=== PATIENT | female | born 1965 | race Caucasian/White ===

== ENCOUNTER → 2017-03-17 11:20 | Outpatient (CLI) | payer BC, SELFPAY ==
--- NOTE | 2017-03-17 11:27 | XR_ITS ---
XR knee RT 4V Comparison: Ultrasound right knee 02/14/2017 History: . Right knee pain. Walking last night and felt a pull and pop sensation he feels like he cannot the right. Technique: Weightbearing AP, lateral and Cox views were performed as well as oblique. Findings Very: Large patient. Lateral film demonstrates a small moderate joint effusion suprapatella bursa. No discrete fracture, but internal derangement suspect. Borderline narrowing medial compartment. [place] view demonstrates a lateral tilt of the patella but patella articulates satisfactorily with the femoral trochlear groove. Mild hypertrophic lipping along the lateral margin of patella at patellofemoral joint ' Impression: ] . No fracture evident. Joint effusion suprapatella bursa. Large patient. Satisfactory patellofemoral relationships, but noting accentuated lateral tilt of patella.
== END ==
PROVIDERS: PCP Internal Medicine Adolescent Medicine; Visit Provider Internal Medicine Adolescent Medicine
DX: M25.561 Pain in right knee (principal)
CPT/HCPCS: 73564

== ENCOUNTER → 2017-04-17 10:09 | Outpatient (CLI) | payer BC, SELFPAY ==
[2017-04-17 11:08] LABS: Basophils % 0.3 % (0.1-2.0); Eosinophils # 0.2 K/mm3 (0.0-0.4); Hematocrit 36.4 % (37.0-47.0); Hemoglobin 10.3 g/dL (12.2-16.2); Lymphocytes # 2.1 K/mm3 (0.7-4.5); Lymphocytes % 28.3 K/mm3 (10-50); Mean Corpuscular HGB Conc 28.2 g/dL (31.8-35.4); Mean Corpuscular Hemoglobin 21.4 pg (27.0-31.2); Mean Corpuscular Volume 75.7 fl (81-99); Monocytes # 0.5 K/mm3 (0.1-1.0); Neutrophils # 4.6 K/mm3 (1.8-7.8); Neutrophils % 62.4 % (37.0-80.0); Platelet Count 124 K/mm3 (142-424); Red Blood Count 4.81 M/mm3 (4.20-5.40); Red Cell Distribution Width 17.5 % (11.5-17.5); White Blood Count 7.4 K/mm3 (4.8-10.8)
[2017-04-17 12:02] LABS: Anion Gap 15.6 mEq/L (5-15); Blood Urea Nitrogen 16 mg/dL (7-18); Carbon Dioxide 27 mmol/L (21.0-32.0); Chloride 98 mmol/L (98-107); Creatinine,Serum 1.48 mg/dL (0.55-1.02); Estimated Glomerular Filt Rate 37 ml/min (>60); Ferritin 19 ng/mL (8-388); GFR (African American) 45 ML/MIN (>60); Glucose 366 mg/dL (74-106); Potassium 5.6 mmoL/L (3.5-5.1); Sodium 135 mmol/L (136-145)
== END ==
PROVIDERS: PCP Internal Medicine Adolescent Medicine; Visit Provider Nurse Practitioner Family
DX: E11.42 Type 2 diabetes mellitus with diabetic polyneuropathy (principal)
CPT/HCPCS: 36415; 80048; 82728; 85025

== ENCOUNTER 2017-04-25 07:03 | Day surgery (SDC) | payer BC, SELFPAY ==
[2017-04-25] VITALS (17 sets, daily range): BP systolic 109–161; BP diastolic 41–102; PULSE 96–113; RESP 14–99; TEMP 36.9; O2SAT 4–100; BMI 49.8
--- NOTE | 2017-04-25 08:46 | P.PCN_ITS ---
[facility] Procedure Note Procedure Note:: Upper Endoscopy Procedure Report: Esophagogastrojejunoscopy with cold biopsies Endoscopost: Yon Leigh II, MD Referring Physician: Flako Merino M.D. Date of Procedure: April 25, 2017 Equipment: Olympus GIF 180 standard upper endoscope Sedation: Fentanyl 200 mg IV/ Versed 11 mg IV Indications: Mrs. Cosby is a 51-year-old female with iron deficiency anemia. The patient did have a Rafal-en-Y gastric bypass (Dr. Aaron Houser) more than 10 years ago. She reports no melena. The patient reports no abdominal pain, weight loss, heartburn, reflux, indigestion or dyspepsia. She reports no dysphagia. She did have prior cholecystectomy in 2000. She does have chronic diabetes with polyneuropathy. She reports no use of anticoagulation or NSAIDs. She has not had any recent upper endoscopy and has not had prior colonoscopy. Procedure: Prior to the procedure, a history and physical exam was performed, and patient' s medications and allergies were reviewed. The risks, benefits and alternatives of the sedation and procedure were discussed with the patient. All questions were answered and informed consent was obtained. The patient was brought to the procedure room. Patient identification and proposed procedure were verified by the physician and the nurse. The patient was placed in a left lateral decubitus position and the scope was passed under direct vision. Throughout the procedure, the patient's blood pressure, pulse, and oxygen saturations were monitored continuously. The upper GI endoscopy was accomplished without difficulty. The patient tolerated the procedure well. Findings: The scope was passed directly into the upper esophagus and advanced to the Rafal limbs of jejunum. The jejunal mucosa of the afferent and efferent limbs were normal with normal mucosa and conniventes. Cold biopsies were taken from the jejunum. The scope was withdrawn through a normal gastric stoma into the gastric pouch. There was minimal erythema of the gastric pouch. The stomal anastomosis was normal and widely patent. There was no hiatal hernia. Cold biopsies were taken from the pouch. The scope was then withdrawn into the esophagus. The remainder of the esophageal mucosa was normal. Impression: 1. Normal Rafal-en-Y gastric bypass anatomy without anastomotic or stomal ulcerations Plan: I do feel that the patient most likely has anemia secondary to Rafal-en-Y gastric bypass. I will discuss the findings with the patient and family. I will proceed with diagnostic colonoscopy.
--- NOTE | 2017-04-25 08:52 | HMH.PROC ---
[facility] Procedure Note Procedure Note:: Colonoscopy Procedure Report: Colonoscopy with cold snare polypectomy and Endo Clip placement Endoscopist: Yon Leigh II, MD Referring physician: Flako Merino M.D. Date of Procedure: April 25, 2017 Equipment: Olympus 180 variable stiffness pediatric colonoscope Sedation: Fentanyl 200 mg IV/ Versed 17 mg IV Indication: Mrs. Cosby is a 51-year-old female with iron deficiency anemia. The patient did have a Rafal-en-Y gastric bypass (Dr. Aaron Houser) more than 10 years ago. She reports no melena. The patient reports no abdominal pain, weight loss, change in her bowel habits or family history of colon cancer or stomach cancer. She did have prior cholecystectomy in 2000. She does have chronic diabetes with polyneuropathy. She reports no use of anticoagulation or NSAIDs. She has not had any recent upper endoscopy and has not had prior colonoscopy. Her EGD had shown normal Rafal-en-Y gastric bypass anatomy. She does have some occasional hemorrhoidal bleeding which is spotty and bright red. Procedure: Prior to the procedure, a history and physical exam was performed, and patient's medications and allergies were reviewed. The risks, benefits and alternatives of the sedation and procedure were discussed with the patient. All questions were answered and informed consent was obtained. The patient was brought to the procedure room. Patient identification and proposed procedure were verified by the physician and the nurse. The patient was placed in a left lateral decubitus position and the scope was passed under direct vision. Throughout the procedure, the patient's blood pressure, pulse, and oxygen saturations were monitored continuously. The colonoscopy was accomplished without difficulty. The patient tolerated the procedure well. Findings: On digital rectal examination there was normal rectal tone. There were no external hemorrhoids. The colonoscope was introduced through the anal canal to the rectum and advanced to the cecum. The ileocecal valve and appendiceal orifice were identified. The scope was advanced a short distance into the ileum which appeared grossly normal. The scope was then withdrawn into the colon. The cecum, ascending and transverse colon and mucosa were grossly normal. There were scattered diverticuli throughout the colon but more predominantly descending and sigmoid colon (LEFT colon). There was a 11-12 mm polyp in the descending colon removed via cold snare polypectomy. The rectum itself was normal. Upon retroflexion within the rectum there were grade 1-2 internal hemorrhoids. Impression: 1. Descending colon polyp (11-12 mm) 2. Pandiverticulosis 3. Grade 1 internal hemorrhoids Plan: I did not see any etiology for the iron deficiency and I do feel that this is most likely related to the Rafal-en-Y gastric bypass. I would recommend Hemoccult testing. I will follow up the polyp pathology and recommend repeat colonoscopy again in 3-5 years based upon the polyp histology. I would encourage fiber supplementation on a long-term daily maintenance basis.
--- NOTE | 2017-04-25 08:56 | P.PCN_ITS ---
[facility] Procedure Note Procedure Note:: Colonoscopy Procedure Report: Colonoscopy with cold snare polypectomy and Endo Clip placement Endoscopist: Yon Leigh II, MD Referring physician: Flako Merino M.D. Date of Procedure: April 25, 2017 Equipment: Olympus 180 variable stiffness pediatric colonoscope Sedation: Fentanyl 200 mg IV/ Versed 17 mg IV Indication: Mrs. Cosby is a 51-year-old female with iron deficiency anemia. The patient did have a Rafal-en-Y gastric bypass (Dr. Aaron Houser) more than 10 years ago. She reports no melena. The patient reports no abdominal pain, weight loss, change in her bowel habits or family history of colon cancer or stomach cancer. She did have prior cholecystectomy in 2000. She does have chronic diabetes with polyneuropathy. She reports no use of anticoagulation or NSAIDs. She has not had any recent upper endoscopy and has not had prior colonoscopy. Her EGD had shown normal Rafal-en-Y gastric bypass anatomy. She does have some occasional hemorrhoidal bleeding which is spotty and bright red. Procedure: Prior to the procedure, a history and physical exam was performed, and patient' s medications and allergies were reviewed. The risks, benefits and alternatives of the sedation and procedure were discussed with the patient. All questions were answered and informed consent was obtained. The patient was brought to the procedure room. Patient identification and proposed procedure were verified by the physician and the nurse. The patient was placed in a left lateral decubitus position and the scope was passed under direct vision. Throughout the procedure, the patient's blood pressure, pulse, and oxygen saturations were monitored continuously. The colonoscopy was accomplished without difficulty. The patient tolerated the procedure well. Findings: On digital rectal examination there was normal rectal tone. There were no external hemorrhoids. The colonoscope was introduced through the anal canal to the rectum and advanced to the cecum. The ileocecal valve and appendiceal orifice were identified. The scope was advanced a short distance into the ileum which appeared grossly normal. The scope was then withdrawn into the colon. The cecum, ascending and transverse colon and mucosa were grossly normal. There were scattered diverticuli throughout the colon but more predominantly descending and sigmoid colon (LEFT colon). There was a 11-12 mm polyp in the descending colon removed via cold snare polypectomy. The rectum itself was normal. Upon retroflexion within the rectum there were grade 1-2 internal hemorrhoids. Impression: 1. Descending colon polyp (11-12 mm) 2. Pandiverticulosis 3. Grade 1 internal hemorrhoids Plan: I did not see any etiology for the iron deficiency and I do feel that this is most likely related to the Rafal-en-Y gastric bypass. I would recommend Hemoccult testing. I will follow up the polyp pathology and recommend repeat colonoscopy again in 3 -5 years based upon the polyp histology. I would encourage fiber supplementation on a long-term daily maintenance basis.
[2017-05-01 15:05] LABS: POC Glucose,Bedside 149 mg/dL (70-110)
== END 2017-04-25 10:05 ==
LOC: OUTP 07:04
PROVIDERS: Family Provider Nurse Practitioner Family; PCP Internal Medicine Adolescent Medicine; Visit Provider Internal Medicine Gastroenterology
PROC: 0DJ08ZZ Inspection of Upper Intestinal Tract, Via Natural or Artificial Opening Endoscopic (ICD-10-PCS; CPT 43235; principal; 2017-04-25 08:00)
DX: D50.9 Iron deficiency anemia, unspecified (principal); Z98.84 Bariatric surgery status; E11.42 Type 2 diabetes mellitus with diabetic polyneuropathy
CPT/HCPCS: 43239; 82962; 99152; 99153

== ENCOUNTER 2017-06-17 09:10 | Outpatient (CLI) | payer BC, SELFPAY ==
[2017-06-17 09:45] VITALS: BP 136/73; PULSE 68; RESP 20; TEMP 36.9; O2SAT 98
[2017-06-17 10:45] VITALS: BP 118/74; PULSE 66; RESP 20; TEMP 36.9; O2SAT 96
[2017-06-17 15:02] VITALS: BP 122/70; PULSE 72; RESP 20; TEMP 36.7; O2SAT 96
== END 2017-06-17 10:50 | disposition home or self-care (01) ==
LOC: INF 09:25
PROVIDERS: Family Provider Nurse Practitioner Family; PCP Internal Medicine Adolescent Medicine; Visit Provider Internal Medicine
DX: D50.9 Iron deficiency anemia, unspecified (principal)
CPT/HCPCS: 96365; J1756

== ENCOUNTER 2017-06-27 08:24 | Outpatient (CLI) | payer BC, SELFPAY ==
[2017-06-27 08:55] VITALS: BP 126/74; PULSE 90; RESP 18; TEMP 36.3
[2017-06-27 09:25] VITALS: BP 128/67; PULSE 91; RESP 18
== END 2017-06-27 09:45 | disposition home or self-care (01) ==
LOC: INF 08:24
PROVIDERS: Family Provider Nurse Practitioner Family; PCP Internal Medicine Adolescent Medicine; Visit Provider Internal Medicine
DX: D50.0 Iron deficiency anemia secondary to blood loss (chronic) (principal)
CPT/HCPCS: 96365; J1756

== ENCOUNTER 2017-07-04 08:10 | Outpatient (CLI) | payer BC, SELFPAY ==
[2017-07-04 09:00] VITALS: BP 147/76; PULSE 94; RESP 18
[2017-07-04 09:30] VITALS: BP 140/70; PULSE 100; RESP 18
== END 2017-07-04 09:45 | disposition home or self-care (01) ==
LOC: INF 08:20
PROVIDERS: Family Provider Nurse Practitioner Family; PCP Internal Medicine Adolescent Medicine; Visit Provider Internal Medicine
DX: D50.0 Iron deficiency anemia secondary to blood loss (chronic) (principal)
CPT/HCPCS: 96365; J1756

== ENCOUNTER 2017-07-11 08:20 | Outpatient (CLI) | payer BC, SELFPAY ==
[2017-07-11 08:15] VITALS: BP 111/63; PULSE 72; RESP 18; TEMP 36.5; O2SAT 100
[2017-07-11 09:05] VITALS: BP 120/88; PULSE 80; RESP 20; TEMP 36.6; O2SAT 99
[2017-07-11 09:20] VITALS: BP 121/64; PULSE 83; RESP 20; TEMP 36.6; O2SAT 99
[2017-07-11 09:35] VITALS: BP 134/66; PULSE 83; RESP 20; TEMP 36.6; O2SAT 98
[2017-07-11 09:53] VITALS: BP 127/66; PULSE 98; RESP 20; TEMP 36.6; O2SAT 99
== END 2017-07-11 09:53 | disposition home or self-care (01) ==
LOC: INF 09:05
PROVIDERS: Family Provider Nurse Practitioner Family; PCP Internal Medicine Adolescent Medicine; Visit Provider Internal Medicine
DX: D50.9 Iron deficiency anemia, unspecified (principal)
CPT/HCPCS: 96365; J1756

== ENCOUNTER 2017-07-18 08:10 | Outpatient (CLI) | payer BC, SELFPAY ==
[2017-07-18 08:40] VITALS: BP 131/59; PULSE 80; RESP 18; TEMP 36.5; O2SAT 100
[2017-07-18 09:15] VITALS: BP 136/72; PULSE 94; RESP 18
== END 2017-07-18 09:25 | disposition home or self-care (01) ==
LOC: INF 08:17
PROVIDERS: Family Provider Nurse Practitioner Family; PCP Internal Medicine Adolescent Medicine; Visit Provider Internal Medicine
DX: D50.9 Iron deficiency anemia, unspecified (principal)
CPT/HCPCS: 96365; J1756

== ENCOUNTER 2017-08-11 08:21 | Outpatient (CLI) | payer BC, SELFPAY ==
[2017-08-11 08:54] VITALS: BP 156/84; PULSE 80; RESP 18; TEMP 36.7; O2SAT 98
[2017-08-11 09:15] VITALS: BP 156/89; PULSE 78; RESP 18
[2017-08-11 09:55] VITALS: BP 148/74; PULSE 72; RESP 18; TEMP 36.6; O2SAT 98
== END 2017-08-11 10:10 | disposition home or self-care (01) ==
LOC: INF 08:21
PROVIDERS: Family Provider Nurse Practitioner Family; PCP Internal Medicine Adolescent Medicine; Visit Provider Internal Medicine
DX: D50.9 Iron deficiency anemia, unspecified (principal)
CPT/HCPCS: 96365; J1756

== ENCOUNTER → 2017-12-19 11:54 | Outpatient (CLI) | payer BC, SELFPAY ==
[2017-12-19 12:22] LABS: Basophils % 0.5 % (0.1-2.0); Eosinophils # 0.1 K/mm3 (0.0-0.4); Eosinophils % 3.1 % (0.1-12.0); Hematocrit 45.1 % (37.0-47.0); Hemoglobin 14.1 g/dL (12.2-16.2); Lymphocytes # 1.1 K/mm3 (0.7-4.5); Lymphocytes % 25.3 K/mm3 (10-50); Mean Corpuscular HGB Conc 31.3 g/dL (31.8-35.4); Mean Corpuscular Hemoglobin 28.5 pg (27.0-31.2); Mean Corpuscular Volume 91.2 fl (81-99); Mean Platelet Volume 9.6 fl (7.4-10.4); Monocytes # 0.3 K/mm3 (0.1-1.0); Monocytes % 5.8 % (1.7-9.3); Neutrophils % 65.2 % (37.0-80.0); Platelet Count 111 K/mm3 (142-424); Red Blood Count 4.95 M/mm3 (4.20-5.40); Red Cell Distribution Width 13.6 % (11.5-17.5); White Blood Count 4.5 K/mm3 (4.8-10.8)
[2017-12-19 12:31] LABS: Strep Scrn Group A (Rapid) Negative (Negative)
[2017-12-19 12:40] LABS: Hemoglobin A1C 7.1 % (0.0-7.0)
[2017-12-19 15:10] LABS: Alanine Aminotransferase 39 U/L (12-78); Albumin Level 3.6 gm/dL (3.4-5.0); Albumin/Globulin Ratio 1.2 (1.1-1.8); Alkaline Phosphatase 102 U/L (46-116); Aspartate Amino Transferase 43 U/L (15-37); Bilirubin,Total 1.6 mg/dL (0.2-1.0); Blood Urea Nitrogen 11 mg/dL (7-18); Calcium 8.9 mg/dL (8.5-10.1); Carbon Dioxide 27 mmol/L (21.0-32.0); Chloride 103 mmol/L (98-107); Chol/HDL Ratio 2.8 (1-3.5); Cholesterol 158 mg/dL (140-200); Estimated Glomerular Filt Rate 106 ml/min (>60); Ferritin 36 ng/mL (8-388); GFR (African American) 128 ML/MIN (>60); Glucose 118 mg/dL (74-106); HDL Cholesterol 57 mg/dL (29-89); LDL Cholesterol 86 mg/dL (0-130); Sodium 142 mmol/L (136-145); Total Protein,Serum 6.6 gm/dL (6.4-8.2); Triglycerides 74 mg/dL (30-200); VLDL Cholesterol 15 mg/dL (0-40)
[2017-12-20 10:21] LABS: Vitamin D 25 Hydroxy 41.8 ng/mL (30.0-100.0)
[2017-12-20 18:13] LABS: Microalbumin, Urine 22.7 ug/mL (Not Estab.)
== END ==
PROVIDERS: PCP Nurse Practitioner Family; Visit Provider Nurse Practitioner Family
DX: J02.9 Acute pharyngitis, unspecified (principal); R11.2 Nausea with vomiting, unspecified; D50.8 Other iron deficiency anemias; I10 Essential (primary) hypertension; E55.9 Vitamin D deficiency, unspecified; E11.42 Type 2 diabetes mellitus with diabetic polyneuropathy
CPT/HCPCS: 36415; 80053; 80061; 82043; 82652; 82728; 83036; 85025; 87070; 87430

== ENCOUNTER → 2018-01-27 09:42 | Outpatient (POV) | payer BC, SELFPAY ==
[2018-01-27 10:08] VITALS: BP 149/77; RESP 18; O2SAT 98
--- NOTE | 2018-01-27 10:28 | HMH.PMCON ---
Assessment and Plan (1) Neuropathy Current visit: Yes Status: Chronic Category: Medical Code(s): G62.9 - Polyneuropathy, unspecified (2) Fibromyalgia Current visit: Yes Status: Chronic Category: Medical Code(s): M79.7 - Fibromyalgia (3) Degenerative disc disease Current visit: Yes Status: Chronic Category: Medical - Assessment and plan all Dx Assessment and Plan for all problems:: I believe the patient appropriate candidate for narcotics we is receiving from her primary care physician. Patient and I had a long discussion in regards to the Lyrica assistance program. We will see if she is eligible for this. Patient and I had a discussion with the neuro stimulation as well. I do believe that that would be beneficial for her long-term. I gave her information in regards to this and will follow up with her in 2 weeks address any questions she may have. This note was dictated using voice recognition software and may contain errors or omissions HPI - Data of Consult Consult date: 01/27/18 Requesting Physician: Madison Wray APRN Primary Care Provider: Flako Merino MD - Consult Narrative Reason for consult: Back pain, leg pain History of present illness: Ms. Cosby is a 52 year old female who presents today for consultation in regards to her generalized pain. Patient has low back pain along with neuropathy and fibromyalgia. Patient states that working increases her pain while resting decreases her pain. She rates her pain an 8 out of 10. Patient has tried and failed chiropractic therapy, physical therapy, massage therapy. Patient has been to pain management in the past and received medial branch blocks along with a risotto means of the lower lumbar. Patient states that this was beneficial for a limited amount of time. Patient had gastric bypass 15 years ago. Patient currently on gabapentin and [place]. Patient has numbness and tingling in her bilateral legs and feet. Patient was on Lyrica and she states that it did extremely well for her however it was cost prohibitive. CC: Madison Wray APRN [facility] History I have reviewed the patient's past medical history: Yes Medical History: Reports:: Diabetes Mellitus Type 2 Denies:: Diabetes Mellitus Type 1, Internal Pacemaker, Lung Disease, Seizures Other Medical History: Reports: Anemia, Arthritis, Fibromyalgia, Hoarseness, Other (neuropathy, allergies) Laterality Cases: Bilateral: Other Other Surgeries: Yes: Bariatric Surgery, Colonoscopy, , Tubal Ligation, Other (gastric bypass,gallbladder). No: Pacemaker Amputation: No Fractures: No - *Social History Smoking Status: Never smoker Alcohol Intake: never Alcohol Intake Frequency:: holidays/special occasions only Substance Use Type: denies use Occupational Status: employed, other Housing: house - Psychiatric History Expresses thoughts of harming self/others: None Suicide Plan Description: No Plan *Family Hx:: Diabetes, Coronary Artery Disease, Hypertension, Stroke, Cancer Review of Systems - Review of Systems ROS General: no recent weight change, no fever, no sleep disturbances Respiratory: no cough, no shortness of air, no recurring pulmonary infections Cardiovascular/Peripheral Vascular: No chest pain, No palpitations, no edema, no shortness of breath. Gastrointestinal: no incontinence, normal bowel movements reported Genitourinary: no incontinence Musculoskeletal: Back pain, leg pain, neck pain, arm pain Psychiatric: normal mood/ affect Neurological: [denies weakness in extremities], [denies balance issues] Meds Home Medications Medication Instructions Recorded Confirmed Type citalopram 10 mg tablet 60 mg PO QDAY 03/26/17 10/27/17 History dapagliflozin 5 mg tablet 5 mg PO QAM 03/26/17 10/27/17 History hydrocodone 7.5 mg-acetaminophen 1 tab PO Q8HP PRN 03/26/17 10/27/17 History 325 mg tablet metformin 1,000 mg tablet 1,000 mg PO BID 03/26/1710/27
--- NOTE | 2018-01-27 10:31 | P.CONS_ITS ---
Assessment and Plan (1) Neuropathy Current visit: Yes Status: Chronic Category: Medical Code(s): G62.9 - Polyneuropathy, unspecified (2) Fibromyalgia Current visit: Yes Status: Chronic Category: Medical Code(s): M79.7 - Fibromyalgia (3) Degenerative disc disease Current visit: Yes Status: Chronic Category: Medical - Assessment and plan all Dx Assessment and Plan for all problems:: I believe the patient appropriate candidate for narcotics we is receiving from her primary care physician. Patient and I had a long discussion in regards to the Lyrica assistance program. We will see if she is eligible for this. Patient and I had a discussion with the neuro stimulation as well. I do believe that that would be beneficial for her long-term. I gave her information in regards to this and will follow up with her in 2 weeks address any questions she may have. This note was dictated using voice recognition software and may contain errors or omissions HPI - Data of Consult Consult date: 01/27/18 Requesting Physician: Madison Wray APRN Primary Care Provider: Flako Merino MD - Consult Narrative Reason for consult: Back pain, leg pain History of present illness: Ms. Cosby is a 52 year old female who presents today for consultation in regards to her generalized pain. Patient has low back pain along with neuropathy and fibromyalgia. Patient states that working increases her pain while resting decreases her pain. She rates her pain an 8 out of 10. Patient has tried and failed chiropractic therapy, physical therapy, massage therapy. Patient has been to pain management in the past and received medial branch blocks along with a risotto means of the lower lumbar. Patient states that this was beneficial for a limited amount of time. Patient had gastric bypass 15 years ago. Patient currently on gabapentin and [place]. Patient has numbness and tingling in her bilateral legs and feet. Patient was on Lyrica and she states that it did extremely well for her however it was cost prohibitive. CC: Madison Wray APRN [facility] History I have reviewed the patient's past medical history: Yes Medical History: Reports:: Diabetes Mellitus Type 2 Denies:: Diabetes Mellitus Type 1, Internal Pacemaker, Lung Disease, Seizures Other Medical History: Reports: Anemia, Arthritis, Fibromyalgia, Hoarseness, Other (neuropathy, allergies) Laterality Cases: Bilateral: Other Other Surgeries: Yes: Bariatric Surgery, Colonoscopy, , Tubal Ligation, Other (gastric bypass,gallbladder). No: Pacemaker Amputation: No Fractures: No - *Social History Smoking Status: Never smoker Alcohol Intake: never Alcohol Intake Frequency:: holidays/special occasions only Substance Use Type: denies use Occupational Status: employed, other Housing: house - Psychiatric History Expresses thoughts of harming self/others: None Suicide Plan Description: No Plan *Family Hx:: Diabetes, Coronary Artery Disease, Hypertension, Stroke, Cancer Review of Systems - Review of Systems ROS General: no recent weight change, no fever, no sleep disturbances Respiratory: no cough, no shortness of air, no recurring pulmonary infections Cardiovascular/Peripheral Vascular: No chest pain, No palpitations, no edema, no shortness of breath. Gastrointestinal: no incontinence, normal bowel movements reported Genitourinary: no incontinence Musculoskeletal: Back pain, leg pain, neck pain, arm pain Psychiatric: normal mood/ affect Neurological: [denies weakness in extremities]
== END ==
PROVIDERS: PCP Internal Medicine Adolescent Medicine; Visit Provider Clinical Nurse Specialist Family Health
DX: G62.9 Polyneuropathy, unspecified (principal); M79.7 Fibromyalgia
CPT/HCPCS: 99202

== ENCOUNTER → 2018-02-10 08:56 | Outpatient (POV) | payer BC, SELFPAY ==
[2018-02-10 09:20] VITALS: BP 141/80; PULSE 92; RESP 20; O2SAT 98; BMI 45.3
--- NOTE | 2018-02-10 09:20 | HMH.PAINSOAP ---
[facility] Pain Management SOAP Note Subjective:: Patient is a pleasant 52-year-old white female who presents today for follow-up after initial consultation. Patient has low back pain along with bilateral leg pain and fibromyalgia neuropathy. Patient I do believe would be a good candidate for a neurostimulator. Patient and I discussed this and I answered her questions. Patient is also been to try to get it on the Lyrica assistance program because this is been beneficial for her in the past. Patient does not have a recent MRI we will order one and send her for psychological evaluation. She rates her pain an 8 out of 10 she has failed other modalities and therapies including medications, anti-inflammatories, career counselor, physical therapy, massage therapy. ROS General: no recent weight change, no fever, no sleep disturbances Respiratory: no cough, no shortness of air, no recurring pulmonary infections Cardiovascular/Peripheral Vascular: No chest pain, No palpitations, no edema, no shortness of breath. Gastrointestinal: no incontinence, normal bowel movements reported Genitourinary: no incontinence Musculoskeletal: Back pain, leg pain Psychiatric: normal mood/ affect Neurological: [denies weakness in extremities], [denies balance issues] Objective:: Physical Exam General: Alert and oriented x3, no acute distress, pleasant and cooperative, [on room air] Lungs: Resps E/U, Symmetrical chest expansion, [CTA bilateral] Eyes: PERRL Musculoskeletal: Flexion and extension of lumbar spine somewhat guarded secondary to pain, deep tendon reflexes normal, strength in upper and lower extremities [5/5], [abnormal gait noted] Neurological: speech clear, commanding officer traffic division equal, no gross sensory deficits Assessment:: Degenerative disc disease lumbar spine with lumbar radiculopathy along with fibromyalgia and neuropathy Plan:: We will set the patient up for an MRI we will also help her with the Lyrica assistance program as needed. We will review this MRI and then we will send her for psychological evaluation to determine if she is a good candidate for nerve stimulation for her neuropathy. This note was dictated using voice recognition software and may contain errors or omissions
--- NOTE | 2018-02-10 09:23 | P.CONS_ITS ---
[facility] Pain Management SOAP Note Subjective:: Patient is a pleasant 52-year-old white female who presents today for follow-up after initial consultation. Patient has low back pain along with bilateral leg pain and fibromyalgia neuropathy. Patient I do believe would be a good candidate for a neurostimulator. Patient and I discussed this and I answered her questions. Patient is also been to try to get it on the Lyrica assistance program because this is been beneficial for her in the past. Patient does not have a recent MRI we will order one and send her for psychological evaluation. She rates her pain an 8 out of 10 she has failed other modalities and therapies including medications, anti-inflammatories, healthcare corporate account director, physical therapy, massage therapy. ROS General: no recent weight change, no fever, no sleep disturbances Respiratory: no cough, no shortness of air, no recurring pulmonary infections Cardiovascular/Peripheral Vascular: No chest pain, No palpitations, no edema, no shortness of breath. Gastrointestinal: no incontinence, normal bowel movements reported Genitourinary: no incontinence Musculoskeletal: Back pain, leg pain Psychiatric: normal mood/ affect Neurological: [denies weakness in extremities], [denies balance issues] Objective:: Physical Exam General: Alert and oriented x3, no acute distress, pleasant and cooperative, [on room air] Lungs: Resps E/U, Symmetrical chest expansion, [CTA bilateral] Eyes: PERRL Musculoskeletal: Flexion and extension of lumbar spine somewhat guarded secondary to pain, deep tendon reflexes normal, strength in upper and lower extremities [5/5], [abnormal gait noted] Neurological: speech clear, provisioning analyst equal, no gross sensory deficits Assessment:: Degenerative disc disease lumbar spine with lumbar radiculopathy along with fibromyalgia and neuropathy Plan:: We will set the patient up for an MRI we will also help her with the Lyrica assistance program as needed. We will review this MRI and then we will send her for psychological evaluation to determine if she is a good candidate for nerve stimulation for her neuropathy. This note was dictated using voice recognition software and may contain errors or omissions
== END ==
PROVIDERS: PCP Nurse Practitioner Family; Visit Provider Clinical Nurse Specialist Family Health
DX: M51.16 Intervertebral disc disorders with radiculopathy, lumbar region (principal); M79.7 Fibromyalgia; G62.9 Polyneuropathy, unspecified
CPT/HCPCS: 99213

== ENCOUNTER → 2018-02-13 11:02 | Outpatient (CLI) | payer BC, SELFPAY ==
--- NOTE | 2018-02-13 11:08 | MR_ITS ---
MR lumbar spine wo con, MR 3-d myelogram/MRCP HISTORY: Low back pain, bilateral leg tingling and numbness, MRi for neuro stim trial. ITS.REASON: DDD, WORSENING PAIN ORDERING PHYSICIAN: Madison Wray PATIENT AGE: 52 years Comparison: 02/13/2018 TECHNIQUE: Standard multiplanar multiecho sequences are performed without contrast. 3-D MIP and myelographic images are also rendered and reviewed FINDINGS: Normal alignment. The spinal cord and at the L1-L2 level. T12-L1, L1-L2 and L2-L3 have an unremarkable appearance. L3-L4: There is mild facet and ligamentum flavum hypertrophy without significant foraminal or lateral recess narrowing. L4-L5: Minimal concentric bulging disc along with facet and ligamentum flavum hypertrophy with mild bilateral lateral recess and foraminal narrowing. L5-S1: Mild degenerative disc disease with minimal bulging disc along with facet and ligamentum flavum hypertrophy with mild bilateral lateral recess narrowing and no significant foraminal narrowing. L5-S1: Degenerative disc disease with bulging disc along with facet and ligamentum flavum hypertrophy with mild bilateral foraminal narrowing slightly greater on the right. No disc herniation and no significant change from 02/26/2011. IMPRESSION: There is mild multilevel lumbar spondylosis with facet and ligamentum flavum hypertrophy and the bulging disc as detailed above. Please see above for detailed description at each level. No extruded herniated disc or canal stenosis and no significant change from 02/26/2011
== END ==
PROVIDERS: PCP Nurse Practitioner Family; Visit Provider Clinical Nurse Specialist Family Health
DX: M51.36 Other intervertebral disc degeneration, lumbar region (principal)
CPT/HCPCS: 72148; 76376

== ENCOUNTER → 2018-03-31 07:52 | Outpatient (CLI) | payer BC, SELFPAY ==
--- NOTE | 2018-03-31 07:58 | CT_ITS ---
CT abdomen pelvis wo con CLINICAL INDICATION: Umbilical hernia, preoperative evaluation for access skin removal ITS.REASON: EXCESS SKIN OF ABDOMEN, POSSIBLE HERNIA ORDERING PHYSICIAN: Lizzie Benavides PATIENT AGE: 52 years COMPARISON: None TECHNIQUE: Axial images obtained with sagittal and coronal reformats. All CT scans at the facility use one or more dose reduction, viz: automated exposure control, ma/kV adjustment per patient size (including targeted exams where dose is matched to indication, i.e. head), or iterative reconstruction technique. PROCEDURE: Oral Contrast: None IV Contrast: None . FINDINGS: Lower thorax: There is patchy groundglass density in the right middle lobe suggesting an area of pneumonitis. There is an 8 mm nodular opacity left lower lobe posteriorly. This is noncalcified and has developed in the interval. This is nonspecific. Prior cholecystectomy. There is minimal irregularity of the left lobe of the liver which is slightly enlarged. There is also splenomegaly at 15 cm. The portal vein is also slightly prominent. There is a dilated portal venous collateral along the falciform ligament/umbilical vein as seen previously. There has been a prior gastric bypass. Bilateral renal calculi are noted with a stone or cluster of stones measuring up to 13 mm in the lower pole of the right and up to 5 mm stone in the lower pole on the left. No hydronephrosis. No ureteral calculi. Unremarkable appendix. No intestinal obstruction or free air. No pelvic mass or abnormal fluid collection. Bilateral tubal ligation clips are present. There is increased density in the subcutaneous fat within the panniculus. There is only a tiny umbilical hernia containing fat. Mildly prominent umbilical vein noted deep to the umbilicus. There is a suture line of the small bowel in the left lower quadrant. No acute bony anomalies. IMPRESSION: 1. Findings suggesting cirrhosis with minimal wall irregularity of the enlarged left hepatic lobe, splenomegaly, prominence of the portal system along with dilated portal venous collaterals 2. Prior gastric bypass. 3. Bilateral renal calculi. 4. There is only a tiny follicle hernia containing fat. The remaining stranding of subcutaneous fat of the panniculus
== END ==
PROVIDERS: PCP Internal Medicine Adolescent Medicine; Visit Provider Surgery Plastic and Reconstructive Surgery
DX: Z01.818 Encounter for other preprocedural examination (principal); L98.7 Excessive and redundant skin and subcutaneous tissue
CPT/HCPCS: 74176

== ENCOUNTER → 2018-03-31 08:40 | Outpatient (POV) | payer BC, SELFPAY ==
--- NOTE | 2018-03-31 09:04 | HMH.PAINSOAP ---
[facility] Pain Management SOAP Note Subjective:: Patient is a pleasant 52-year-old white female who presents today for follow-up after MRI. Patient MRI does have pathology including bulging disks and facet arthropathy. Patient has been in pain management before where she received epidurals along with facet joint injections with no long-term relief. Patient and I have discussed the neurostimulator and she is interested in moving forward with this. We will get the patient set up for psychological evaluation. ROS General: no recent weight change, no fever, no sleep disturbances Respiratory: no cough, no shortness of air, no recurring pulmonary infections Cardiovascular/Peripheral Vascular: No chest pain, No palpitations, no edema, no shortness of breath. Gastrointestinal: no incontinence, normal bowel movements reported Genitourinary: no incontinence Musculoskeletal: Back pain, leg pain Psychiatric: normal mood/ affect Neurological: [denies weakness in extremities], [denies balance issues] Objective:: Physical Exam General: Alert and oriented x3, no acute distress, pleasant and cooperative, [on room air] Lungs: Resps E/U, Symmetrical chest expansion, Eyes: PERRL Musculoskeletal: Flexion and extension of lumbar spine somewhat guarded secondary to pain, deep tendon reflexes normal, strength in upper and lower extremities [5/5], [abnormal gait noted] Neurological: speech clear, 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 I will follow-up with her after this. Dr. Negrete has reviewed this note and agrees with this plan of care. This note was dictated using voice recognition software and may contain errors or omissions
[2018-03-31 09:07] VITALS: BP 112/57; PULSE 99; RESP 18; O2SAT 99; BMI 45.4
--- NOTE | 2018-03-31 09:07 | P.CONS_ITS ---
[facility] Pain Management SOAP Note Subjective:: Patient is a pleasant 52-year-old white female who presents today for follow-up after MRI. Patient MRI does have pathology including bulging disks and facet arthropathy. Patient has been in pain management before where she received epidurals along with facet joint injections with no long-term relief. Patient and I have discussed the neurostimulator and she is interested in moving forward with this. We will get the patient set up for psychological evaluation. ROS General: no recent weight change, no fever, no sleep disturbances Respiratory: no cough, no shortness of air, no recurring pulmonary infections Cardiovascular/Peripheral Vascular: No chest pain, No palpitations, no edema, no shortness of breath. Gastrointestinal: no incontinence, normal bowel movements reported Genitourinary: no incontinence Musculoskeletal: Back pain, leg pain Psychiatric: normal mood/ affect Neurological: [denies weakness in extremities], [denies balance issues] Objective:: Physical Exam General: Alert and oriented x3, no acute distress, pleasant and cooperative, [on room air] Lungs: Resps E/U, Symmetrical chest expansion, Eyes: PERRL Musculoskeletal: Flexion and extension of lumbar spine somewhat guarded secondary to pain, deep tendon reflexes normal, strength in upper and lower extremities [5/5], [abnormal gait noted] Neurological: speech clear, 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 I will follow-up with her after this. Dr. Negrete has reviewed this note and agrees with this plan of care. This note was dictated using voice recognition software and may contain errors or omissions
== END ==
PROVIDERS: PCP Internal Medicine Adolescent Medicine; Visit Provider Clinical Nurse Specialist Family Health
DX: M51.16 Intervertebral disc disorders with radiculopathy, lumbar region (principal); G62.9 Polyneuropathy, unspecified; M79.7 Fibromyalgia
CPT/HCPCS: 99213

== ENCOUNTER → 2018-04-06 13:14 | Outpatient (CLI) | payer BC, SELFPAY ==
--- NOTE | 2018-04-06 13:18 | XR_ITS ---
XR chest 2V HISTORY: ITS.REASON: COUGH, SOB ORDERING PHYSICIAN: Helen Gonzalez PATIENT AGE: 52 years COMPARISON: None FINDINGS: The cardiomediastinal silhouette and pulmonary vascularity are within normal limits. The lungs are clear without infiltrates, suspicious nodules, or pleural effusions. No acute bony abnormalities. IMPRESSION: Negative chest, no acute finding
== END ==
PROVIDERS: PCP Internal Medicine Adolescent Medicine; Visit Provider Nurse Practitioner Family
DX: R05 Cough (principal); R06.02 Shortness of breath
CPT/HCPCS: 71046

== ENCOUNTER → 2018-05-08 07:47 | Outpatient (CLI) | payer BC, SELFPAY ==
--- NOTE | 2018-05-08 07:49 | MR_ITS ---
MR cervical spine wo con, MR 3-d myelogram/MRCP HISTORY: Right-sided neck pain Headache that lated x2wks. Neck pain on Rt side. ITS.REASON: CERVICAL PAIN ORDERING PHYSICIAN: Letty Mathias PATIENT AGE: 52 years Comparison: None TECHNIQUE: Standard multiplanar multiecho sequences are performed without contrast. 3-D MIP and myelographic images are also rendered and reviewed FINDINGS: There is normal alignment. The craniocervical junction has an unremarkable appearance. C2-C3: Unremarkable C3-C4: Unremarkable. C4-C5: Unremarkable. C5-C6: Minimal bulging disc very slightly eccentric to the left without impingement or narrowing. C6-C7: Minimal bulging disc slightly eccentric to the left without impingement. C7-T1: Unremarkable. The spinal cord has an unremarkable appearance. No canal stenosis or extruded herniated disc. IMPRESSION: 1. Minimal bulging discs at C5-C6 and C6-C7 slightly eccentric toward the left without impingement. 2. Otherwise negative MRI of the cervical spine
== END ==
PROVIDERS: PCP Nurse Practitioner Family; Visit Provider Nurse Practitioner Family
DX: M54.2 Cervicalgia (principal)
CPT/HCPCS: 72141; 76376

== ENCOUNTER → 2018-05-19 11:49 | Outpatient (CLI) | payer BC, SELFPAY ==
[2018-05-19 12:28] LABS: Basophils % 0.5 % (0.1-2.0); Eosinophils # 0.1 K/mm3 (0.0-0.4); Eosinophils % 1.5 % (0.1-12.0); Hematocrit 42.6 % (37.0-47.0); Hemoglobin 13.8 g/dL (12.2-16.2); Lymphocytes # 1.2 K/mm3 (0.7-4.5); Lymphocytes % 21.3 % (10-50); Mean Corpuscular HGB Conc 32.4 g/dL (31.8-35.4); Mean Corpuscular Volume 92.8 fl (81-99); Mean Platelet Volume 9.8 fl (7.4-10.4); Monocytes # 0.3 K/mm3 (0.1-1.0); Monocytes % 5.5 % (1.7-9.3); Neutrophils # 3.9 K/mm3 (1.8-7.8); Neutrophils % 71.3 % (37.0-80.0); Platelet Count 106 K/mm3 (142-424); Red Blood Count 4.59 M/mm3 (4.20-5.40); Red Cell Distribution Width 14.2 % (11.5-17.5); White Blood Count 5.5 K/mm3 (4.8-10.8)
[2018-05-19 13:10] LABS: Alanine Aminotransferase 37 U/L (12-78); Albumin Level 3.6 gm/dL (3.4-5.0); Albumin/Globulin Ratio 1.2 (1.1-1.8); Alkaline Phosphatase 97 U/L (46-116); Anion Gap 15.1 mEq/L (5-15); Aspartate Amino Transferase 36 U/L (15-37); Bilirubin,Total 1.4 mg/dL (0.2-1.0); Blood Urea Nitrogen 13 mg/dL (7-18); Calcium 9.1 mg/dL (8.5-10.1); Carbon Dioxide 28 mmol/L (21.0-32.0); Chloride 102 mmol/L (98-107); Chol/HDL Ratio 2.9 (1-3.5); Cholesterol 169 mg/dL (140-200); Creatinine,Serum 0.81 mg/dL (0.55-1.02); Estimated Glomerular Filt Rate 75 ml/min (>60); Ferritin 43 ng/mL (8-388); GFR (African American) 91 ML/MIN (>60); Glucose 111 mg/dL (74-106); HDL Cholesterol 58 mg/dL (29-89); LDL Cholesterol 96 mg/dL (0-130); Potassium 4.1 mmoL/L (3.5-5.1); Sodium 141 mmol/L (136-145); Thyroid Stimulating Hormone 0.94 uIU/ml (0.358-3.740); Total Protein,Serum 6.6 gm/dL (6.4-8.2); Triglycerides 73 mg/dL (30-200); VLDL Cholesterol 15 mg/dL (0-40)
[2018-05-19 15:15] LABS: Hemoglobin A1C 6.8 % (0.0-7.0)
[2018-05-20 07:55] LABS: Vitamin D 25 Hydroxy 44.8 ng/mL (30.0-100.0)
[2018-05-20 08:33] LABS: Iron 79 ug/dL (27-159); UIBC 243 ug/dL (131-425)
[2018-05-20 08:46] LABS: Iron Saturation 25 % (15-55); Vitamin B12 340 pg/mL (232-1245)
[2018-05-20 11:19] LABS: Creatinine, Urine 111.3 mg/dL (Not Estab.); Microalbumin, Urine 35.5 ug/mL (Not Estab.)
== END ==
PROVIDERS: Visit Provider Nurse Practitioner Family
DX: E11.42 Type 2 diabetes mellitus with diabetic polyneuropathy (principal); E55.9 Vitamin D deficiency, unspecified; E53.8 Deficiency of other specified B group vitamins; R53.81 Other malaise; Z86.2 Personal history of diseases of the blood and blood-forming organs and certain disorders involving the immune mechanism; Z79.84 Long term (current) use of oral hypoglycemic drugs
CPT/HCPCS: 36415; 80053; 80061; 82043; 82570; 82607; 82652; 82728; 83036; 83540; 83550; 84443; 85025

== ENCOUNTER → 2018-05-25 14:33 | Outpatient (POV) | payer BC, SELFPAY ==
[2018-05-25 15:29] VITALS: BP 154/79; PULSE 108; RESP 18; O2SAT 98; BMI 43.7
--- NOTE | 2018-05-26 08:05 | HMH.PAINSOAP ---
[facility] Pain Management SOAP Note Subjective:: Patient is a pleasant 52-year-old white female who presents today for follow-up after MRI. Patient cervical MRI has some slight degeneration. Lumbar MRI has degeneration along with bulging disks. Patient states most of her pains in her low back and bilateral legs. She also suffers from fibromyalgia and neuropathy. Patient and I have discussed the neurostimulator in the past. Patient rates her pain a 6 out of 10 today. Patient states that it is getting increasingly difficult to do activities of daily living due to her pain. Patient has tried and failed multiple modalities of treatment including epidural injections, facet joint injections, medications. Patient is looking for something that can be much more beneficial. She is failed physical therapy in the past however she does continue to do home stretching programs. Patient is not on any anticoagulation therapy. ROS General: no recent weight change, no fever, no sleep disturbances Respiratory: no cough, no shortness of air, no recurring pulmonary infections Cardiovascular/Peripheral Vascular: No chest pain, No palpitations, no edema, no shortness of breath. Gastrointestinal: no incontinence, normal bowel movements reported Genitourinary: no incontinence Musculoskeletal: Back pain, leg pain Psychiatric: normal mood/ affect, Neurological: [denies weakness in extremities], [denies balance issues] numbness and tingling bilateral lower extremities Objective:: Physical Exam General: Alert and oriented x3, no acute distress, pleasant and cooperative, [on room air] Lungs: Resps E/U, Symmetrical chest expansion, Eyes: PERRL Musculoskeletal: Flexion and extension of lumbar spine somewhat guarded secondary to pain, deep tendon reflexes normal, strength in upper and lower extremities [5/5], [abnormal gait noted] Neurological: speech clear, 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 We will then proceed with a spinal cord stimulator trial. I answered the patient's questions. We will follow-up with her after this. Dr. Negrete has reviewed this note and agrees with this plan of care. This note was dictated using voice recognition software and may contain errors or omissions
== END ==
PROVIDERS: PCP Nurse Practitioner Family; Visit Provider Clinical Nurse Specialist Family Health
DX: M51.16 Intervertebral disc disorders with radiculopathy, lumbar region (principal); G57.73 Causalgia of bilateral lower limbs; G62.9 Polyneuropathy, unspecified
CPT/HCPCS: 99213

== ENCOUNTER → 2018-05-29 10:11 | Outpatient (CLI) | payer BC, SELFPAY ==
--- NOTE | 2018-05-29 10:14 | MR_ITS ---
MR head/brain wo/w con HISTORY: Intractable headache frequent falling dizziness and blurred vision ITS.REASON: INTRACTABLE MIGRAINE WITHOUT AURA ORDERING PHYSICIAN: Helen Gonzalez PATIENT AGE: 52 years Comparison: None TECHNIQUE: Standard multiplanar multiecho sequences are performed without and with 24 mL of ProHance. FINDINGS: No midline shift, mass effect, intracranial hemorrhage, or hydrocephalus. The cerebellopontine angle, cerebellum, and brainstem are unremarkable. No evidence of acute infarction. There are some scattered increased T2 signal within the suzie on both sides and centrally which is nonspecific. The pituitary, optic chiasm, and corpus callosum have an unremarkable appearance as does the craniocervical junction. No enhancing lesions are evident. No mastoid effusion or sinus air-fluid level. There is moderate mucosal thickening of left ethmoid air cells posteriorly. There is moderate leftward nasal septal deviation. IMPRESSION: 1. No acute intracranial findings. 2. Nonspecific T2 white matter hyperintensities in the suzie which could be due to ischemic gliotic change.
--- NOTE | 2018-05-29 11:21 | HMH.ITSHM ---
Current Home Medications as stated by this patient Dipti Cosby or representative phlebotomy services. []OXYBUTIN GABAPENTIN ZANAFLEX JANUVIA
== END ==
PROVIDERS: PCP Nurse Practitioner Family; Visit Provider Nurse Practitioner Family
DX: G43.019 Migraine without aura, intractable, without status migrainosus (principal)
CPT/HCPCS: 70553; A9576

== ENCOUNTER → 2018-07-09 16:32 | Outpatient (CLI) | payer BC, SELFPAY ==
[2018-07-09 16:54] LABS: Basophils % 0.5 % (0.1-2.0); Eosinophils # 0.2 K/mm3 (0.0-0.4); Eosinophils % 2.6 % (0.1-12.0); Hematocrit 42.6 % (37.0-47.0); Hemoglobin 13.9 g/dL (12.2-16.2); Lymphocytes # 1.3 K/mm3 (0.7-4.5); Lymphocytes % 23.7 % (10-50); Mean Corpuscular HGB Conc 32.7 g/dL (31.8-35.4); Mean Corpuscular Hemoglobin 30.9 pg (27.0-31.2); Mean Corpuscular Volume 94.6 fl (81-99); Mean Platelet Volume 9.9 fl (7.4-10.4); Monocytes # 0.4 K/mm3 (0.1-1.0); Monocytes % 6.2 % (1.7-9.3); Neutrophils # 3.8 K/mm3 (1.8-7.8); Platelet Count 171 K/mm3 (142-424); Red Cell Distribution Width 13.7 % (11.5-17.5); White Blood Count 5.7 K/mm3 (4.8-10.8)
[2018-07-09 18:15] LABS: Alanine Aminotransferase 46 U/L (12-78); Albumin Level 3.6 gm/dL (3.4-5.0); Albumin/Globulin Ratio 1.1 (1.1-1.8); Alkaline Phosphatase 112 U/L (46-116); Anion Gap 10.3 mEq/L (5-15); Aspartate Amino Transferase 37 U/L (15-37); Bilirubin,Total 1.2 mg/dL (0.2-1.0); Blood Urea Nitrogen 10 mg/dL (7-18); Calcium 8.9 mg/dL (8.5-10.1); Carbon Dioxide 33 mmol/L (21.0-32.0); Chloride 100 mmol/L (98-107); Creatinine,Serum 0.84 mg/dL (0.55-1.02); Estimated Glomerular Filt Rate 72 ml/min (>60); Ferritin 125 ng/mL (8-388); GFR (African American) 87 ML/MIN (>60); Globulin 3.3 gm/dl (1.3-3.2); Glucose 269 mg/dL (74-106); Potassium 4.3 mmoL/L (3.5-5.1); Sodium 139 mmol/L (136-145); Total Protein,Serum 6.9 gm/dL (6.4-8.2)
[2018-07-11 08:48] LABS: Iron 70 ug/dL (27-159); Iron Saturation 23 % (15-55); UIBC 228 ug/dL (131-425)
[2018-07-11 09:13] LABS: Vitamin B12 1129 pg/mL (232-1245)
[2018-07-11 16:33] LABS: Peripheral Smear Review Scanned Result
== END ==
PROVIDERS: Visit Provider Nurse Practitioner Family
DX: M79.81 Nontraumatic hematoma of soft tissue (principal); D69.6 Thrombocytopenia, unspecified; Z86.2 Personal history of diseases of the blood and blood-forming organs and certain disorders involving the immune mechanism
CPT/HCPCS: 36415; 80053; 82607; 82728; 82746; 83540; 83550; 85025

== ENCOUNTER → 2018-10-20 10:07 | Outpatient (CLI) | payer BC, SELFPAY ==
[2018-10-20 10:34] LABS: Basophils % 0.6 % (0.1-2.0); Eosinophils # 0.1 K/mm3 (0.0-0.4); Eosinophils % 1.6 % (0.1-12.0); Hematocrit 45.1 % (37.0-47.0); Hemoglobin 14.3 g/dL (12.2-16.2); Lymphocytes # 1.7 K/mm3 (0.7-4.5); Lymphocytes % 34.5 % (10-50); Mean Corpuscular HGB Conc 31.7 g/dL (31.8-35.4); Mean Corpuscular Hemoglobin 28.7 pg (27.0-31.2); Mean Corpuscular Volume 90.5 fl (81-99); Mean Platelet Volume 9.4 fl (7.4-10.4); Monocytes # 0.5 K/mm3 (0.1-1.0); Monocytes % 9.5 % (1.7-9.3); Neutrophils # 2.7 K/mm3 (1.8-7.8); Neutrophils % 53.9 % (37.0-80.0); Platelet Count 158 K/mm3 (142-424); Red Blood Count 4.98 M/mm3 (4.20-5.40); Red Cell Distribution Width 14.1 % (11.5-17.5)
[2018-10-20 11:30] LABS: Alanine Aminotransferase 43 U/L (12-78); Albumin Level 3.3 gm/dL (3.4-5.0); Albumin/Globulin Ratio 1.1 (1.1-1.8); Alkaline Phosphatase 104 U/L (46-116); Anion Gap 15.7 mEq/L (5-15); Aspartate Amino Transferase 48 U/L (15-37); Blood Urea Nitrogen 9 mg/dL (7-18); Calcium 9.4 mg/dL (8.5-10.1); Carbon Dioxide 28 mmol/L (21.0-32.0); Chloride 103 mmol/L (98-107); Creatinine,Serum 0.92 mg/dL (0.55-1.02); Estimated Glomerular Filt Rate 64 ml/min (>60); GFR (African American) 78 ML/MIN (>60); Globulin 3.1 gm/dl (1.3-3.2); Glucose 157 mg/dL (74-106); Potassium 4.7 mmoL/L (3.5-5.1); Sodium 142 mmol/L (136-145); Total Protein,Serum 6.4 gm/dL (6.4-8.2)
[2018-10-20 11:32] LABS: Hemoglobin A1C 6.5 % (0.0-7.0)
== END ==
PROVIDERS: Visit Provider Internal Medicine Adolescent Medicine
DX: E11.8 Type 2 diabetes mellitus with unspecified complications (principal)
CPT/HCPCS: 36415; 80053; 83036; 85025

== ENCOUNTER → 2019-01-22 09:18 | Outpatient (CLI) | payer BC, SELFPAY | PROVIDERS: Visit Provider Internal Medicine Adolescent Medicine | DX: E11.8 Type 2 diabetes mellitus with unspecified complications (principal) | CPT/HCPCS: 36415; 83036 ==

== ENCOUNTER 2019-02-10 10:28 | Inpatient (IN) ==
[2019-02-10 11:16] LABS: Microscopic, Urine URINE MICROSCOPIC (MICROSCOPIC)
[2019-02-10 11:18] LABS: Appearance,Urine SL CLOUDY (Clear); Bilirubin,Urine Negative (Negative); Blood, Urine 2+ (Negative); Color,Urine YELLOW (Yellow); Glucose,Urine (UA) Negative (Negative); Ketones,Urine Negative (Negative); Leukocyte Esterase,Urine 1+ (Negative); PH,Urine 5.5 (5.0-8.5); Protein,Urine Negative (Negative); Specific Gravity, Urine 1.025 (1.005-1.030)
[2019-02-10 11:26] LABS: Bacteria,Urine 3+ /lpf; WBC,Urine 20-50 #/hpf (0-3)
--- NOTE | 2019-02-10 11:38 | Emergency Department Note ---
ED Disposition Clinical Impression: Acute right flank pain, Calculus of proximal right ureter, Obstructed, uropathy Urinary tract infection Qualifiers: Urinary tract infection type: site unspecified Hematuria presence: without hematuria Qualified Code(s): N39.0 - Urinary tract infection, site not specified Disposition: Admitted As Inpatient Condition on Discharge: Fair Referrals: Victor Manuel Campbell MD [Primary Care Provider] - - Critical Care Critical Care Time: No Attestation: On 02/10/19, the high probability of a clinically significant, sudden or life threatening deterioration of the following system(s) required my full and direct attention, intervention and personal management. The time I documented below is in addition to time spent performing reported procedures but includes the following listed in this critical care notation. Medical Decision Making - Stefan Inquiry Pt receiving controlled substance: No Vital Signs: 02/10/19 10:42 02/10/19 11:29 02/10/19 13:21 Temperature 98.6 F 99.8 F H Temperature Source Oral Oral Pulse Rate [Left Radial] 96 H 85 120 H Respiratory Rate 18 18 Blood Pressure [Right Arm] 158/96 H 168/100 H Blood Pressure Mean [Right Arm] 116 122 Blood Pressure Source [Right Arm] Automatic Cuff 02 Sat by Pulse Oximetry 100 98 99 Oxygen Delivery Method Room Air Room Air - Lab Data Lab results reviewed: Yes: I reviewed the patient's lab results. Lab Results 02/10/19 11:06: Urine Color Yellow, Urine Appearance Sl cloudy, Urine pH 5.5, Ur Specific [place] 1.025, Urine Protein Negative, Urine Glucose (UA) Negative, Urine Ketones Negative, Urine Blood 2+, Urine Nitrate Positive, Urine Bilirubin Negative, Urine Urobilinogen 1.0, Ur Leukocyte Esterase 1+ A, Urine RBC 3-5, Urine WBC 20-50, Ur Squamous Epith Cells 5-10, Urine Bacteria 3+ 02/10/19 11:20: WBC 5.7, RBC 4.76, Hgb 13.7, Hct 42.8, MCV 90.0, MCH 28.7, MCHC 31.9, RDW 13.9, Plt Count 101 L, MPV 10.3, Neut % (Auto) 89.7 H, Lymph % (Auto) 6.7 L, [place] % (Auto) 1.4 L, Eos % (Auto) 2.0, Baso % (Auto) 0.2, Neut # (Auto) 5.2, Lymph # (Auto) 0.4 L, [place] # (Auto) 0.1, Eos # (Auto) 0.1, Baso # (Auto) 0.0, Total Counted 100, Neutrophils % (Manual) 88 H, Band Neutrophils % 1.0, Lymphocytes % (Manual) 8 L, Atypical Lymphs % 1.0, Monocytes % (Manual) 1 L, Basophils % (Manual) 1.0, Platelet Estimate Slight decrease, RBC Morphology Normal 02/10/19 11:20: Sodium 142, Potassium 3.4 L, Chloride 104, Carbon Dioxide 29, Anion Gap 12.4, BUN 11, Creatinine 0.90, Estimated Creat Clear 128, Estimated GFR 66, Est GFR ( Amer) 80, Glucose 145 H, Calcium 8.5, Total Bilirubin 1.6 H, AST 35, ALT 30, Alkaline Phosphatase 96, Total Protein 6.7, Albumin 3.3 L , Globulin 3.4 H, Albumin/Globulin Ratio 1.0 L, Amylase 20 L, Lipase 121 Result diagrams: 02/10/19 11:20 02/10/19 11:20 Orders (Tests/Meds): ED MEDICATIONS Discontinued Medications Generic Name Dose Route Start Last Admin Trade Name Freq PRN Reason Stop Dose Admin Acetaminophen 1,000 mg 02/10/19 14:44 02/10/19 14:48 Tylenol 500mg Tablet PO 02/10/19 14:45 1,000 mg ONCE ONE Administration Ceftriaxone Sodium 1 gm/ 50 mls @ 100 mls/hr 02/10/19 11:44 02/10/19 12:51 Sodium Chloride IV 02/10/19 12:13 100 mls/hr ONCE STA Administration Protocol Sodium Chloride 500 mls @ 999 mls/hr 02/10/19 11:45 02/10/19 14:48 Sod Chlor 0.9% 1000ml Bag IV 02/10/19 12:15 999 mls/hr .Q31M DUSTIN Administration Ketorolac Tromethamine 30 mg 02/10/19 14:43 02/10/19 14:48 Toradol 30mg/Ml Vial IV 02/10/19 14:44 30 mg ONCE ONE Administration Ondansetron HCl 4 mg 02/10/19 14:49 02/10/19 14:49 Zofran 4mg/2ml Vial IV 02/10/19 14:50 4 mg ONCE ONE Administration Tamsulosin HCl 0.4 mg 02/10/19 21:00 Flomax 0.4mg Capsule PO 03/12/19 20:59 HS DUSTIN Tamsulosin HCl 0.4 mg 02/10/19 14:45 02/10/19 14:49 Flomax 0.4mg Capsule PO 02/10/19 14:46 0.4 mg ONCE ONE Administration ORDERS Category Date Time Status Blood Culture Stat Micro 02/10/19 12:30 Received Urine Culture Stat Micro 02/10/19 11:06 Received - CT Data CT Scan: Abdomen, Pelvis Time Received: 14:[address] Reviewed: Yes: I have viewed the radiologist's interpretation Findings Narrative: FINDINGS: LOWER THORAX: No acute finding ABDOMEN & PELVIS: Status post cholecystectomy. Prior gastric surgery/gastric bypass. Mild splenomegaly at 15 cm. No focal liver lesion. The adrenal glands and pancreas have an unremarkable unenhanced appearance. There is a 14 mm obstructing stone in the right ureteropelvic junction with moderate right hydronephrosis. A 6 mm stone is present in the lower pole of the right kidney. There is some gas bubbles noted in the right renal collecting system superiorly and at the right renal pelvic region. This may implicate underlying gas-forming infection. There is mild stranding of the right perinephric fat. No distal ureteral calculi are evident there are pelvic calcifications noted on the right but are felt to be due to phleboliths. The small amount of air is present in the urinary bladder. Non-obstructing calculi are present in the lower pole of the left kidney at 3 and 4 mm. No intestinal obstruction or free air. There is a mild amount of retained colonic feces.. No evidence of appendicitis. Scattered small lymph nodes are present in the mesenteries. There is a recanalized umbilical vein. No acute bony findings. IMPRESSION: 1. The 14 mm obstructing right ureteropelvic junction stone with moderate right hydronephrosis and stranding of the right perinephric fat. 2. Bilateral nephrolithiasis. 3. There is gas present in the urinary bladder and in the right renal collecting system. This could be iatrogenic from recent catheter placement or could be secondary to gas-forming infection. Please correlate clinically. 4. Splenomegaly with recanalized umbilical vein suggesting portal hypertension Dictated by: Zoltan Haji MD 02/10/2019 12:49 Electronically signed by Zoltan Haji MD in [place] 02/10/2019 12:49 - Physician Consults Physician Consulted: Dr. Horn Time: 14:30 Reason -: Urology Eval/Care Comment/Response: D/W Dr. Horn, the urologist regarding the patient and planned to get the patient admitted to the hospitalist service to get stents placed tomorrow morning. He wants the patient to be not eating anything by mouth from midnight tonight. Additional Consult: Dr. Merino Time: 14:45 Reason -: Admission Comment/Response: Discussed with Dr. Merino, the primary care provider, regarding the patient and planned to get the patient admitted to the floor. - Reevaluation(s) Time: 14:00 Reevaluation #1: Patient has been feeling better after the IV antibiotics and IV fluids. She denies having any acute pain right now. Discussed the lab findings and the CT scan finding with the patient. Plan to discuss the case with the urologist regarding the disposition and the further management plan. General Adult HPI - General Chief complaint: PAIN Stated complaint: right side and back pain Time Seen by Provider: 02/10/19 11:38 Mode of Arrival: Wheelchair Limitations: No Limitations Description of Symptoms (Recalled from ER Triage Doc. by RN): PT C/O ABD, BILAT FLANK PAIN, PAINFUL URINATION, N/V SINCE 0530/0600 THIS MORNING. PT BELIEVES SHE HAS KIDNEY STONES, REPORTS A HX OF - History of Present Illness HPI narrative: 53-year-old female presents with chief complaint of having pain in both sides of the flank area since about 530 this morning. He states it was hurting more on the right than the left. Complains of pain radiating from the right flank to the right groin area. Complains of having cold chills and feeling like feverish. Has history of diabetes. Also has history of kidney stones in the past. She states she states she feels like she is having another kidney stone problem. Denies having any trauma or injury. Onset (ago): hour(s) - Related Data Home Medications Medication Instructions Recorded Confirmed citalopram 10 mg tablet 60 mg PO QDAY 03/26/17 10/27/17 dapagliflozin 5 mg tablet 5 mg PO QAM 03/26/17 10/27/17 hydrocodone 7.5 mg-acetaminophen 1 tab PO Q8HP PRN 03/26/17 10/27/17 325 mg tablet metformin 1,000 mg tablet 1,000 mg PO BID 03/26/17 10/27/17 multivitamin,[id number] 1 tab PO QDAY 03/26/17 10/27/17 tablet Fluticasone Propionate [Flonase 2 spr NS DAILY 04/23/17 10/27/17 50mcg nasal spray 16gm] Levocetirizine Dihydrochloride 5 mg PO DAILY 04/23/17 10/27/17 [Xyzal] Sitagliptin Phosphate [Januvia] 100 mg PO HS 04/23/17 10/27/17 ondansetron HCl 4 mg tablet 4 mg PO ONCE PRN tab 06/11/17 10/27/17 oxybutynin chloride 5 mg tablet 5 mg PO TID 06/11/17 10/27/17 gabapentin 300 mg capsule 300 mg PO TID 07/16/17 10/27/17 ropinirole 1 mg tablet 1 mg PO TID 07/16/17 10/27/17 tizanidine 2 mg capsule 2 mg PO TID PRN 07/16/17 10/27/17 Previous Rx's Medication Instructions Recorded Benzonatate [Benzonatate 200mg Cap] 200 mg PO HS PRN #14 cap 01/23/18 Baljeet [Baljeet, Sosa] 1 each MISCELLANEOUS DIRECTED 09/01/18 #1 each Allergies Allergy/AdvReac Type Severity Reaction Status Date / Time levofloxacin [From Levaquin] Allergy hallucinate Verified 10/24/17 10:16 s Penicillins Allergy itching Verified 10/24/17 10:16 [facility] History - Hepatitis A Screen Drug use history?: No High risk sexual behaviors?: No History of sexually transmitted infection?: No Currently employed?: No Childcare worker?: No Do you have indoor plumbing?: Yes Do you have electricity?: Yes Attestation statement:: This patient has been screened for Hepatitis A risk factors. Medical History: Denies:: Diabetes Mellitus Type 1, Diabetes Mellitus Type 2, Internal Pacemaker, Lung Disease, Seizures Other Medical History: Reports: Anemia, Arthritis, Fibromyalgia, Hoarseness, Oth er (neuropathy, allergies) Laterality Cases: Bilateral: Other Other Surgeries: Yes: Bariatric Surgery, Colonoscopy, , Tubal Ligation, Other (gastric bypass,gallbladder). No: Pacemaker Amputation: No Fractures: No - Social History Smoking Status: Never smoker Alcohol Intake: never Alcohol Intake Frequency:: holidays/special occasions only Substance Use Type: denies use Occupational Status: employed, other Housing: house Family Hx:: Diabetes, Coronary Artery Disease, Hypertension, Stroke, Cancer Comment: Arthritis, COPD ROS Obtained: Yes All systems reviewed & no additional complaints Physical Exam - General General appearance: alert, in no apparent distress, obese, other (Patient is complaining of feeling cold chills and shaking trying to have more blankets.) - Head Head exam: atraumatic, normocephalic, normal inspection - Eye Eye exam: Present: normal appearance, PERRL, EOMI - ENT ENT exam: Present: normal exam, normal oropharynx, mucous membranes moist, normal external ear exam - Neck Neck exam: Present: normal inspection, full ROM, trachea midline - Chest Chest inspection: Present: normal inspection, symmetric chest wall rise. Absent: tenderness - Respiratory Respiratory exam: Present: normal lung sounds bilaterally. Absent: respiratory distress - Cardiovascular Cardiovascular exam: Present: regular rate, normal rhythm. Absent: JVD - Abdominal Exam Abdominal exam: Present: soft, normal bowel sounds, other (No tenderness on the costovertebral angle.). Absent: distention, tenderness, guarding - Extremities Exam Extremities exam: Present: normal inspection, full ROM, normal capillary refill - Back Exam Back exam: Present: normal inspection. Absent: tenderness, CVA tenderness (R), CVA tenderness (L) - Neurological Exam Neurological exam: Present: alert, oriented X3, CN II-XII intact - Psychiatric Psychiatric exam: Present: normal affect, normal mood - Skin Skin exam: Present: warm, dry, intact, normal color
[2019-02-10 11:40] LABS: Basophils % 0.2 % (0.1-2.0); Eosinophils # 0.1 K/mm3 (0.0-0.4); Hematocrit 42.8 % (37.0-47.0); Hemoglobin 13.7 g/dL (12.2-16.2); Lymphocytes # 0.4 K/mm3 (0.7-4.5); Lymphocytes % 6.7 % (10-50); Mean Corpuscular HGB Conc 31.9 g/dL (31.8-35.4); Mean Platelet Volume 10.3 fl (7.4-10.4); Monocytes # 0.1 K/mm3 (0.1-1.0); Monocytes % 1.4 % (1.7-9.3); Neutrophils # 5.2 K/mm3 (1.8-7.8); Neutrophils % 89.7 % (37.0-80.0); Platelet Count 101 K/mm3 (142-424); Red Blood Count 4.76 M/mm3 (4.20-5.40); Red Cell Distribution Width 13.9 % (11.5-17.5); White Blood Count 5.7 K/mm3 (4.8-10.8)
[2019-02-10 11:50] LABS: Albumin Level 3.3 gm/dL (3.4-5.0); Anion Gap 12.4 mEq/L (5-15); Bilirubin,Total 1.6 mg/dL (0.2-1.0); Calcium 8.5 mg/dL (8.5-10.1); Globulin 3.4 gm/dl (1.3-3.2); Total Protein,Serum 6.7 gm/dL (6.4-8.2)
[2019-02-10 11:56] LABS: Lymphocytes % 8 % (10-50); Monocytes % 1 % (2-9); Neutrophils % 88 % (42-76); Total Cells Counted 100
[2019-02-10 11:57] LABS: RBC Morphology Normal
[2019-02-11 06:50] LABS: Basophils % 0.2 % (0.1-2.0); Eosinophils # 0.1 K/mm3 (0.0-0.4)
[2019-02-11 06:56] LABS: Eosinophils % 0.8 % (0.1-12.0); Hematocrit 38.3 % (37.0-47.0); Lymphocytes # 1.5 K/mm3 (0.7-4.5); Mean Corpuscular HGB Conc 31.5 g/dL (31.8-35.4); Mean Corpuscular Volume 91.8 fl (81-99); Mean Platelet Volume 10.6 fl (7.4-10.4); Monocytes % 6.2 % (1.7-9.3); Neutrophils # 13.7 K/mm3 (1.8-7.8); Neutrophils % 83.9 % (37.0-80.0); Platelet Count 105 K/mm3 (142-424); Red Blood Count 4.17 M/mm3 (4.20-5.40); Red Cell Distribution Width 14.5 % (11.5-17.5); White Blood Count 16.3 K/mm3 (4.8-10.8)
[2019-02-11 07:01] LABS: Anion Gap 13.1 mEq/L (5-15); Calcium 7.9 mg/dL (8.5-10.1)
[2019-02-11 07:06] LABS: Hemoglobin 12.1 g/dL (12.2-16.2)
--- NOTE | 2019-02-11 07:40 | Pharmacy Consult Notes ---
[facility] Pharmacy VTE Monitoring - Patient Demographics Admission date: 02/10/19 Report Date: 02/11/19 Time: 07:40 Allergies/Adverse Reactions: Patient Allergies levofloxacin [From Levaquin] Allergy (Verified 10/24/17 10:16) hallucinates Penicillins Allergy (Verified 10/24/17 10:16) itching Height: 1.68 m Weight: 112.292 kg Patient Problems: Current Active Problems Acute right flank pain (Acute) Calculus of proximal right ureter (Acute) Obstructed, uropathy (Acute) Urinary tract infection (Acute) - VTE Risk Labs: VTE Related Lab Results Hgb 12.1 g/dL (12.2-16.2) L D 02/11/19 06:32 Hct 38.3 % (37.0-47.0) 02/11/19 06:32 Plt Count 105 K/mm3 (142-424) L 02/11/19 06:32 BUN 20 mg/dL (7-18) H D 02/11/19 06:32 Creatinine 1.73 mg/dL (0.55-1.02) H D 02/11/19 06:32 Estimated Creat Clear 68 mL/min (50-200) 02/11/19 06:32 Was VTE Risk Assessment Performed: Yes VTE Score: 3 VTE Risk Level: Low Risk - Prophylaxis VTE Prophylaxis Ordered?: Yes Types of VTE Prophylaxis: TEDS Knee High Location of Applied Device: Bilateral Lower Extremeties - VTE Diagnosis Confirmed Treatment or plan recommended: Continue Current Treatment
[2019-02-11 07:41] LABS: Eosinophils % 1 % (0-3); Lymphocytes % 9 % (10-50); Monocytes % 4 % (2-9); Neutrophils % 86 % (42-76); Total Cells Counted 100
[2019-02-11 07:42] LABS: RBC Morphology Normal
--- NOTE | 2019-02-11 09:09 | History & Physical Report ---
*Admission Date: 02/10/19 *Chief complaint: Flank pain and fever *History of present illness: Ms. Cosby is a 53-year-old female with history of gastric bypass surgery, diabetes, frequent UTIs over the past 6 to 12 months who presented to the ER with fever and flank pain. Denied any emesis but complained of some abdominal pain and nausea. Symptoms had been worsening after acute occurrence on the morning of presentation to the ER. Initial work-up in the ER showed normal kidney function and normal white count. Abdominal imaging with CT showed obstructing 14 mm nephrolithiasis in the right UPJ and some nonobstructing stones on the left. Urology was consulted for assistance with management. Recommended admission and plan for stent placement. Patient was admitted to medicine for further management. Antibiotics were started. IV fluids were started. Pain control initiated as well. On assessment this morning, she states she feels much better after IV fluids. Denies any nausea or vomiting overnight. Developed fever overnight. Lactate has continued to climb and she has had very minimal urine output. [facility] History I have reviewed the patient's past medical history: Yes Medical History: Reports:: Diabetes Mellitus Type 2 Denies:: Cancer, Diabetes Mellitus Type 1, Internal Pacemaker, Lung Disease, MRSA, Seizures *Have you ever received a pneumonia vaccine?: No *Have you received a flu vaccine this season?: Yes Other Medical History: Reports: Anemia, Arthritis, Fibromyalgia, Hoarseness, Other (neuropathy, allergies) Laterality Cases: Bilateral: Other Other Surgeries: Yes: Bariatric Surgery, Cholecystectomy, Colonoscopy, C- section, Tubal Ligation, Other (gastric bypass,gallbladder). No: Pacemaker Amputation: No Fractures: No - *Social History Educational Level: Completed High School Smoking Status: Never smoker Alcohol Intake: never Alcohol Intake Frequency:: holidays/special occasions only Substance Use Type: denies use *Occupational Status:: employed Housing: house Household Members: spouse *Travel in the last 8 weeks: None Family Hx:: Diabetes, Coronary Artery Disease, Hypertension, Stroke, Cancer Review of Systems - Review of Systems Review of systems:: pertinent systems reviewed and negative unless documented below Meds Home Medications Medication Instructions Recorded Confirmed Type hydrocodone 7.5 mg-acetaminophen 1 tab PO Q8HP PRN 03/26/17 02/10/19 History 325 mg tablet Fluticasone Propionate [Flonase 2 spr NOSTRIL-B DAILY 04/23/17 02/11/19 History 50mcg nasal spray 16gm] ondansetron HCl 4 mg tablet 4 mg PO Q8HP PRN tab 06/11/17 02/11/19 History oxybutynin chloride 5 mg tablet 5 mg PO QID 06/11/17 02/10/19 History Duloxetine HCl 60 mg PO DAILY 02/10/19 02/10/19 History Ergocalciferol (Vitamin D2) 50,000 units PO WEEKLY 02/10/19 02/10/19 History [Drisdol 50,000 units (1.25mg) capsule] Furosemide [Furosemide 40MG tAB] 40 mg PO DAILY 02/10/19 02/10/19 History Ibuprofen/Famotidine [Duexis 1 tab PO TIDWM 02/10/19 02/11/19 History 800-26.6 mg Tablet] Semaglutide [Ozempic] 0.5 mg SQ WEEKLY 02/10/19 02/10/19 History Albuterol Sulfate [Proair Hfa 2 puffs IH TIDP PRN 02/11/19 02/11/19 History 90mcg/puff Inh] Cyanocobalamin (Vitamin B-12) 1,000 mcg PO DAILY 02/11/19 02/11/19 History [Vitamin B-12] Gabapentin 600 mg PO TID 02/11/19 02/11/19 History Loratadine [Claritin 10mg Tablet] 10 mg PO DAILY 02/11/19 02/11/19 History Metformin HCl 500 mg PO BID 02/11/19 02/11/19 History Ropinirole HCl 1 mg PO HS 02/11/19 02/11/19 History Tizanidine HCl 4 mg PO BIDP PRN 02/11/19 02/11/19 History Allergies Allergy/AdvReac Type Severity Reaction Status Date / Time levofloxacin [From Levaquin] Allergy hallucinate Verified 10/24/17 10:16 s Penicillins Allergy itching Verified 10/24/17 10:16 Exam Vital signs and Labs for Last 24 Hours: Temp Pulse Resp BP Pulse Ox 98.2 F 91 H 18 97/52 L 100 02/11/19 08:00 02/11/19 08:00 02/11/19 08:00 02/11/19 08:00 02/11/19 08:00 Laboratory Results - last 24 hr 02/10/19 11:06: Urine Color Yellow, Urine Appearance Sl cloudy, Urine pH 5.5, Ur Specific [place] 1.025, Urine Protein Negative, Urine Glucose (UA) Negative, Urine Ketones Negative, Urine Blood 2+, Urine Nitrate Positive, Urine Bilirubin Negative, Urine Urobilinogen 1.0, Ur Leukocyte Esterase 1+ A, Urine RBC 3-5, Urine WBC 20-50, Ur Squamous Epith Cells 5-10, Urine Bacteria 3+ 02/10/19 11:20: WBC 5.7, RBC 4.76, Hgb 13.7, Hct 42.8, MCV 90.0, MCH 28.7, MCHC 31.9, RDW 13.9, Plt Count 101 L, MPV 10.3, Neut % (Auto) 89.7 H, Lymph % (Auto) 6.7 L, [place] % (Auto) 1.4 L, Eos % (Auto) 2.0, Baso % (Auto) 0.2, Neut # (Auto) 5.2, Lymph # (Auto) 0.4 L, [place] # (Auto) 0.1, Eos # (Auto) 0.1, Baso # (Auto) 0.0, Total Counted 100, Neutrophils % (Manual) 88 H, Band Neutrophils % 1.0, Lymphocytes % (Manual) 8 L, Atypical Lymphs % 1.0, Monocytes % (Manual) 1 L, Basophils % (Manual) 1.0, Platelet Estimate Slight decrease, RBC Morphology Normal 02/10/19 11:20: Sodium 142, Potassium 3.4 L, Chloride 104, Carbon Dioxide 29, Anion Gap 12.4, BUN 11, Creatinine 0.90, Estimated Creat Clear 128, Estimated GFR 66, Est GFR ( Amer) 80, Glucose 145 H, Calcium 8.5, Total Bilirubin 1.6 H, AST 35, ALT 30, Alkaline Phosphatase 96, Total Protein 6.7, Albumin 3.3 L , Globulin 3.4 H, Albumin/Globulin Ratio 1.0 L, Amylase 20 L, Lipase 121 02/10/19 16:11: Lactate 2.1 H 02/10/19 17:35: POC Glucose 103 02/10/19 18:29: Lactate 3.2 H 02/10/19 20:45: POC Glucose 206 H 02/10/19 20:49: Lactate 4.0 H 02/11/19 05:54: POC Glucose 136 H 02/11/19 06:32: WBC 16.3 H D, RBC 4.17 L, Hgb 12.1 L D, Hct 38.3, MCV 91.8, MCH 28.9, MCHC 31.5 L, RDW 14.5, Plt Count 105 L, MPV 10.6 H, Neut % (Auto) 83.9 H, Lymph % (Auto) 9.0 L, [place] % (Auto) 6.2, Eos % (Auto) 0.8, Baso % (Auto) 0.2, Neut # (Auto) 13.7 H, Lymph # (Auto) 1.5, [place] # (Auto) 1.0, Eos # (Auto) 0.1, Baso # (Auto) 0.0, Total Counted 100, Neutrophils % (Manual) 86 H, Lymphocytes % (Manual) 9 L, Monocytes % (Manual) 4, Eosinophils % (Manual) 1, Platelet Est imate Normal, RBC Morphology Normal 02/11/19 06:32: Sodium 141, Potassium 4.1 D, Chloride 106, Carbon Dioxide 26, Anion Gap 13.1, BUN 20 H D, Creatinine 1.73 H D, Estimated Creat Clear 68, Estimated GFR 31 L, Est GFR ( Amer) 38 L D, Glucose 119 H, Calcium 7.9 L I & O for Last 24 hours: Intake & Output 02/08/19 02/09/19 02/10/19 02/11/19 23:59 23:59 23:59 23:59 Intake Total 1000 / 1000 799 / 799 Balance 1000 / 1000 799 / 799 Weight 110.365 kg 112.292 kg Microbiology Reports for the Last 24 Hours: Microbiology 02/10/19 12:30 Blood Blood Culture - Preliminary - Constitutional no acute distress, morbidly obese - *Routine HEENT Exam Head: Present: normocephalic Eye: Present: EOMI, PERRL ENT: Present: mucous membranes moist - *Routine Neck Exam Present: supple. Absent: lymphadenopathy - *Routine Respiratory Exam Present: CTA bilaterally - *Routine Cardiovascular Exam Present: RRR - *Routine Abdominal Exam Present: soft, normoactive bowel sounds, tenderness (Diffuse tenderness) - *Routine Extremities Exam Present: edema (Baseline with chronic venous stasis changes in bilateral shins). Absent: cyanosis, clubbing - *Routine Skin Exam Present: warm. Absent: rash - *Routine Neurological Exam Present: alert, oriented X3 Assessment and Plan (1) Morbid obesity with BMI of 40.0-44.9, adult Current visit: Yes Status: Acute Category: Medical Code(s): E66.01 - Morbid (severe) obesity due to excess calories; Z68.41 - Body mass index (BMI) 40.0-44.9, adult Complicates all aspects of her care (2) Acute right flank pain Current visit: Yes Status: Acute Category: Medical Code(s): R10.9 - Unspecified abdominal pain (3) Calculus of proximal right ureter Current visit: Yes Status: Acute Category: Medical Code(s): N20.1 - Calculus of ureter (4) Obstructed, uropathy Current visit: Yes Status: Acute Category: Medical Code(s): N13.9 - Obstructive and reflux uropathy, unspecified Urology consulted. Appreciate recommendations. Anticipate stent placement today. Worsening kidney function with doubling of creatinine in the past 24 hours. Suspect due to obstructive uropathy as well as insufficient fluid resuscitation. (5) Urinary tract infection Current visit: Yes Status: Acute Qualifiers: Urinary tract infection type: site unspecified Hematuria presence: without hematuria Qualified Code(s): N39.0 - Urinary tract infection, site not specif ied Category: Medical Code(s): N39.0 - Urinary tract infection, site not specified Continue antibiotics as ordered. Anticipate improvement with removal of obstruction. (6) Neuropathy Current visit: No Status: Chronic Category: Medical Code(s): G62.9 - Polyneuropathy, unspecified Continue home gabapentin. (7) Type 2 diabetes mellitus Current visit: Yes Status: Acute Qualifiers: Diabetes mellitus complication detail: with polyneuropathy Category: Medical Code(s): E11.9 - Type 2 diabetes mellitus without complications Hold oral medications and injectables from home. Patient getting fingerstick glucose AC and at bedtime. Sliding scale insulin as needed per protocol (8) E coli bacteremia Current visit: Yes Status: Acute Category: Medical Code(s): R78.81 - Bacteremia Suspect secondary to pyelonephritis. Awaiting sensitivities. Continue broad- spectrum antibiotics. Will need 14 days antibiotics (9) Acute kidney injury Current visit: Yes Status: Acute Category: Medical Code(s): N17.9 - Acute kidney failure, unspecified Mixed with both prerenal and obstructive pathologies. Monitor for improvement with placement of stents and increased volume resuscitation - Assessment and plan all Dx Assessment and Plan for all problems:: 53-year-old female with complex past medical history who presented with obstructing uropathy and gram-negative penny bacteremia. Continue broad-spectrum antibiotics. Will monitor for improvement with stent placement. Appreciate urology's assistance in care, recommendations pending. Patient requires continued inpatient management. Diabetic diet after surgical procedure. Will place [place] today to monitor strict ins and outs. Anticipate discharge pending bacteremia sensitivities, de-escalation to oral antibiotic regimen, and i mprovement in kidney function.
--- NOTE | 2019-02-11 09:23 | Consult Report ---
*Admission Date: 02/10/19 *Reason for consult:: Right ureteral stone with obstruction *History of present illness: Patient is a 53-year-old white female presented to the emergency room yesterday with right-sided flank pain. CT scan shows a 14 mm obstructing stone at the right UPJ. She was admitted for pain control and hydration. Her white count on presentation was 5.7 and creatinine was 0.9. This morning her creatinine has increased to 1.7 and her white count is increased to 16.3. She is on ceftriaxo ne. She denies any significant flank pain since admission. She is afebrile. She has a history of stones in the past which she is been able to pass spontaneously. [facility] History Medical History: Denies:: Cancer, Diabetes Mellitus Type 1, Diabetes Mellitus Type 2, Internal Pacemaker, Lung Disease, MRSA, Seizures *Have you ever received a pneumonia vaccine?: No *Have you received a flu vaccine this season?: Yes Other Medical History: Reports: Anemia, Arthritis, Fibromyalgia, Hoarseness, Other (neuropathy, allergies) Laterality Cases: Bilateral: Other Other Surgeries: Yes: Bariatric Surgery, Cholecystectomy, Colonoscopy, C-sectio n, Tubal Ligation, Other (gastric bypass,gallbladder). No: Pacemaker Amputation: No Fractures: No - *Social History Educational Level: Completed High School Smoking Status: Never smoker Alcohol Intake: never Alcohol Intake Frequency:: holidays/special occasions only Substance Use Type: denies use *Occupational Status:: employed Housing: house Household Members: spouse *Travel in the last 8 weeks: None Family Hx:: Diabetes, Coronary Artery Disease, Hypertension, Stroke, Cancer Review of Systems - Constitutional Reports chills - *Musculoskeletal Reports back pain Meds Home Medications Medication Instructions Recorded Confirmed Type citalopram 10 mg tablet 60 mg PO QDAY 03/26/17 02/10/19 History hydrocodone 7.5 mg-acetaminophen 1 tab PO Q8HP PRN 03/26/17 02/10/19 History 325 mg tablet metformin 1,000 mg tablet 500 mg PO BID 03/26/17 02/10/19 History multivitamin,aj-mfag-azndlcem 1 tab PO QDAY 03/26/17 02/10/19 History tablet Fluticasone Propionate [Flonase 2 spr NS DAILY 04/23/17 02/10/19 History 50mcg nasal spray 16gm] ondansetron HCl 4 mg tablet 4 mg PO ONCE PRN tab 06/11/17 02/10/19 History oxybutynin chloride 5 mg tablet 5 mg PO QID 06/11/17 02/10/19 History gabapentin 300 mg capsule 600 mg PO QID 07/16/17 02/10/19 History ropinirole 1 mg tablet 1 mg PO TID 07/16/17 02/10/19 History tizanidine 2 mg capsule 2 mg PO TID PRN 07/16/17 02/10/19 History Duloxetine HCl 60 mg PO DAILY 02/10/19 02/10/19 History Ergocalciferol (Vitamin D2) 50,000 units PO WEEKLY 02/10/19 02/10/19 History [Drisdol 50,000 units (1.25mg) capsule] Furosemide [Furosemide 40MG tAB] 40 mg PO DAILY 02/10/19 02/10/19 History Ibuprofen/Famotidine [Duexis 1 tab PO TID 02/10/19 02/10/19 History 800-26.6 mg Tablet] Semaglutide [Ozempic] 0.5 mg SQ WEEKLY 02/10/19 02/10/19 History Allergies Allergy/AdvReac Type Severity Reaction Status Date / Time [facility] Allergy hallucinate Verified 10/24/17 10:16 s Penicillins Allergy itching Verified 10/24/17 10:16 Exam Vital signs and Labs for Last 24 Hours: Temp Pulse Resp BP Pulse Ox 98.2 F 91 H 18 97/52 L 100 02/11/19 08:00 02/11/19 08:00 02/11/19 08:00 02/11/19 08:00 02/11/19 08:00 Laboratory Results - last 24 hr 02/10/19 11:06: Urine Color Yellow, Urine Appearance Sl cloudy, Urine pH 5.5, Ur Specific [place] 1.025, Urine Protein Negative, Urine Glucose (UA) Negative, Urine Ketones Negative, Urine Blood 2+, Urine Nitrate Positive, Urine Bilirubin Negative, Urine Urobilinogen 1.0, Ur Leukocyte Esterase 1+ A, Urine RBC 3-5, Urine WBC 20-50, Ur Squamous Epith Cells 5-10, Urine Bacteria 3+ 02/10/19 11:20: WBC 5.7, RBC 4.76, Hgb 13.7, Hct 42.8, MCV 90.0, MCH 28.7, MCHC 31.9, RDW 13.9, Plt Count 101 L, MPV 10.3, Neut % (Auto) 89.7 H, Lymph % (Auto) 6.7 L, [place] % (Auto) 1.4 L, Eos % (Auto) 2.0, Baso % (Auto) 0.2, Neut # (Auto) 5.2, Lymph # (Auto) 0.4 L, [place] # (Auto) 0.1, Eos # (Auto) 0.1, Baso # (Auto) 0.0, Total Counted 100, Neutrophils % (Manual) 88 H, Band Neutrophils % 1.0, Lymphocytes % (Manual) 8 L, Atypical Lymphs % 1.0, Monocytes % (Manual) 1 L, Basophils % (Manual) 1.0, Platelet Estimate Slight decrease, RBC Morphology Norm al 02/10/19 11:20: Sodium 142, Potassium 3.4 L, Chloride 104, Carbon Dioxide 29, Anion Gap 12.4, BUN 11, Creatinine 0.90, Estimated Creat Clear 128, Estimated GFR 66, Est GFR ( Amer) 80, Glucose 145 H, Calcium 8.5, Total Bilirubin 1.6 H, AST 35, ALT 30, Alkaline Phosphatase 96, Total Protein 6.7, Albumin 3.3 L , Globulin 3.4 H, Albumin/Globulin Ratio 1.0 L, Amylase 20 L, Lipase 121 02/10/19 16:11: Lactate 2.1 H 02/10/19 17:35: POC Glucose 103 02/10/19 18:29: Lactate 3.2 H 02/10/19 20:45: POC Glucose 206 H 02/10/19 20:49: Lactate 4.0 H 02/11/19 05:54: POC Glucose 136 H 02/11/19 06:32: WBC 16.3 H D, RBC 4.17 L, Hgb 12.1 L D, Hct 38.3, MCV 91.8, MCH 28.9, MCHC 31.5 L, RDW 14.5, Plt Count 105 L, MPV 10.6 H, Neut % (Auto) 83.9 H, Lymph % (Auto) 9.0 L, [place] % (Auto) 6.2, Eos % (Auto) 0.8, Baso % (Auto) 0.2, Neut # (Auto) 13.7 H, Lymph # (Auto) 1.5, [place] # (Auto) 1.0, Eos # (Auto) 0.1, Baso # (Auto) 0.0, Total Counted 100, Neutrophils % (Manual) 86 H, Lymphocytes % (Manual) 9 L, Monocytes % (Manual) 4, Eosinophils % (Manual) 1, Platelet Estimate Normal, RBC Morphology Normal 02/11/19 06:32: Sodium 141, Potassium 4.1 D, Chloride 106, Carbon Dioxide 26, Anion Gap 13.1, BUN 20 H D, Creatinine 1.73 H D, Estimated Creat Clear 68, Estimated GFR 31 L, Est GFR ( Amer) 38 L D, Glucose 119 H, Calcium 7.9 L I & O for Last 24 hours: Intake & Output 02/08/19 02/09/19 02/10/19 02/11/19 23:59 23:59 23:59 23:59 Intake Total 1000 / 1000 799 / 799 Balance 1000 / 1000 799 / 799 Weight 110.365 kg 112.292 kg Microbiology Reports for the Last 24 Hours: Microbiology 02/10/19 12:30 Blood Blood Culture - Preliminary Narrative: Well-nourished white female in no apparent distress Pupils equal round reactive to light Neck symmetric Head is normocephalic Normal respiratory effort Abdomen normal to visual inspection Alert and oriented x3 Internal Medicine - CN: Reslt - Labs CBC & Chem 7: 02/11/19 06:32 02/11/19 06:32 Labs: Short CBC 02/10/19 02/11/19 Range/Units 11:20 06:32 WBC 5.7 16.3 H D (4.8-10.8) K/mm3 Hgb 13.7 12.1 L D (12.2-16.2) g/dL Hct 42.8 38.3 (37.0-47.0) % Plt Count 101 L 105 L (142-424) K/mm3 BMP 02/10/19 02/11/19 11:20 06:32 Sodium 142 141 Potassium 3.4 L 4.1 D Chloride 104 106 Carbon Dioxide 29 26 BUN 11 20 H D Creatinine 0.90 1.73 H D Glucose 145 H 119 H Calcium 8.5 7.9 L Liver Function 02/10/19 Range/Units 11:20 Total Bilirubin 1.6 H (0.2-1.0) mg/dL AST 35 (15-37) U/L ALT 30 (12-78) U/L Alkaline Phosphatase 96 (46-116) U/L Albumin 3.3 L (3.4-5.0) gm/dL Urine 02/10/19 Range/Units 11:06 Urine Color Yellow (Yellow) Urine Appearance Sl cloudy (Clear) Urine pH 5.5 (5.0-8.5) Ur Specific [place] 1.025 (1.005-1.030) Urine Protein Negative (Negative) Urine Glucose (UA) Negative (Negative) Assessment and Plan (1) Calculus of proximal right ureter Current visit: Yes Status: Acute Category: Medical Code(s): N20.1 - Calculus of ureter Patient with 14 mm right UPJ stone. Her white count and creatinine have been elevated overnight. We have discussed treatment measures and I recommended proceeding with cystoscopy and a right stent placement to unobstruct the kidney. We will attempt to manipulate the stone back into the kidney. We discussed that ESWL will be necessary in the future to eradicate the stone. He is n.p.o. and on antibiotics. Is scheduled for 130 this afternoon procedure.
--- NOTE | 2019-02-11 14:15 | Progress Note ---
[facility] Anesthesia Checklist - Patient Identification Patient Identification: Arm Band, Verbal (Name & ) - Structural Data Admitted From: Home Planned Operative Procedure/s: Cystoscopy with right ureter stent placement Consent for Planned Operative Procedure(s) Verified: Yes Verified Documents: Surgical Consent, History and Physical - NPO Status Verified Time NPO: 00:00 - Chart Verification Results Verified: CBC, BMP, UA - Additional verifications Anesthesia Reactions: No - Airway Assessment C-Spine Mobility Assessed: Yes TMJ Mobility Assessed: Yes Dentition: Edentulous - Neurological Assessment Level of Consciousness: Awake, Alert, Appropriate, Follows Commands Hx Seizures: No Numbness or tingling in extremities: Yes (diabetic neuropathy (hands/feet)) - Anesthesia Plan Anesthesia Risk discussed: Yes Anesthesia Plan: Verified ASA Class: III Anesthesia Type: General [facility] History I have reviewed the patient's past medical history: Yes Medical History: Reports:: Diabetes Mellitus Type 2, Gastroesophageal Reflux Disease(GERD), Kidney Stones Denies:: Cancer, Diabetes Mellitus Type 1, Internal Pacemaker, Lung Disease, MRSA, Seizures *Have you ever received a pneumonia vaccine?: No *Have you received a flu vaccine this season?: Yes Other Medical History: Reports: Anemia, Arthritis, Fibromyalgia, Hoarseness, Other (neuropathy, allergies) Comment:: morbid obesity Anesthesia experience/problems:: no complications Laterality Cases: Bilateral: Other Other Surgeries: Yes: Bariatric Surgery, Cholecystectomy, Colonoscopy, C- section, Tubal Ligation, Other (gastric bypass,gallbladder). No: Pacemaker Amputation: No Fractures: No - *Social History Educational Level: Completed High School Smoking Status: Never smoker Alcohol Intake: never Alcohol Intake Frequency:: holidays/special occasions only Substance Use Type: denies use *Occupational Status:: employed Housing: house Household Members: spouse *Travel in the last 8 weeks: None Family Hx:: Diabetes, Coronary Artery Disease, Hypertension, Stroke, Cancer
--- NOTE | 2019-02-11 15:29 | Progress Note ---
[facility] Anesthesia Record Part II Discharge Time: 15:53 Destination: Medical Surgical Department PACU nurse assessment reviewed?: Yes Patient Condition:: Good Anesthesia Complications:: None Swallowing reflex intact?: Yes Cyanosis?: No Blood Pressure: 142/72 Pulse Rate: 115 Temperature: 98.2 F Mental Status: Alert & Oriented Pain level:: 2 Nausea and/or vomitting:: None Intake, IV Amount: 500
--- NOTE | 2019-02-11 15:29 | Progress Note ---
[facility] Anesthesia Record Part I Intake, IV Amount: 500 Estimated blood loss (mL): 10 Urine output (mL): 0 Blood Products used (#): none Blood Pressure: 142/72 SaO2: 97 Pulse Rate: 115 Respiratory Rate: 20 Temperature: 98.2 F Patient is:: Awake, Stable Stable to PACU at:: 15:23
--- NOTE | 2019-02-11 16:32 | Operative Note ---
Date of procedure: 02/11/19 Pre-op Diagnosis:: 14 mm right UPJ stone Post-op Diagnosis:: Same Procedure performed:: Cystoscopy with right stone manipulation and right ureteral stent Surgeon:: Peter Chaidez MD TOUCH UP PAINTER HAND:: Flako Garrett Anesthesia: GETGinna Estimated blood loss (mL): 0 Clinical Note:: 53-year-old white female admitted last evening for right flank pain secondary to a 14 mm obstructing right proximal ureteral stone. Operative findings:: Large stone at the right UPJ. It was able to be manipulated back into the right kidney and right stent was placed without difficulty. Urine culture was sent off. Operative note:: Patient taken to the operating room after informed consent was obtained. Was placed on the operating table in the supine position and general anesthesia administered. She was on preoperative IV Rocephin. She was placed into the dorsal lithotomy position and prepped and draped in the standard surgical fashion. A 22 Azerbaijani scope passed into the urethra and into the bladder. The bladder was within normal limits. There was reflux of orange urine from the right ureteral orifice. A 5 Azerbaijani ureteral catheter passed in the right ureteral orifice and up to the level of the large right ureteral stone. Under fluoroscopy we were able to manipulate the stone back into the renal pelvis. A guidewire then passed through the ureteral catheter and the ureteral catheter removed. A 6 x 26 Azerbaijani stent was then passed over the guidewire. Under fluoroscopy the guidewire removed and there was a good curl noted proximally and distally. The string was removed from the stent as well. Urine culture was obtained. Hobbs catheter was replaced. Patient tolerated well and discharged to the recovery room in stable condition. Should be discharged in the next 1 to 2 days with oral antibiotics. I will arrange ESWL for the right renal stones after a course of antibiotics. Condition: stable Disposition: PACU Specimens:: Urine culture Complications:: None
[2019-02-11 17:21] LABS: Microscopic, Urine URINE MICROSCOPIC (MICROSCOPIC)
[2019-02-11 17:27] LABS: Appearance,Urine CLEAR (Clear); Bilirubin,Urine Negative (Negative); Blood, Urine 3+ (Negative); Color,Urine YELLOW (Yellow); Glucose,Urine (UA) Negative (Negative); Ketones,Urine Negative (Negative); Leukocyte Esterase,Urine 2+ (Negative); PH,Urine 5.5 (5.0-8.5); Protein,Urine Negative (Negative); Specific Gravity, Urine <= 1.005 (1.005-1.030); Urobilinogen,Urine 0.2 EU/dl (0.2)
[2019-02-11 17:38] LABS: Amorphous Sediment,Urine Trace /lpf; Bacteria,Urine Trace /lpf; RBC,Urine Occasional #/hpf (0-3); Squamous Epithelial Cell,Urine Occasional #/hpf (0-5)
[2019-02-12 07:13] LABS: Basophils % 0.2 % (0.1-2.0); Eosinophils # 0.1 K/mm3 (0.0-0.4); Eosinophils % 1.8 % (0.1-12.0); Hematocrit 35.8 % (37.0-47.0); Hemoglobin 11.6 g/dL (12.2-16.2); Lymphocytes # 1.1 K/mm3 (0.7-4.5); Lymphocytes % 14.7 % (10-50); Mean Corpuscular HGB Conc 32.3 g/dL (31.8-35.4); Mean Corpuscular Volume 90.2 fl (81-99); Mean Platelet Volume 10.6 fl (7.4-10.4); Monocytes # 0.5 K/mm3 (0.1-1.0); Monocytes % 6.4 % (1.7-9.3); Neutrophils # 5.7 K/mm3 (1.8-7.8); Platelet Count 84 K/mm3 (142-424); Red Blood Count 3.96 M/mm3 (4.20-5.40); Red Cell Distribution Width 14.4 % (11.5-17.5); White Blood Count 7.4 K/mm3 (4.8-10.8)
[2019-02-12 07:33] LABS: Anion Gap 12.5 mEq/L (5-15); Calcium 7.6 mg/dL (8.5-10.1)
--- NOTE | 2019-02-12 08:21 | Discharge Summary ---
General - General Admission date:: 02/10/19 Discharge date: 02/12/19 HPI HPI: Ms. Cosby is a 53-year-old female with history of gastric bypass surgery, diabetes, frequent UTIs over the past 6 to 12 months who presented to the ER with fever and flank pain. Denied any emesis but complained of some abdominal pain and nausea. Symptoms had been worsening after acute occurrence on the morning of presentation to the ER. Initial work-up in the ER showed normal kidney function and normal white count. Abdominal imaging with CT showed obstructing 14 mm nephrolithiasis in the right UPJ and some nonobstructing stones on the left. Urology was consulted for assistance with management. Recommended admission and plan for stent placement. Patient was admitted to medicine for further management. Antibiotics were started. IV fluids were started. Pain control initiated as well. On assessment this morning, she states she feels much better after IV fluids. Denies any nausea or vomiting overnight. Developed fever overnight. Lactate has continued to climb and she has had very minimal urine output. Hospital Course Hospital Course: Ms. Cosby is done well during her admission. Symptoms have improved with fluids and antibiotics. Had stents placed yesterday by urology with improved urine output, decreased flank pain. Initiated on antibiotics at admission for obstructive uropathy and pyelonephritis. Noted to have E. coli bacteremia as well. His symptoms have defervesced with ceftriaxone, will continue IV antibiotics for a total of 14 days. Plan for PEG placement today. Patient is tolerating good oral intake, urinating independently. Has remained hemodynamically stable and afebrile. Kidney function much improved this morning. Urology plans for staged procedure with patient returning to clinic in a week to do lithotripsy in [place]. Given her response to antibiotics and improving condition, she is medically stable for discharge home to continue IV antibiotic therapy. Will set up with outpatient infusion and plan to come in daily for antibiotic administration here at [facility]. Patient denies any chest pain, shortness of breath, nausea, vomiting. Flank pain improved. Tolerating breakfast on interview this morning. Resume home medications for chronic conditions. Objective Vital signs: Temp Pulse Resp BP Pulse Ox 98.4 F 87 16 119/73 95 02/12/19 04:00 02/12/19 04:00 02/12/19 04:00 02/12/19 04:00 02/12/19 04:00 Narrative: - Constitutional no acute distress, morbidly obese - *Routine HEENT Exam Head: Present: normocephalic Eye: Present: EOMI, PERRL ENT: Present: mucous membranes moist - *Routine Neck Exam Present: supple. Absent: lymphadenopathy - *Routine Respiratory Exam Present: CTA bilaterally - *Routine Cardiovascular Exam Present: RRR - *Routine Abdominal Exam Present: soft, normoactive bowel sounds, minimal abdominal tenderness, significant improvement in right PA/flank pain, no CVA tenderness on left - *Routine Extremities Exam Present: edema (Baseline with chronic venous stasis changes in bilateral shins). Absent: cyanosis, clubbing - *Routine Skin Exam Present: warm. Absent: rash - *Routine Neurological Exam Present: alert, oriented X3 Results Labs on day of discharge: Labs from last 24 hours 02/12/19 02/12/19 02/12/19 06:32 06:32 05:44 WBC 7.4 D RBC 3.96 L Hgb 11.6 L Hct 35.8 L MCV 90.2 MCH 29.2 MCHC 32.3 RDW 14.4 Plt Count 84 L MPV 10.6 H Neut % (Auto) 77.0 Lymph % (Auto) 14.7 Ro[place] % (Auto) 6.4 Eos % (Auto) 1.8 Baso % (Auto) 0.2 Neut # (Auto) 5.7 Lymph # (Auto) 1.1 [place] # (Auto) 0.5 Eos # (Auto) 0.1 Baso # (Auto) 0.0 Sodium 142 Potassium 3.5 Chloride 107 Carbon Dioxide 26 Anion Gap 12.5 BUN 22 H Creatinine 1.16 H D Estimated Creat Clear 54 Estimated GFR 49 L Est GFR ( Amer) 60 D Glucose 121 H POC Glucose 105 Calcium 7.6 L Magnesium 1.4 Urine Color Urine Appearance Urine pH Ur Specific [place] Urine Protein Urine Glucose (UA) Urine Ketones Urine Blood Urine Nitrate Urine Bilirubin Urine Urobilinogen Ur Leukocyte Esterase Urine RBC Urine WBC Ur Squamous Epith Cells Urine Bacteria 02/11/19 02/11/19 02/11/19 20:19 16:41 11:25 WBC RBC Hgb Hct MCV MCH MCHC RDW Plt Count MPV Neut % (Auto) Lymph % (Auto) Ro[place] % (Auto) Eos % (Auto) Baso % (Auto) Neut # (Auto) Lymph # (Auto) Rolette # (Auto) Eos # (Auto) Baso # (Auto) Sodium Potassium Chloride Carbon Dioxide Anion Gap BUN Creatinine Estimated Creat Clear Estimated GFR Est GFR ( Amer) Glucose POC Glucose 151 H 90 98 Calcium Magnesium Urine Color Urine Appearance Urine pH Ur Specific [place] Urine Protein Urine Glucose (UA) Urine Ketones Urine Blood Urine Nitrate Urine Bilirubin Urine Urobilinogen Ur Leukocyte Esterase Urine RBC Urine WBC Ur Squamous Epith Cells Urine Bacteria 02/10/19 11:06 WBC RBC Hgb Hct MCV MCH MCHC RDW Plt Count MPV Neut % (Auto) Lymph % (Auto) Rolette % (Auto) Eos % (Auto) Baso % (Auto) Neut # (Auto) Lymph # (Auto) Ro[place] # (Auto) Eos # (Auto) Baso # (Auto) Sodium Potassium Chloride Carbon Dioxide Anion Gap BUN Creatinine Estimated Creat Clear Estimated GFR Est GFR ( Amer) Glucose POC Glucose Calcium Magnesium Urine Color Yellow Urine Appearance Sl cloudy Urine pH 5.5 Ur Specific [place] 1.025 Urine Protein Negative Urine Glucose (UA) Negative Urine Ketones Negative Urine Blood 2+ Urine Nitrate Positive Urine Bilirubin Negative Urine Urobilinogen 1.0 Ur Leukocyte Esterase 1+ A Urine RBC 3-5 Urine WBC 20-50 Ur Squamous Epith Cells 5-10 Urine Bacteria 3+ Preliminary micro results at discharge 02/10/19 12:30 Blood Culture - Preliminary Blood Gram Negative Rods 02/10/19 11:06 Urine Culture - Preliminary Urine,Clean Catch Gram Negative Rods Gram Negative Rods#2 DS: Diagnosis - Discharge Diagnosis (1) Morbid obesity with BMI of 40.0-44.9, adult Status: Chronic (2) Acute right flank pain Status: Resolved (3) Calculus of proximal right ureter Status: Acute (4) Obstructed, uropathy Status: Resolved (5) Urinary tract infection Status: Acute (6) Neuropathy Status: Chronic (7) Type 2 diabetes mellitus Status: Chronic (8) E coli bacteremia Status: Acute (9) Acute kidney injury Status: Resolved Discharge Plan - Patient Discharge Instructions ACTIVITY: Continue current activity DIET: continue same diet Patient Instructions: Kidney Stones -- Adult, DI for Urinary Tract Infection (UTI) - Follow up Plan Follow up with: Peter Chaidez MD [Staff Physician] - Flako Merino MD [Staff Physician] - Disposition: Home, Self-Custodial Medications: Home Medications Medication Instructions Recorded Confirmed Type hydrocodone 7.5 mg-acetaminophen 1 tab PO Q8HP PRN 03/26/17 02/10/19 History 325 mg tablet Fluticasone Propionate [Flonase 2 spr NOSTRIL-B DAILY 04/23/17 02/11/19 History 50mcg nasal spray 16gm] ondansetron HCl 4 mg tablet 4 mg PO Q8HP PRN tab 06/11/17 02/11/19 History oxybutynin chloride 5 mg tablet 5 mg PO QID 06/11/17 02/10/19 History Duloxetine HCl 60 mg PO DAILY 02/10/19 02/10/19 History Ergocalciferol (Vitamin D2) 50,000 units PO WEEKLY 02/10/19 02/10/19 History [Drisdol 50,000 units (1.25mg) capsule] Furosemide [Furosemide 40MG tAB] 40 mg PO DAILY 02/10/19 02/10/19 History Ibuprofen/Famotidine [Duexis 1 tab PO TIDWM 02/10/19 02/11/19 History 800-26.6 mg Tablet] Semaglutide [Ozempic] 0.5 mg SQ WEEKLY 02/10/19 02/10/19 History Albuterol Sulfate [Proair Hfa 2 puffs IH TIDP PRN 02/11/19 02/11/19 History 90mcg/puff Inh] Cyanocobalamin (Vitamin B-12) 1,000 mcg PO DAILY 02/11/19 02/11/19 History [Vitamin B-12] Gabapentin 600 mg PO TID 02/11/19 02/11/19 History Loratadine [Claritin 10mg Tablet] 10 mg PO DAILY 02/11/19 02/11/19 History Metformin HCl 500 mg PO BID 02/11/19 02/11/19 History Ropinirole HCl 1 mg PO HS 02/11/19 02/11/19 History Tizanidine HCl 4 mg PO BIDP PRN 02/11/19 02/11/19 History Ceftriaxone 1 gm [Rocephin 1gm ADV] 1 gm IV DAILY 11 Days #11 vial.port 02/12/19 Rx Tamsulosin HCl [Flomax 0.4mg 0.4 mg PO HS 30 Days #30 cap.er.24h 02/12/19 Rx capsule] Prescriptions/Medication Reconciliation: New Tamsulosin HCl [Flomax 0.4mg capsule] 0.4 mg PO HS 30 Days #30 cap.er.24h Continued hydrocodone 7.5 mg-acetaminophen 325 mg tablet 1 tab PO Q8HP PRN PRN Reason: pain oxybutynin chloride 5 mg tablet 5 mg PO QID ondansetron HCl 4 mg tablet 4 mg PO Q8HP PRN tab PRN Reason: nausea/vomiting Fluticasone Propionate [Flonase 50mcg nasal spray 16gm] 2 spr NOSTRIL-B DAILY Semaglutide [Ozempic] 0.5 mg SQ WEEKLY Furosemide [Furosemide 40MG tAB] 40 mg PO DAILY Ibuprofen/Famotidine [Duexis 800-26.6 mg Tablet] 1 tab PO TIDWM Ergocalciferol (Vitamin D2) [Drisdol 50,000 units (1.25mg) capsule] 50,000 units PO WEEKLY Albuterol Sulfate [Proair Hfa 90mcg/puff Inh] 2 puffs IH TIDP PRN PRN Reason: Shortness Of Breath Or Wheezing Cyanocobalamin (Vitamin B-12) [Vitamin B-12] 1,000 mcg PO DAILY Gabapentin 600 mg PO TID Loratadine [Claritin 10mg Tablet] 10 mg PO DAILY Metformin HCl 500 mg PO BID Ropinirole HCl 1 mg PO HS Tizanidine HCl 4 mg PO BIDP PRN PRN Reason: Muscle Spasm Duloxetine HCl 60 mg PO DAILY - Problem Reconciliation Problems Reviewed?: Yes
--- NOTE | 2019-02-12 10:04 | Progress Note ---
Internal Medicine - PN: Subj *Date: 02/12/19 *Time: 10:00 Interval history: Patient is feeling better today. She does have some stent irritation. Some blood-tinged urine is reported. Her white count and creatinine have normalized this morning. She has had good urine output overnight and her Hobbs catheter was removed. KUB this morning shows that the right-sided stent is in good position. Exam Vital signs and Labs for Last 24 Hours: Temp Pulse Resp BP Pulse Ox 98.3 F 83 20 155/88 H 96 02/12/19 08:00 02/12/19 08:00 02/12/19 08:00 02/12/19 08:00 02/12/19 08:00 Laboratory Results - last 24 hr 02/10/19 11:06: Urine Color Yellow, Urine Appearance Sl cloudy, Urine pH 5.5, Ur Specific [place] 1.025, Urine Protein Negative, Urine Glucose (UA) Negative, Urine Ketones Negative, Urine Blood 2+, Urine Nitrate Positive, Urine Bilirubin Negative, Urine Urobilinogen 1.0, Ur Leukocyte Esterase 1+ A, Urine RBC 3-5, Urine WBC 20-50, Ur Squamous Epith Cells 5-10, Urine Bacteria 3+ 02/11/19 11:25: POC Glucose 98 02/11/19 16:41: POC Glucose 90 02/11/19 20:19: POC Glucose 151 H 02/12/19 05:44: POC Glucose 105 02/12/19 06:32: WBC 7.4 D, RBC 3.96 L, Hgb 11.6 L, Hct 35.8 L, MCV 90.2, MCH 29.2, MCHC 32.3, RDW 14.4, Plt Count 84 L, MPV 10.6 H, Neut % (Auto) 77.0, Lymph % (Auto) 14.7, [place] % (Auto) 6.4, Eos % (Auto) 1.8, Baso % (Auto) 0.2, Neut # (Auto) 5.7, Lymph # (Auto) 1.1, [place] # (Auto) 0.5, Eos # (Auto) 0.1, Baso # (Auto) 0.0 02/12/19 06:32: Sodium 142, Potassium 3.5, Chloride 107, Carbon Dioxide 26, Anion Gap 12.5, BUN 22 H, Creatinine 1.16 H D, Estimated Creat Clear 54, Estimated GFR 49 L, Est GFR ( Amer) 60 D, Glucose 121 H, Calcium 7.6 L, Magnesium 1.4 I & O for Last 24 hours: Intake & Output 02/09/19 02/10/19 02/11/19 02/12/19 23:59 23:59 23:59 23:59 Intake Total 1000 / 1000 3386 / 3386 1667 / 1667 Output Total 900 / 900 Balance 1000 / 1000 3386 / 3386 767 / 767 Weight 110.365 kg 112.292 kg 117.084 kg Microbiology Reports for the Last 24 Hours: Microbiology 02/10/19 12:30 Blood Blood Culture - Preliminary Gram Negative Rods 02/10/19 11:06 Urine,Clean Catch Urine Culture - Preliminary Gram Negative Rods Gram Negative Rods#2 Narrative: Well-nourished white female in no apparent distress Head is normocephalic Neck is symmetric Normal respiratory effort Abdomen normal to visual inspection Alert and oriented x3 Normal gait and stance Assessment and Plan (1) Morbid obesity with BMI of 40.0-44.9, adult Current visit: Yes Status: Chronic Category: Medical Code(s): E66.01 - Morbid (severe) obesity due to excess calories; Z68.41 - Body mass index (BMI) 40.0-44.9, adult (2) Acute right flank pain Current visit: Yes Status: Resolved Category: Medical Code(s): R10.9 - Unspecified abdominal pain (3) Calculus of proximal right ureter Current visit: Yes Status: Acute Category: Medical Code(s): N20.1 - Calculus of ureter Postop day 1 status post right stone manipulation and right stent placement. Patient feels better and her white count and kidney function have normalized. KUB this morning shows the ureteral stent in good position. We discussed that the stent will remain in position until we can get her scheduled for ESWL. She is to go home on IV antibiotics. I will set the lithotripsy up for the end of next week. (4) Obstructed, uropathy Current visit: Yes Status: Resolved Category: Medical Code(s): N13.9 - Obstructive and reflux uropathy, unspecified (5) Urinary tract infection Current visit: Yes Status: Acute Qualifiers: Urinary tract infection type: site unspecified Hematuria presence: without hematuria Qualified Code(s): N39.0 - Urinary tract infection, site not specified Category: Medical Code(s): N39.0 - Urinary tract infection, site not specified (6) Neuropathy Current visit: No Status: Chronic Category: Medical Code(s): G62.9 - Polyneuropathy, unspecified (7) Type 2 diabetes mellitus Current visit: Yes Status: Chronic Qualifiers: Diabetes mellitus complication detail: with polyneuropathy Category: Medical Code(s): E11.9 - Type 2 diabetes mellitus without complications (8) E coli bacteremia Current visit: Yes Status: Acute Category: Medical Code(s): R78.81 - Bacteremia (9) Acute kidney injury Current visit: Yes Status: Resolved Category: Medical Code(s): N17.9 - Acute kidney failure, unspecified
== END 2019-02-12 16:02 | disposition home or self-care (01) | DRG 660 ==
LOC: ER 10:28 → 2ND 10:28 → OBSVTOIN 16:27
PROVIDERS: ADMIT Internal Medicine Adolescent Medicine; ATTEND Internal Medicine Adolescent Medicine
DX: Z79.84 Long term (current) use of oral hypoglycemic drugs; E66.01 Morbid (severe) obesity due to excess calories; E11.42 Type 2 diabetes mellitus with diabetic polyneuropathy; Z68.41 Body mass index [BMI] 40.0-44.9, adult; N20.1 Calculus of ureter; N13.6 Pyonephrosis; N13.9 Obstructive and reflux uropathy, unspecified; R78.81 Bacteremia
CPT/HCPCS: 36415; 36569; 71010; 71045; 74000; 74018; 74176; 74430; 80048; 80053; 81001; 82150; 82962; 83605; 83690; 83735; 85007; 85025; 87040; 87077; 87086; 87088; 87186; 96365; 96367; 96375; 99285; C1751; C2617; J2405

== ENCOUNTER 2019-02-13 13:06 | Outpatient (CLI) | payer BC, SELFPAY ==
[2019-02-13 13:06] VITALS: BP 109/76; PULSE 81; RESP 18; O2SAT 100
[2019-02-13 13:17] VITALS: BP 123/75; PULSE 80; RESP 19; TEMP 36.6; O2SAT 98
== END 2019-02-13 14:31 | disposition home or self-care (01) ==
LOC: INF 13:07
PROVIDERS: PCP Internal Medicine Adolescent Medicine; Visit Provider Internal Medicine Adolescent Medicine
DX: R10.9 Unspecified abdominal pain (principal); N20.1 Calculus of ureter; N13.9 Obstructive and reflux uropathy, unspecified; N39.0 Urinary tract infection, site not specified
CPT/HCPCS: 96365

== ENCOUNTER 2019-02-14 12:50 | Outpatient (CLI) | payer BC, SELFPAY ==
[2019-02-14 13:15] VITALS: BP 146/76; PULSE 85; RESP 20; TEMP 37; O2SAT 100
[2019-02-14 13:43] VITALS: BP 122/60; PULSE 84; RESP 20; O2SAT 100
== END 2019-02-14 13:43 | disposition home or self-care (01) ==
PROVIDERS: PCP Internal Medicine Adolescent Medicine; Visit Provider Internal Medicine Adolescent Medicine
DX: R10.9 Unspecified abdominal pain (principal); N20.1 Calculus of ureter; N13.9 Obstructive and reflux uropathy, unspecified; N39.0 Urinary tract infection, site not specified
CPT/HCPCS: 96365

== ENCOUNTER 2019-02-15 12:57 | Outpatient (CLI) | payer BC, SELFPAY ==
[2019-02-15 13:25] VITALS: BP 140/74; PULSE 88; RESP 18; TEMP 36.6; O2SAT 97
[2019-02-15 14:07] VITALS: BP 137/77; PULSE 81; RESP 18; O2SAT 98
== END 2019-02-15 14:07 | disposition home or self-care (01) ==
LOC: INF 12:57
PROVIDERS: Visit Provider Internal Medicine Adolescent Medicine
DX: R78.81 Bacteremia (principal); B96.20 Unspecified Escherichia coli [E. coli] as the cause of diseases classified elsewhere
CPT/HCPCS: 96365

== ENCOUNTER 2019-02-16 12:55 | Outpatient (CLI) | payer BC, SELFPAY ==
[2019-02-16 13:02] VITALS: BP 146/84; PULSE 80; RESP 18; O2SAT 100
[2019-02-16 14:09] VITALS: BP 157/85; PULSE 76; RESP 18
== END 2019-02-16 14:09 | disposition home or self-care (01) ==
LOC: INF 12:55
PROVIDERS: Visit Provider Internal Medicine Adolescent Medicine
DX: R78.81 Bacteremia (principal); B96.20 Unspecified Escherichia coli [E. coli] as the cause of diseases classified elsewhere
CPT/HCPCS: 96365

== ENCOUNTER 2019-02-17 12:55 | Outpatient (CLI) | payer BC, SELFPAY ==
[2019-02-17 13:12] VITALS: BP 138/75; PULSE 81; RESP 18; TEMP 36.4; O2SAT 100
[2019-02-17 13:42] VITALS: BP 131/79; PULSE 84; RESP 18; O2SAT 99
[2019-02-17 14:12] VITALS: BP 134/76; PULSE 80; RESP 18; O2SAT 99
== END 2019-02-17 14:13 | disposition home or self-care (01) ==
LOC: INF 12:58
PROVIDERS: Visit Provider Internal Medicine Adolescent Medicine
DX: R78.81 Bacteremia (principal); B96.20 Unspecified Escherichia coli [E. coli] as the cause of diseases classified elsewhere
CPT/HCPCS: 96365

== ENCOUNTER 2019-02-18 12:49 | Outpatient (CLI) | payer BC, SELFPAY ==
[2019-02-18 13:09] VITALS: BP 135/75; BP 143/71; PULSE 84; RESP 18; O2SAT 98; O2SAT 99
== END 2019-02-18 14:09 | disposition home or self-care (01) ==
LOC: INF 12:49
PROVIDERS: Visit Provider Internal Medicine Adolescent Medicine
DX: R78.81 Bacteremia (principal); B96.20 Unspecified Escherichia coli [E. coli] as the cause of diseases classified elsewhere
CPT/HCPCS: 96365

== ENCOUNTER 2019-02-20 12:47 | Outpatient (CLI) | payer BC, SELFPAY ==
[2019-02-20 12:59] VITALS: BP 129/52; PULSE 93; RESP 18; TEMP 37.2; O2SAT 97
[2019-02-20 14:00] VITALS: BP 142/77; PULSE 87; RESP 18; TEMP 36.8; O2SAT 99
[2019-02-20 14:01] VITALS: BP 142/77; PULSE 87; RESP 18; TEMP 36.8; O2SAT 99
== END 2019-02-20 14:05 | disposition home or self-care (01) ==
LOC: INF 12:47
PROVIDERS: PCP Internal Medicine Adolescent Medicine; Visit Provider Internal Medicine Adolescent Medicine
DX: R78.81 Bacteremia (principal); B96.20 Unspecified Escherichia coli [E. coli] as the cause of diseases classified elsewhere
CPT/HCPCS: 96365

== ENCOUNTER → 2019-02-21 12:49 | Outpatient (CLI) | payer BC, SELFPAY ==
[2019-02-21 13:15] VITALS: BP 156/82; PULSE 96; RESP 20; TEMP 37.2; O2SAT 100
== END ==
PROVIDERS: PCP Internal Medicine Adolescent Medicine; Visit Provider Internal Medicine Adolescent Medicine
DX: R78.81 Bacteremia (principal); B96.20 Unspecified Escherichia coli [E. coli] as the cause of diseases classified elsewhere
CPT/HCPCS: 96365

== ENCOUNTER 2019-02-22 12:48 | Outpatient (CLI) | payer BC, SELFPAY ==
[2019-02-22 13:04] VITALS: BP 146/93; PULSE 94; RESP 18; TEMP 36.5; O2SAT 99
[2019-02-22 13:34] VITALS: BP 140/87; PULSE 91; RESP 18; O2SAT 98
[2019-02-22 13:55] VITALS: BP 143/81; PULSE 90; RESP 18; O2SAT 98
== END 2019-02-22 14:01 | disposition home or self-care (01) ==
LOC: INF 12:48
PROVIDERS: Visit Provider Internal Medicine Adolescent Medicine
DX: R78.81 Bacteremia (principal); B96.20 Unspecified Escherichia coli [E. coli] as the cause of diseases classified elsewhere
CPT/HCPCS: 96365

== ENCOUNTER 2019-02-23 11:22 | Outpatient (CLI) | payer BC, SELFPAY ==
[2019-02-23 11:49] VITALS: BP 110/71; PULSE 86; RESP 18; TEMP 36.7; O2SAT 100
[2019-02-23 12:25] VITALS: BP 169/90; PULSE 85; RESP 18; TEMP 36.9; O2SAT 98
[2019-02-23 12:30] VITALS: BP 169/90; PULSE 85; RESP 18; TEMP 37; O2SAT 98
== END 2019-02-23 12:32 | disposition home or self-care (01) ==
LOC: INF 11:22
PROVIDERS: PCP Internal Medicine Adolescent Medicine; Visit Provider Internal Medicine Adolescent Medicine
DX: R78.81 Bacteremia (principal); B96.20 Unspecified Escherichia coli [E. coli] as the cause of diseases classified elsewhere
CPT/HCPCS: 96365

== ENCOUNTER 2019-02-26 12:57 | Outpatient (CLI) | payer BC, SELFPAY ==
--- NOTE | 2019-02-26 13:04 | XR_ITS ---
PROCEDURE: XR KUB CLINICAL INDICATION: kidney stone COMPARISON: CT ABDOMEN PELVIS WO CON from 02/10/2019 FINDINGS: There is a right ureteral stent with numerous punctate calculi within the central aspect of the pigtail of the stent overlying the right renal shadow and numerous small calculi likely at the lower pole justine of the right kidney. There are some lower right-sided pelvic calcifications 1 of which is just lateral to the distal stent although could be a phlebolith. There are other pelvic phleboliths. There are clips from cholecystectomy. Bowel gas pattern is normal. Osseous structures are unremarkable. IMPRESSION: Right-sided stent with a right renal calculi scribe above. Most pelvic calcifications are phleboliths although there is a 1 millimeter calcification close to the distal stent and could not exclude a ureteral stone. Dictated by: Carlitos Parker 02/26/2019 13:57 Electronically signed by Carlitos Parker in [facility] 02/26/2019 13:57
[2019-03-26 12:34] LABS: Specimen Type Comment: (.)
== END 2019-02-26 14:00 | disposition home or self-care (01) ==
PROVIDERS: PCP Internal Medicine Adolescent Medicine; Referring Provider Urology; Visit Provider Internal Medicine Adolescent Medicine
DX: N20.0 Calculus of kidney (principal)
CPT/HCPCS: 74018; 82370; G0463

== ENCOUNTER → 2019-07-22 11:34 | Outpatient (CLI) | payer BC, SELFPAY ==
[2019-07-22 12:16] LABS: Basophils # 0.1 K/mm3 (0-0.2); Basophils % 0.9 % (0.1-2.0); Eosinophils # 0.1 K/mm3 (0.0-0.4); Eosinophils % 2.3 % (0.1-12.0); Hemoglobin 13.5 g/dL (12.2-16.2); Lymphocytes # 1.9 K/mm3 (0.7-4.5); Lymphocytes % 33.2 % (10-50); Mean Corpuscular HGB Conc 32.3 g/dL (31.8-35.4); Mean Corpuscular Hemoglobin 29.5 pg (27.0-31.2); Mean Corpuscular Volume 91.3 fl (81-99); Mean Platelet Volume 10.4 fl (7.4-10.4); Monocytes # 0.3 K/mm3 (0.1-1.0); Monocytes % 4.7 % (1.7-9.3); Neutrophils # 3.4 K/mm3 (1.8-7.8); Platelet Count 124 K/mm3 (142-424); Red Cell Distribution Width 14.1 % (11.5-17.5); White Blood Count 5.8 K/mm3 (4.8-10.8)
[2019-07-22 12:59] LABS: Alanine Aminotransferase 28 U/L (12-78); Albumin Level 4.1 g/dl (3.5-5.0); Albumin/Globulin Ratio 1.5 (1.1-1.8); Alkaline Phosphatase 91 U/L (38-126); Anion Gap 8.2 mEq/L (5-15); Aspartate Amino Transferase 45 U/L (14-36); Bilirubin,Total 1.2 mg/dl (0.2-1.3); Blood Urea Nitrogen 18 mg/dl (7-17); Calcium 9.8 mg/dl (8.4-10.2); Carbon Dioxide 30 mmol/L (22.0-30.0); Chloride 100 mmol/L (98-107); Estimated Glomerular Filt Rate 88 ml/min (>60); GFR (African American) 107 ML/MIN (>60); Globulin 2.7 g/dL (1.3-3.2); Glucose 138 mg/dl (74-100); Potassium 4.2 mmoL/L (3.5-5.1); Sodium 134 mmol/L (136-145); Total Protein,Serum 6.8 g/dl (6.3-8.2)
[2019-07-22 13:12] LABS: Hemoglobin A1C 5.3 % (4.0-6.0)
[2019-07-23 05:37] LABS: Vitamin B12 >2000 pg/mL (232-1245)
== END ==
PROVIDERS: Visit Provider Internal Medicine Adolescent Medicine
DX: E11.8 Type 2 diabetes mellitus with unspecified complications (principal); R30.0 Dysuria
CPT/HCPCS: 36415; 80053; 82607; 83036; 85025; 87086; 87088; 87186

== ENCOUNTER → 2019-12-17 10:40 | Outpatient (CLI) | payer BC, SELFPAY ==
--- NOTE | 2019-12-17 | XR_ITS ---
PROCEDURE: XR LUMBAR SPINE MIN 4V CLINICAL INDICATION: ACUTE RT SIDED LOW BACK PAIN W/O SCIATICA COMPARISON: No exams were available for comparison FINDINGS: No fracture or dislocation. No lytic or blastic change. There is normal mineralization. There is degenerative disc disease in the lower thoracic spine and at L5-S1. There are mild degenerative changes in the SI joints. Other findings:None. IMPRESSION: Degenerative changes, no acute finding. Dictated by: Zoltan Haji MD 12/17/2019 17:21 Zoltan Haji MD in [facility] 12/17/2019 17:21
== END ==
PROVIDERS: PCP Internal Medicine Adolescent Medicine; Visit Provider Internal Medicine Adolescent Medicine
DX: M54.5 Low back pain (principal)
CPT/HCPCS: 72110

== ENCOUNTER → 2019-12-28 12:49 | Outpatient (CLI) | payer BC, SELFPAY ==
--- NOTE | 2019-12-28 12:56 | XR_ITS ---
PROCEDURE: XR CHEST PORTABLE CLINICAL HISTORY: COVID OUTPATIENT COMPARISON: CR CXR2V XR chest 2V from 04/06/2018 CR XR CHEST PORTABLE PICC PLAC from 02/12/2019 FINDINGS: The cardiomediastinal silhouette and pulmonary vascularity are within normal limits. There are faint areas of increased density involving the right 3rd rib anteriorly in the right 5th rib anteriorly. This could be due to healing rib fractures or even underlying pulmonary nodules. No lobar consolidation or collapse is evident. These areas of increased density have developed since 02/12/2019. No acute bony abnormalities. IMPRESSION: Increased density overlying the right 3rd and 5th rib which could be due to healing fractures or sclerotic rib lesions. Otherwise negative chest CT may provide further evaluation Dictated by: Zoltan Haji MD 12/28/2019 14:03 Zoltan Haji MD in [facility] 12/28/2019 14:03
[2019-12-28 13:10] LABS: Adenovirus,PCR Not Detected (NotDetected); Bordetella Pertussis Not Detected (NotDetected); Chlamydophila Pneumoniae, PCR Not Detected (NotDetected); Coronavirus 19, PCR Not Detected (NotDetected); Coronavirus 229E Not Detected (NotDetected); Coronavirus NL63 Not Detected (NotDetected); Coronavirus OC43 Not Detected (NotDetected); Coronovirus HKU1,PCR Not Detected (NotDetected); Human Metapneumovirus Not Detected (NotDetected); Influenza A, PCR Not Detected (NotDetected); Influenza AH1, 2009 Not Detected (NotDetected); Influenza AH1, PCR Not Detected (NotDetected); Influenza AH3,PCR Not Detected (NotDetected); Influenza B, PCR Not Detected (NotDetected); Mycoplasma Pneumoniae, PCR Not Detected (NotDetected); Parainfluenza 1, PCR Not Detected (NotDetected); Parainfluenza 2, PCR Not Detected (NotDetected); Parainfluenza 3, PCR Not Detected (NotDetected); Parainfluenza 4, PCR Not Detected (NotDetected); Respiratory Syncytial Virus Not Detected (NotDetected); Rhinovirus/Enterovirus Not Detected (NotDetected)
[2019-12-28 13:17] LABS: Basophils % 0.7 % (0.1-2.0); Eosinophils # 0.1 K/mm3 (0.0-0.4); Eosinophils % 2.7 % (0.1-12.0); Hematocrit 46.3 % (37.0-47.0); Lymphocytes # 1.2 K/mm3 (0.7-4.5); Lymphocytes % 30.1 % (10-50); Mean Corpuscular HGB Conc 32.4 g/dL (31.8-35.4); Mean Corpuscular Hemoglobin 29.8 pg (27.0-31.2); Mean Platelet Volume 9.5 fl (7.4-10.4); Monocytes # 0.3 K/mm3 (0.1-1.0); Monocytes % 6.8 % (1.7-9.3); Neutrophils # 2.4 K/mm3 (1.8-7.8); Neutrophils % 59.7 % (37.0-80.0); Platelet Count 114 K/mm3 (142-424); Red Blood Count 5.03 M/mm3 (4.20-5.40); Red Cell Distribution Width 14.1 % (11.5-17.5); White Blood Count 4.1 K/mm3 (4.8-10.8)
[2019-12-28 14:17] LABS: Chloride 102 mmol/L (98-107)
[2019-12-28 14:18] LABS: Potassium 5.3 mmoL/L (3.5-5.1); Sodium 138 mmol/L (136-145)
[2019-12-28 14:20] LABS: Alanine Aminotransferase 38 U/L (12-78); Aspartate Amino Transferase 60 U/L (14-36); Blood Urea Nitrogen 15 mg/dl (7-17); Estimated Glomerular Filt Rate 75 ml/min (>60); GFR (African American) 91 ML/MIN (>60)
[2019-12-28 14:21] LABS: Albumin Level 3.7 g/dl (3.5-5.0); Albumin/Globulin Ratio 1.3 (1.1-1.8); Alkaline Phosphatase 74 U/L (38-126); Anion Gap 9.3 mEq/L (5-15); Calcium 9.1 mg/dl (8.4-10.2); Carbon Dioxide 32 mmol/L (22.0-30.0); Globulin 2.9 g/dL (1.3-3.2); Glucose 135 mg/dl (74-100); Total Protein,Serum 6.6 g/dl (6.3-8.2)
== END ==
PROVIDERS: PCP Internal Medicine Adolescent Medicine; Visit Provider Internal Medicine Adolescent Medicine
DX: R06.02 Shortness of breath (principal); D69.6 Thrombocytopenia, unspecified; Z03.818 Encounter for observation for suspected exposure to other biological agents ruled out
CPT/HCPCS: 36415; 71045; 80053; 85025; 87581; 87633; 87798

== ENCOUNTER → 2020-01-24 08:56 | Outpatient (POV) | payer BC, SELFPAY ==
[2020-01-24 09:00] VITALS: BP 132/85; PULSE 84; RESP 18; TEMP 36.8; O2SAT 98; BMI 42.6
--- NOTE | 2020-01-24 10:12 | HMH.PMCON ---
Assessment and Plan (1) Sacroiliitis Status: Chronic Category: Medical Code(s): M46.1 - Sacroiliitis, not elsewhere classified (2) Degenerative disc disease Status: Chronic Category: Medical - Assessment and plan all Dx Assessment and Plan for all problems:: We will schedule right SI joint injection for the patient given her symptomology I do believe it would benefit her. If she gets relief from this we will move forward with getting an MRI of her lumbar spine to help determine other pain generators. Patient has been instructed to call the office if she has any issues prior to next appointment. Dr. Negrete has reviewed this note and agrees with this plan of care. This note was dictated using voice recognition software and may contain errors or omissions HPI - Data of Consult Consult date: 01/24/20 Requesting Physician: Madison Wray APRN Primary Care Provider: Victor Manuel Campbell MD - Consult Narrative Reason for consult: SI joint pain History of present illness: Ms. Cosby is a 54 year old female who presents today for consultation regards her right SI joint pain. She is had this for several months however it is getting worse. She has pain that radiates into her groin and down to her thigh on the right side. She is extremely tender over her SI joint. She rates her pain a 5 out of 10. Patient has difficulty with standing and walking for quite a bit of time. She also has a history of neuropathy in her bilateral legs and feet. Patient has had injections in the past however they were not for SI joint dysfunction. She is currently on 12 Arlee tizanidine gabapentin Duexis medications have not benefited her over the last 3 months. Patient has tried physical therapy however it was not beneficial for her. CC: Madison Wray APRN [facility] History I have reviewed the patient's past medical history: Yes Medical History: Reports:: Diabetes Mellitus Type 2, Gastroesophageal Reflux Disease(GERD), Hypertension, Internal Pacemaker, Kidney Stones Denies:: Cancer, Diabetes Mellitus Type 1, Lung Disease, MRSA, Seizures *Have you ever received a pneumonia vaccine?: Yes *Have you received a flu vaccine this season?: Yes Other Medical History: Reports: Anemia, Arthritis, Fibromyalgia, Hoarseness, Other (neuropathy, allergies) Laterality Cases: Bilateral: Other Other Surgeries: Yes: Bariatric Surgery, Cholecystectomy, Colonoscopy, , Pacemaker, Tubal Ligation, Other (gastric bypass,gallbladder) Amputation: No Fractures: No - *Social History Smoking Status: Never smoker Alcohol Intake: never Alcohol Intake Frequency:: holidays/special occasions only Substance Use Type: denies use *Occupational Status:: other Housing: house Household Members: other *Travel in the last 8 weeks: None Family Hx:: Unable to obtain Review of Systems - Review of Systems ROS General: no recent weight change, no fever, no sleep disturbances Respiratory: no cough, no shortness of air, no recurring pulmonary infections Cardiovascular/Peripheral Vascular: No chest pain, No palpitations, no edema, no shortness of breath. Gastrointestinal: no new onset incontinence, normal bowel movements reported Genitourinary: no new onset incontinence Musculoskeletal: SI joint pain Psychiatric: normal mood/ affect Neurological: [denies new onset weakness in extremities], [denies new onset balance issues] Meds Home Medications Medication Instructions Recorded Confirmed Type hydrocodone 7.5 mg-acetaminophen 1 tab PO Q8HP PRN 03/26/17 03/01/19 History 325 mg tablet Fluticasone Propionate [Flonase 2 spr NOSTRIL-B DAILY 04/23/17 03/01/19 History 50mcg nasal spray 16gm] ondansetron HCl 4 mg tablet 4 mg PO Q8HP PRN tab 06/11/17 03/01/19 History oxybutynin chloride 5 mg tablet 5 mg PO QID 06/11/17 03/01/19 History Duloxetine HCl 60 mg PO DAILY 02/10/19 03/01/19 History Ergocalciferol (Vitamin D2) 50,000 units PO WEEKLY 02/10/1903/01
== END ==
PROVIDERS: PCP Internal Medicine Adolescent Medicine; Visit Provider Clinical Nurse Specialist Family Health
DX: M46.1 Sacroiliitis, not elsewhere classified (principal); Z87.39 Personal history of other diseases of the musculoskeletal system and connective tissue
CPT/HCPCS: 99202

== ENCOUNTER 2020-02-28 15:16 | Day surgery (SDC) | payer BC, SELFPAY ==
[2020-02-28 15:33] VITALS: BP 140/74; PULSE 98; RESP 18; TEMP 36.2; O2SAT 100; BMI 42.7
[2020-02-28 15:52] VITALS: BP 140/74; PULSE 84; RESP 18
[2020-02-28 15:53] VITALS: BP 138/88; PULSE 85; RESP 18; O2SAT 98
--- NOTE | 2020-02-28 15:54 | HMH.PMPROC ---
- Procedure Date: 02/28/20 Time: 15:54 Anesthesiologist:: Madison Wray APRN Complications:: None Pre-procedure Diagnosis:: Sacroiliitis Post-procedure Diagnosis:: Same Indications for Procedure:: Patient is a pleasant 54-year-old white female who presents today for right SI joint injection. Patient has a positive Allison test SI joint compression test Ron's test and distraction test on the right side. Patient is wanting to move forward with her right SI joint injection today. She rates her pain today a 6 out of 10. Procedure Details:: Informed consent was obtained and the risks and benefits of the procedure were explained to the patient. Patient was taken to the procedure room. Patient was placed prone on the procedure table. The [right] hip was prepped using ChloraPrep as a cleansing solution. The skin and subcutaneous tissues were anesthetized using lidocaine. Using fluoroscopic guidance I placed a 22-gauge spinal needle into the inferior aspect of the [right] SI joint. After this I injected 5 mL bupivacaine 0.25% and Depo-Medrol 40 mg into the [right] SI joint. The patient tolerated the procedure well with no complication. Plan and Disposition:: I will see the patient back in several weeks reassess her symptoms at that time she has been instructed to call the office if she has any issues prior to her next appointment. Dr. Negrete has reviewed this note and agrees with this plan of care. This note was dictated using voice recognition software and may contain errors or omissions
[2020-02-28 16:04] VITALS: BP 138/76; PULSE 87; RESP 20; O2SAT 100
== END 2020-02-28 16:05 | disposition home or self-care (01) ==
LOC: SC.PAINP 15:16
PROVIDERS: PCP Internal Medicine Adolescent Medicine; Visit Provider Clinical Nurse Specialist Family Health
DX: M46.1 Sacroiliitis, not elsewhere classified (principal); E11.9 Type 2 diabetes mellitus without complications; I10 Essential (primary) hypertension; Z82.49 Family history of ischemic heart disease and other diseases of the circulatory system; Z88.0 Allergy status to penicillin; Z87.19 Personal history of other diseases of the digestive system; Z87.442 Personal history of urinary calculi; Z87.448 Personal history of other diseases of urinary system; G43.909 Migraine, unspecified, not intractable, without status migrainosus; Z98.84 Bariatric surgery status; Z88.1 Allergy status to other antibiotic agents; Z79.899 Other long term (current) drug therapy
CPT/HCPCS: 62370; J1040; Q9966

== ENCOUNTER → 2020-03-27 09:57 | Outpatient (POV) | payer BC, SELFPAY ==
[2020-03-27 10:12] VITALS: BP 132/74; PULSE 74; RESP 18; TEMP 36.8; O2SAT 99; BMI 42.7
--- NOTE | 2020-03-27 13:08 | P.CONS_ITS ---
[facility] Pain Management SOAP Note Subjective:: Patient is a pleasant 54-year-old white female who presents today for follow-up after right SI joint injection. Patient did not get any relief from this. Patient has now failed over 6 months of treatment for her pain including medication management and physical therapy. She is continuing to stay as active as possible. Most of her pain is in her low back I do believe that an MRI is appropriate at this time. She is failed physical therapy, medications, anti- inflammatories, SI joint injections. She rates her pain a 7 out of 10 ROS General: no recent weight change, no fever, no sleep disturbances Respiratory: no cough, no shortness of air, no recurring pulmonary infections Cardiovascular/Peripheral Vascular: No chest pain, No palpitations, no edema, no shortness of breath. Gastrointestinal: no new onset incontinence, normal bowel movements reported Genitourinary: no new onset incontinence Musculoskeletal: Back pain, leg pain Psychiatric: normal mood/ affect Neurological: [denies new onset weakness in extremities], [denies new onset balance issues] Objective:: Physical Exam General: Alert and oriented x3, no acute distress, pleasant and cooperative, [on room air] Lungs: Resps E/U, Symmetrical chest expansion, Eyes: PERRL Musculoskeletal: Flexion and extension of lumbar spine somewhat guarded secondary to pain, deep tendon reflexes normal, strength in upper and lower extremities [5/5], [abnormal gait noted] Neurological: speech clear, parking supervisor equal, no gross sensory deficits Assessment:: Back pain, lumbar radiculopathy, sacroiliitis Plan:: We will order a lumbar MRI for the patient. I will follow-up with her after this reassess her symptoms at that time she has been instructed to call the office if she has any issues prior to her next appointment. Dr. Negrete has reviewed this note and agrees with this plan of care. This note was dictated using voice recognition software and may contain errors or omissions [facility] History I have reviewed the patient's past medical history: Yes Medical History: Reports:: Diabetes Mellitus Type 2, Gastroesophageal Reflux Disease(GERD), Hypertension, Internal Pacemaker, Kidney Stones Denies:: Cancer, Diabetes Mellitus Type 1, Lung Disease, MRSA, Seizures *Have you ever received a pneumonia vaccine?: Yes *Have you received a flu vaccine this season?: Yes Other Medical History: Reports: Anemia, Arthritis, Fibromyalgia, Hoarseness, Other (neuropathy, allergies). Denies: Blood Transfusion Reaction Laterality Cases: Bilateral: Other Other Surgeries: Yes: Bariatric Surgery, Cholecystectomy, Colonoscopy, C- section, Pacemaker, Tubal Ligation, Other (gastric bypass,gallbladder) Amputation: No Fractures: No - *Social History Smoking Status: Never smoker Alcohol Intake: never Alcohol Intake Frequency:: holidays/special occasions only Substance Use Type: denies use *Occupational Status:: employed, other Housing: house Household Members: spouse *Travel in the last 8 weeks: None Family Hx:: Unable to obtain
== END ==
PROVIDERS: PCP Internal Medicine Adolescent Medicine; Visit Provider Clinical Nurse Specialist Family Health
DX: M54.9 Dorsalgia, unspecified (principal); M54.16 Radiculopathy, lumbar region; M46.1 Sacroiliitis, not elsewhere classified
CPT/HCPCS: 99212; G0463

== ENCOUNTER → 2020-03-30 07:44 | Outpatient (CLI) | payer BC, SELFPAY ==
--- NOTE | 2020-03-30 07:51 | MR_ITS ---
PROCEDURE: MR LUMBAR SPINE WO CON CLINICAL INDICATION: back pain LOW BACK PAIN, BILATERAL SCIATIC NERVE PAIN WORSE ON RIGHT. TINGLING/NUMBNESS DOWN LEG. NO INJURY. PRIOR XRAY 12-17-19 COMPARISON: MR BRAINWW MR head/brain wo/w con from 05/29/2018 DX XR LUMBAR SPINE MIN 4V from 12/17/2019 TECHNIQUE: Standard multiplanar multiecho sequences are performed without contrast. 3-D MIP and myelographic images are also rendered and reviewed FINDINGS: There is normal alignment. The spinal cord ends at the L1 level. L1-L2: Mild left-sided facet and ligamentum hypertrophic change with mild left lateral recess narrowing. L2-L3: Mild left-sided facet hypertrophic change with mild left lateral recess narrowing L3-L4: Mild bilateral facet hypertrophic change. L4-5: Mild bulging disc along with mild to moderate facet and ligamentum hypertrophy with bilateral lateral recess and foraminal narrowing with canal stenosis at 9 mm. L5-S1: Mild bulging disc with facet and ligamentum hypertrophy with borderline canal stenosis and moderate bilateral foraminal narrowing. No extruded herniated disc evident. IMPRESSION: Mild lumbar spondylosis. Please see above for detailed description at each level. No extruded herniated disc. Canal stenosis at L4-5 at 9 mm and borderline canal stenosis at L5-S1 Dictated by: Zoltan Haji MD 03/31/2020 11:15 Zoltan Haji MD in [place] 03/31/2020 11:15
== END ==
PROVIDERS: PCP Internal Medicine Adolescent Medicine; Visit Provider Clinical Nurse Specialist Family Health
DX: M54.5 Low back pain (principal)
CPT/HCPCS: 72148; 76376

== ENCOUNTER 2020-05-10 11:58 | Inpatient (IN) | payer BC, SELFPAY ==
[2020-05-10 12:02] VITALS: O2SAT 98; BMI 44.4
[2020-05-10 12:24] VITALS: BP 123/78; PULSE 121; RESP 18; TEMP 39.3; O2SAT 98; BMI 47.1
--- NOTE | 2020-05-10 12:24 | XR_ITS ---
PROCEDURE: XR CHEST 2V CLINICAL HISTORY: sepsis COMPARISON: CR CXR2V XR chest 2V from 04/06/2018 CR XR CHEST PORTABLE PICC PLAC from 02/12/2019 CR XR CHEST PORTABLE from 12/28/2019 FINDINGS: The cardiomediastinal silhouette and pulmonary vascularity are within normal limits. The lungs are clear without infiltrates, suspicious nodules, or pleural effusions. No acute bony abnormalities. IMPRESSION: No acute findings. Dictated by: Zoltan Haji MD 05/10/2020 15:51 Zoltan Haji MD in [place] 05/10/2020 15:51
--- NOTE | 2020-05-10 12:57 | ECG_ITS ---
APPROVED REPORT Exam: Resting ECG HR:111 bpm ECG Measurements Heart Rate 111 AXES SD 138 P 41 QRSd 64 QRS 107 QT 294 T 32 QTc 399 Conclusion Sinus tachycardia Rightward axis Low voltage QRS Late r wave progression Abnormal ECG Electronically signed by : Flako Merino, 05/11/2020 08:39:15
[2020-05-10 13:02] LABS: Basophils % 0.2 % (0.1-2.0); Eosinophils % 0.2 % (0.1-12.0); Hematocrit 42.1 % (37.0-47.0); Lymphocytes # 0.6 K/mm3 (0.7-4.5); Lymphocytes % 3.5 % (10-50); Mean Corpuscular Hemoglobin 29.5 pg (27.0-31.2); Mean Corpuscular Volume 95.4 fl (81-99); Monocytes # 0.6 K/mm3 (0.1-1.0); Monocytes % 3.7 % (1.7-9.3); Neutrophils # 15.8 K/mm3 (1.8-7.8); Neutrophils % 92.4 % (37.0-80.0); Platelet Count 89 K/mm3 (142-424); Red Blood Count 4.42 M/mm3 (4.20-5.40); Red Cell Distribution Width 13.4 % (11.5-17.5); White Blood Count 17.1 K/mm3 (4.8-10.8)
--- NOTE | 2020-05-10 13:03 | HMH.HP ---
*Admission Date: 05/10/20 *Chief complaint: Cat bite, sepsis *History of present illness: 54-year-old white female with diabetes, morbid obesity who presented to the office with nausea, vomiting and febrile symptoms with chills, of note approximately 2 days ago had a cat bite to her left ankle. She reports the bite was somewhat painful and there is red streaking up into the medial aspect of the left calf. In the office she was found to be tachycardic, nauseated, dry oriented mucosa, admitted to hospital for IV fluids, blood cultures, IV antibiotics as she meets diagnostic criteria for sepsis. [facility] History I have reviewed the patient's past medical history: Yes Medical History: Reports:: Diabetes Mellitus Type 2, Gastroesophageal Reflux Disease(GERD), Hypertension, Internal Pacemaker, Kidney Stones Denies:: Cancer, Diabetes Mellitus Type 1, Lung Disease, MRSA, Seizures *Have you ever received a pneumonia vaccine?: Yes *Have you received a flu vaccine this season?: Yes Other Medical History: Reports: Anemia, Arthritis, Fibromyalgia, Hoarseness, Other (neuropathy, allergies). Denies: Blood Transfusion Reaction Laterality Cases: Bilateral: Other Other Surgeries: Yes: Bariatric Surgery, Cholecystectomy, Colonoscopy, , Pacemaker, Tubal Ligation, Other (gastric bypass,gallbladder) Amputation: No Fractures: No - *Social History Smoking Status: Never smoker Alcohol Intake: never Alcohol Intake Frequency:: holidays/special occasions only Substance Use Type: denies use *Occupational Status:: employed, other Housing: house Household Members: spouse *Travel in the last 8 weeks: None Family Hx:: Unable to obtain Review of Systems - Review of Systems Review of systems:: pertinent systems reviewed and negative unless documented below Meds Home Medications Medication Instructions Recorded Confirmed Type hydrocodone 7.5 mg-acetaminophen 1 tab PO Q8HP PRN 03/26/17 02/28/20 History 325 mg tablet Fluticasone Propionate [Flonase 2 spr NOSTRIL-B DAILY 04/23/17 02/28/20 History 50mcg nasal spray 16gm] ondansetron HCl 4 mg tablet 4 mg PO Q8HP PRN tab 06/11/17 02/28/20 History oxybutynin chloride 5 mg tablet 5 mg PO QID 06/11/17 02/28/20 History Duloxetine HCl 60 mg PO DAILY 02/10/19 02/28/20 History Ergocalciferol (Vitamin D2) 50,000 units PO WEEKLY 02/10/19 02/28/20 History [Drisdol 50,000 units (1.25mg) capsule] Furosemide [Furosemide 40MG tAB*] 40 mg PO DAILY 02/10/19 02/28/20 History Ibuprofen/Famotidine [Duexis 1 tab PO TIDWM 02/10/19 02/28/20 History 800-26.6 mg Tablet] Semaglutide [Ozempic] 0.5 mg SQ WEEKLY 02/10/19 02/28/20 History Albuterol Sulfate [Proair Hfa 2 puffs IH TIDP PRN 02/11/19 02/28/20 History 90mcg/puff Inh] Cyanocobalamin (Vitamin B-12) 1,000 mcg PO DAILY 02/11/19 02/28/20 History [Vitamin B-12] Gabapentin 600 mg PO TID 02/11/19 02/28/20 History Loratadine [Claritin 10mg 10 mg PO DAILY 02/11/19 02/28/20 History Tablet] Metformin HCl 500 mg PO BID 02/11/19 02/28/20 History Ropinirole HCl 1 mg PO HS 02/11/19 02/28/20 History Tizanidine HCl 4 mg PO BIDP PRN 02/11/19 02/28/20 History Ceftriaxone 1 gm [Rocephin 1gm ADV] 1 gm IV DAILY 02/15/19 02/28/20 History Tamsulosin HCl [Flomax 0.4mg 0.4 mg PO HS 02/15/19 02/28/20 History capsule] Fluticasone Propionate [Flonase 2 spr NS DAILY 02/17/19 02/28/20 History 50mcg nasal spray 16gm] predniSONE [Deltasone 10mg tablet] 10 mg PO BID 02/17/19 02/28/20 History Allergies Allergy/AdvReac Type Severity Reaction Status Date / Time levofloxacin [From Levaquin] Allergy hallucinate Verified 02/28/20 15:41 s Penicillins Allergy itching Verified 02/28/20 15:41 Exam Vital signs and Labs for Last 24 Hours: Temp Pulse Resp BP Pulse Ox 102.7 F H 121 H 18 123/78 98 05/10/20 12:24 05/10/20 12:24 05/10/20 12:24 05/10/20 12:24 05/10/20 12:24 I & O for Last 24 hours: Intake & Output 05/08/20 05/09/2005/01
[2020-05-10 13:04] LABS: MANUAL DIFFERENTIAL MANUAL DIFFERENTIAL (MANUAL DIFF)
[2020-05-10 13:11] LABS: Chloride 103 mmol/L (98-107); Potassium 4.7 mmoL/L (3.5-5.1); Sodium 133 mmol/L (136-145)
[2020-05-10 13:13] LABS: Blood Urea Nitrogen 16 mg/dl (7-17); Creatinine Clearance Estimated 68 mL/min (50-200); Estimated Glomerular Filt Rate 66 ml/min (>60); GFR (African American) 80 ML/MIN (>60)
[2020-05-10 13:14] LABS: Alanine Aminotransferase 27 U/L (12-78); Albumin Level 3.4 g/dl (3.5-5.0); Albumin/Globulin Ratio 1.2 (1.1-1.8); Alkaline Phosphatase 104 U/L (38-126); Anion Gap 7.7 mEq/L (5-15); Aspartate Amino Transferase 43 U/L (14-36); Bilirubin,Total 2.2 mg/dl (0.2-1.3); Calcium 8.9 mg/dl (8.4-10.2); Carbon Dioxide 27 mmol/L (22.0-30.0); Globulin 2.8 g/dL (1.3-3.2); Glucose 274 mg/dl (74-100); Lactic Acid 1.3 mmol/L (0.7-2.1); Total Protein,Serum 6.2 g/dl (6.3-8.2)
[2020-05-10 13:40] LABS: Lymphocytes % 4 % (10-50); Monocytes % 8 % (2-9); Neutrophils % 86 % (42-76); Platelet Estimate Marked Decrease; Total Cells Counted 100
[2020-05-10 13:41] LABS: RBC Morphology Normal
--- NOTE | 2020-05-10 13:50 | HMH.PHACONS ---
- Pharmacy Consult Date: 05/10/20 Time: 13:50 Referring provider: DR. TIJERINA Reason for Consult:: VANCOMYCIN DOSING Allergies and ADEs:: Allergies Allergy/AdvReac Type Severity Reaction Status Date / Time levofloxacin [From Levaquin] Allergy hallucinate Verified 02/28/20 15:41 s Penicillins Allergy itching Verified 02/28/20 15:41 Home Medications:: Home Medications Medication Instructions Recorded Confirmed Type hydrocodone 7.5 mg-acetaminophen 1 tab PO Q8HP PRN 03/26/17 02/28/20 History 325 mg tablet Fluticasone Propionate [Flonase 2 spr NOSTRIL-B DAILY 04/23/17 02/28/20 History 50mcg nasal spray 16gm] ondansetron HCl 4 mg tablet 4 mg PO Q8HP PRN tab 06/11/17 02/28/20 History oxybutynin chloride 5 mg tablet 5 mg PO QID 06/11/17 02/28/20 History Duloxetine HCl 60 mg PO DAILY 02/10/19 02/28/20 History Ergocalciferol (Vitamin D2) 50,000 units PO WEEKLY 02/10/19 02/28/20 History [Drisdol 50,000 units (1.25mg) capsule] Furosemide [Furosemide 40MG tAB*] 40 mg PO DAILY 02/10/19 02/28/20 History Ibuprofen/Famotidine [Duexis 1 tab PO TIDWM 02/10/19 02/28/20 History 800-26.6 mg Tablet] Semaglutide [Ozempic] 0.5 mg SQ WEEKLY 02/10/19 02/28/20 History Albuterol Sulfate [Proair Hfa 2 puffs IH TIDP PRN 02/11/19 02/28/20 History 90mcg/puff Inh] Cyanocobalamin (Vitamin B-12) 1,000 mcg PO DAILY 02/11/19 02/28/20 History [Vitamin B-12] Gabapentin 600 mg PO TID 02/11/19 02/28/20 History Loratadine [Claritin 10mg 10 mg PO DAILY 02/11/19 02/28/20 History Tablet] Metformin HCl 500 mg PO BID 02/11/19 02/28/20 History Ropinirole HCl 1 mg PO HS 02/11/19 02/28/20 History Tizanidine HCl 4 mg PO BIDP PRN 02/11/19 02/28/20 History Ceftriaxone 1 gm [Rocephin 1gm ADV] 1 gm IV DAILY 02/15/19 02/28/20 History Tamsulosin HCl [Flomax 0.4mg 0.4 mg PO HS 02/15/19 02/28/20 History capsule] Fluticasone Propionate [Flonase 2 spr NS DAILY 02/17/19 02/28/20 History 50mcg nasal spray 16gm] predniSONE [Deltasone 10mg tablet] 10 mg PO BID 02/17/19 02/28/20 History Height: 1.68 m Weight: 132.506 kg Laboratory Results:: Laboratory Results - last 24 hr 05/10/20 12:30: WBC 17.1 H, RBC 4.42, Hgb 13.0, Hct 42.1, MCV 95.4, MCH 29.5, MCHC 31.0 L, RDW 13.4, Plt Count 89 L, MPV 10.0, Neut % (Auto) 92.4 H, Lymph % (Auto) 3.5 L, [place] % (Auto) 3.7, Eos % (Auto) 0.2, Baso % (Auto) 0.2, Neut # (Auto) 15.8 H, Lymph # (Auto) 0.6 L, [place] # (Auto) 0.6, Eos # (Auto) 0.0, Baso # (Auto) 0.0, Total Counted 100, Neutrophils % (Manual) 86 H, Band Neutrophils % 2.0, Lymphocytes % (Manual) 4 L, Monocytes % (Manual) 8, Platelet Estimate Marked decrease, RBC Morphology Normal 05/10/20 12:30: Sodium 133 L, Potassium 4.7, Chloride 103, Carbon Dioxide 27, Anion Gap 7.7, BUN 16, Creatinine 0.90, Estimated Creat Clear 68, Estimated GFR 66, Est GFR ( Amer) 80, Glucose 274 H, Calcium 8.9, Total Bilirubin 2.2 H, AST 43 H, ALT 27, Alkaline Phosphatase 104, Total Protein 6.2 L, Albumin 3.4 L, Globulin 2.8, Albumin/Globulin Ratio 1.2 05/10/20 12:30: Lactate 1.3 Medical History: Reports:: Diabetes Mellitus Type 2, Gastroesophageal Reflux Disease(GERD), Hypertension, Internal Pacemaker, Kidney Stones Denies:: Cancer, Diabetes Mellitus Type 1, Lung Disease, MRSA, Seizures Assessment and Plan (1) Cellulitis Status: Acute Category: Medical Code(s): L03.90 - Cellulitis, unspecified (2) Cat bite of ankle Status: Acute Category: Medical Code(s): S91.059A - Open bite, unspecified ankle, initial encounter; W55.01XA - Bitten by cat, initial encounter (3) Sepsis Status: Acute Category: Medical Code(s): A41.9 - Sepsis, unspecified organism (4) Diabetes mellitus type 2 in obese Status: Acute Category: Medical Code(s): E11.69 - Type 2 diabetes mellitus with other specified complication; E66.9 - Obesity, unspecified - Assessment and plan all Dx Assessment and Plan for all problems:: BASED ON PATIENT FACTORS, RECOMM
--- NOTE | 2020-05-10 13:56 | P.CONPHA_ITS ---
[facility] Pharmacy VTE Monitoring - Patient Demographics Admission date: 05/10/20 Report Date: 05/10/20 Time: 13:56 Allergies/Adverse Reactions: Patient Allergies levofloxacin [From Levaquin] Allergy (Verified 02/28/20 15:41) hallucinates Penicillins Allergy (Verified 02/28/20 15:41) itching Height: 1.68 m Weight: 132.506 kg Patient Problems: Current Active Problems Cellulitis (Acute) Cat bite of ankle (Acute) Sepsis (Acute) Diabetes mellitus type 2 in obese (Acute) - VTE Risk Labs: VTE Related Lab Results Hgb 13.0 g/dL (12.2-16.2) 05/10/20 12:30 Hct 42.1 % (37.0-47.0) 05/10/20 12:30 Plt Count 89 K/mm3 (142-424) L 05/10/20 12:30 BUN 16 mg/dl (7-17) 05/10/20 12:30 Creatinine 0.90 mg/dl (0.52-1.04) 05/10/20 12:30 Estimated Creat Clear 68 mL/min (50-200) 05/10/20 12:30 - Prophylaxis VTE Prophylaxis Ordered?: Yes Types of VTE Prophylaxis: Pharmacological Pharmacologic Type: Enoxaparin
[2020-05-10 14:13] VITALS: RESP 16
[2020-05-10 15:54] VITALS: BP 129/76; PULSE 104; RESP 18; TEMP 37.8; O2SAT 98
--- NOTE | 2020-05-10 16:24 | HMH.PTWOUND ---
Rehab Inpt Wound Evaluation Rehab IP Wound Evaluation Start: 05/10/20 15:20 Freq: ONCE Status: Complete Protocol: Document 05/10/20 16:13 [email or web address] (Rec: 05/10/20 16:24 [email or web address] [id number]) Rehab PT Wound Assessment Patient Status Premedicated Prior to Dressing Change No Subjective Subjective This is the initial IP PT wound evaluation for Dipti Cosby. Pt is a 54 y/o female admitted to [facility] thru Ed for cellulitis related to a cat bite. Pt rpeorts she was getting ready for work na dwas in her closet. Pt reports as she stepped out she stepped on her cat's tail and was bitten on L lower medial calf. Wound Right Lower Anterior [place] Wound Type Scratch Wound Length (cm) 1.0 Wound Width (cm) 1.0 Wound Bed Appearance Beefy Red Percentage Granulated (%) 100 Wound Margins Description Well Defined Surrounding Tissue Appearance Dark Red Surrounding Tissue Temperature Warm Wound Drainage Description None Drainage Amount None Drainage Odor No Odor Dressing Status Open to Air Primary Dressing polymem dot Wound Debridement Amount of Tissue None Removed Dressing Change Patient Tolerance Tolerated Well Left Lower Posterior Calf Wound Type cat bite Wound Length (cm) 0.1 Wound Width (cm) 1.0 Wound Bed Appearance Beefy Red Percentage Granulated (%) 100 Wound Margins Description Well Defined Surrounding Tissue Appearance Bright Red,Purple Surrounding Tissue Temperature Hot Wound Drainage Description None Drainage Amount None Drainage Odor No Odor Dressing Status Open to Air Wound Topical Solution/Irrigant Antibiotic Irrigant Primary Dressing polymem dot Dressing Change Date 05/10/20 Dressing Change Patient Tolerance Tolerated Well Left Lower Anterior Calf Wound Type cat bite Wound Length (cm) 0.1 Wound Width (cm) 0.6 Percentage Granulated (%) 100 Surrounding Tissue Appearance Purple Surrounding Tissue Temperature Warm Wound Drainage Description None Drainage Amount None Drainage Odor No Odor Dressing Status Open to Air Wound Topical Solution/Irrigant Antibiotic Irrigant Primary Dressing
--- NOTE | 2020-05-10 18:46 | PC.NURSE ---
Pt has rested @ intervals since arriving to floor. Is A&O x 4. During admission noted that pt had difficulty finding words and said this is normal for her. Remains on room air. Lungs CTA. HR regular. +2 edema present to BLE. Cellulitis noted L Calf, eval by PT. Abdomen soft, non-tender w/ active BS in all quads. Independent w/ adl's. Reports poor appetite, but has ate over 50% of tray thus far. Voiding w/o difficulty. Urine sent to lab this shift. Currently sitting up in bed on cell phone. Pain med given per MAY for chronic back/ leg pain. VSS. Call rob w/in reach.
[2020-05-10 19:38] LABS: POC Glucose,Bedside 147 (70-110)
[2020-05-10 19:43] LABS: Microscopic, Urine URINE MICROSCOPIC (MICROSCOPIC)
[2020-05-10 19:54] LABS: Appearance,Urine CLOUDY (Clear); Bilirubin,Urine Negative (Negative); Blood, Urine Negative (Negative); Color,Urine YELLOW (Yellow); Glucose,Urine (UA) TRACE (Negative); Ketones,Urine Negative (Negative); Leukocyte Esterase,Urine TRACE (Negative); Nitrate,Urine POSITIVE (Negative); Protein,Urine Negative (Negative); Specific Gravity, Urine 1.025 (1.005-1.030)
[2020-05-10 20:00] VITALS: BP 127/67; PULSE 107; RESP 17; TEMP 37.9; O2SAT 94
[2020-05-10 20:23] LABS: Bacteria,Urine 4+ /lpf
[2020-05-11 00:07] LABS: POC Glucose,Bedside 362 (70-110)
--- NOTE | 2020-05-11 03:48 | PC.NURSE ---
Pt A&O x4 and has slept on and off through the night. Pt has c/o pain in her left foot and lower back. [place] given per mar with little relief. Lower left leg reddened and hot to touch. Drsg in place over open areas on LLE, c/d/i. Lungs are CTA, on room air. Bowel sounds x4, abd soft and nontender. IV patent, NS @150. Pt up to chair for most of night hoping to relieve back pain. VSS, call light in reach, no concerns at this time.
[2020-05-11 04:00] VITALS: BP 144/63; PULSE 95; RESP 17; TEMP 37; O2SAT 93
[2020-05-11 04:47] VITALS: BMI 46.9
[2020-05-11 05:54] LABS: POC Glucose,Bedside 139 (70-110)
[2020-05-11 07:01] LABS: Basophils % 0.1 % (0.1-2.0); Eosinophils # 0.1 K/mm3 (0.0-0.4); Eosinophils % 0.6 % (0.1-12.0); Hematocrit 35.1 % (37.0-47.0); Lymphocytes # 1.2 K/mm3 (0.7-4.5); Lymphocytes % 12.9 % (10-50); Mean Corpuscular HGB Conc 31.7 g/dL (31.8-35.4); Mean Corpuscular Hemoglobin 30.1 pg (27.0-31.2); Mean Corpuscular Volume 95.1 fl (81-99); Mean Platelet Volume 10.2 fl (7.4-10.4); Monocytes # 0.5 K/mm3 (0.1-1.0); Monocytes % 5.2 % (1.7-9.3); Neutrophils # 7.7 K/mm3 (1.8-7.8); Neutrophils % 81.1 % (37.0-80.0); Platelet Count 81 K/mm3 (142-424); Red Blood Count 3.69 M/mm3 (4.20-5.40); Red Cell Distribution Width 13.6 % (11.5-17.5); White Blood Count 9.4 K/mm3 (4.8-10.8)
[2020-05-11 07:07] LABS: Alanine Aminotransferase 22 U/L (12-78); Albumin Level 2.7 g/dl (3.5-5.0); Albumin/Globulin Ratio 1.1 (1.1-1.8); Alkaline Phosphatase 77 U/L (38-126); Aspartate Amino Transferase 36 U/L (14-36); Blood Urea Nitrogen 19 mg/dl (7-17); Carbon Dioxide 22 mmol/L (22.0-30.0); Chloride 107 mmol/L (98-107); Creatinine Clearance Estimated 68 mL/min (50-200); Estimated Glomerular Filt Rate 66 ml/min (>60); GFR (African American) 80 ML/MIN (>60); Globulin 2.4 g/dL (1.3-3.2); Glucose 153 mg/dl (74-100); Potassium 3.5 mmoL/L (3.5-5.1); Total Protein,Serum 5.1 g/dl (6.3-8.2)
[2020-05-11 07:31] LABS: Hemoglobin 11.1 g/dL (12.2-16.2)
[2020-05-11 07:32] LABS: Anion Gap 8.5 mEq/L (5-15); Sodium 134 mmol/L (136-145)
--- NOTE | 2020-05-11 07:48 | HMH.ACPN2 ---
Internal Medicine - PN: Subj *Date: 05/11/20 *Time: 07:48 Interval history: Overall patient feels better. No dyspnea, good oral intake. Exam Vital signs and Labs for Last 24 Hours: Temp Pulse Resp BP Pulse Ox 98.6 F 95 H 17 144/63 H 93 L 05/11/20 04:00 05/11/20 04:00 05/11/20 04:00 05/11/20 04:00 05/11/20 04:00 Laboratory Results - last 24 hr 05/10/20 12:30: WBC 17.1 H, RBC 4.42, Hgb 13.0, Hct 42.1, MCV 95.4, MCH 29.5, MCHC 31.0 L, RDW 13.4, Plt Count 89 L, MPV 10.0, Neut % (Auto) 92.4 H, Lymph % (Auto) 3.5 L, [place] % (Auto) 3.7, Eos % (Auto) 0.2, Baso % (Auto) 0.2, Neut # (Auto) 15.8 H, Lymph # (Auto) 0.6 L, [place] # (Auto) 0.6, Eos # (Auto) 0.0, Baso # (Auto) 0.0, Total Counted 100, Neutrophils % (Manual) 86 H, Band Neutrophils % 2.0, Lymphocytes % (Manual) 4 L, Monocytes % (Manual) 8, Platelet Estimate Marked decrease, RBC Morphology Normal 05/10/20 12:30: Sodium 133 L, Potassium 4.7, Chloride 103, Carbon Dioxide 27, Anion Gap 7.7, BUN 16, Creatinine 0.90, Estimated Creat Clear 68, Estimated GFR 66, Est GFR ( Amer) 80, Glucose 274 H, Calcium 8.9, Total Bilirubin 2.2 H, AST 43 H, ALT 27, Alkaline Phosphatase 104, Total Protein 6.2 L, Albumin 3.4 L, Globulin 2.8, Albumin/Globulin Ratio 1.2 05/10/20 12:30: Lactate 1.3 05/10/20 15:47: POC Glucose 362 H* 05/10/20 18:48: Urine Color Yellow, Urine Appearance Cloudy, Urine pH 6.0, Ur Specific [place] 1.025, Urine Protein Negative, Urine Glucose (UA) Trace, Urine Ketones Negative, Urine Blood Negative, Urine Nitrate Positive, Urine Bilirubin Negative, Urine Urobilinogen 1.0, Ur Leukocyte Esterase Trace, Urine Bacteria 4+ 05/10/20 19:30: POC Glucose 147 H 05/11/20 05:17: POC Glucose 139 H 05/11/20 06:52: WBC 9.4 D, RBC 3.69 L, Hgb 11.1 L D, Hct 35.1 L, MCV 95.1, MCH 30.1, MCHC 31.7 L, RDW 13.6, Plt Count 81 L, MPV 10.2, Neut % (Auto) 81.1 H, Lymph % (Auto) 12.9, [place] % (Auto) 5.2, Eos % (Auto) 0.6, Baso % (Auto) 0.1, Neut # (Auto) 7.7, Lymph # (Auto) 1.2, [place] # (Auto) 0.5, Eos # (Auto) 0.1, Baso # (Auto) 0.0 05/11/20 06:52: Sodium 134 L, Potassium 3.5 D, Chloride 107, Carbon Dioxide 22, Anion Gap 8.5, BUN 19 H, Creatinine 0.90, Estimated Creat Clear 68, Estimated GFR 66, Est GFR ( Amer) 80, Glucose 153 H D, Calcium 8.0 L D, Total Bilirubin 2.0 H, AST 36, ALT 22, Alkaline Phosphatase 77, Total Protein 5.1 L, Albumin 2.7 L D, Globulin 2.4, Albumin/Globulin Ratio 1.1 I & O for Last 24 hours: Intake & Output 05/08/20 05/09/20 05/10/20 05/11/20 11:59 11:59 11:59 11:59 Intake Total 480 / 480 Balance 480 / 480 Weight 292 lb Microbiology Reports for the Last 24 Hours: Microbiology 05/10/20 18:48 Urine,Clean Catch Urine Culture - Preliminary Gram Negative Rods 05/10/20 12:47 Nasopharyngeal Coronavirus COVID-19 PCR - Final Narrative: Hydration status appears better. Lungs are clear, heart rate regular, oropharynx clear. No JVD. Wound looks improved with less redness, physical therapy has bandaged the wound. Red streaking is improving Assessment and Plan (1) Cellulitis Status: Acute Category: Medical Code(s): L03.90 - Cellulitis, unspecified (2) Cat bite of ankle Status: Acute Category: Medical Code(s): S91.059A - Open bite, unspecified ankle, initial encounter; W55.01XA - Bitten by cat, initial encounter (3) Sepsis Status: Acute Category: Medical Code(s): A41.9 - Sepsis, unspecified organism (4) Diabetes mellitus type 2 in obese Status: Acute Category: Medical Code(s): E11.69 - Type 2 diabetes mellitus with other specified complication; E66.9 - Obesity, unspecified (5) UTI (urinary tract infection) Status: Acute Category: Medical Code(s): N39.0 - Urinary tract infection, site not specified - Assessment and plan all Dx Assessment and Plan for all problems:: Sepsis is improving. White count improving. Continue antibiotics. Await blood cultures, gram-negative penny i
[2020-05-11 08:00] VITALS: BP 116/66; PULSE 98; RESP 17; TEMP 36.8; O2SAT 96
--- NOTE | 2020-05-11 10:59 | HMH.PHAINT ---
clarified home medication list with patient and list form [facility]
[2020-05-11 11:11] VITALS: RESP 16
[2020-05-11 11:26] LABS: POC Glucose,Bedside 136 (70-110)
[2020-05-11 15:28] VITALS: BP 129/88; PULSE 110; RESP 18; TEMP 36.8; O2SAT 100
[2020-05-11 16:15] LABS: POC Glucose,Bedside 112 (70-110)
--- NOTE | 2020-05-11 16:50 | PC.NURSE ---
Pt has been up to chair majority of shift. Remains on room air. Lungs CTA. HR regular. Bilat +2 edema noted to lower extremities. Erythema noted to L calf, polymems changed this shift to wound. Is independent w/ adl's. Showered this shift. Complains of chronic pain in back and legs, [place] given per MAY. She requests something for sleep tonight, orders received for 50 mg Trazadone QHS. VSS. Remains afebrile. Call rob w/in reach.
[2020-05-11 20:00] VITALS: BP 101/76; PULSE 89; RESP 22; TEMP 36.7; O2SAT 98
[2020-05-11 20:21] LABS: POC Glucose,Bedside 209 (70-110)
[2020-05-12 04:00] VITALS: BP 92/53; PULSE 86; RESP 17; TEMP 36.5; O2SAT 95
--- NOTE | 2020-05-12 04:08 | PC.NURSE ---
Pt A&O x4 and has slept on and off through the night. Pt c/o pain in back and LLE, [place], tylenol, and ibuprofen given per mar. Pt said she is starting to feel better. Pt able to ambulate independently to the bathroom. Lungs CTA, on room air. bowel sounds x4, abd soft and nontender. VSS, call light in reach, no concerns at this time.
[2020-05-12 05:30] LABS: POC Glucose,Bedside 150 (70-110)
--- NOTE | 2020-05-12 06:25 | HMH.ACPN2 ---
Internal Medicine - PN: Subj *Date: 05/12/20 *Time: 08:45 Interval history: Ms. Cosby did well overnight. Remained afebrile. Urine culture showing UTI, gram-negative rods. Denies any nausea, vomiting, shortness of breath. Feeling volume overloaded. Has some increased edema. Leg wound improving. Exam Vital signs and Labs for Last 24 Hours: Temp Pulse Resp BP Pulse Ox 97.7 F 86 17 92/53 L 95 05/12/20 04:00 05/12/20 04:00 05/12/20 04:00 05/12/20 04:00 05/12/20 04:00 Laboratory Results - last 24 hr 05/10/20 18:48: Urine Color Yellow, Urine Appearance Cloudy, Urine pH 6.0, Ur Specific Ava 1.025, Urine Protein Negative, Urine Glucose (UA) Trace, Urine Ketones Negative, Urine Blood Negative, Urine Nitrate Positive, Urine Bilirubin Negative, Urine Urobilinogen 1.0, Ur Leukocyte Esterase Trace, Urine Bacteria 4+ 05/11/20 06:52: WBC 9.4 D, RBC 3.69 L, Hgb 11.1 L D, Hct 35.1 L, MCV 95.1, MCH 30.1, MCHC 31.7 L, RDW 13.6, Plt Count 81 L, MPV 10.2, Neut % (Auto) 81.1 H, Lymph % (Auto) 12.9, [place] % (Auto) 5.2, Eos % (Auto) 0.6, Baso % (Auto) 0.1, Neut # (Auto) 7.7, Lymph # (Auto) 1.2, [place] # (Auto) 0.5, Eos # (Auto) 0.1, Baso # (Auto) 0.0 05/11/20 06:52: Sodium 134 L, Potassium 3.5 D, Chloride 107, Carbon Dioxide 22, Anion Gap 8.5, BUN 19 H, Creatinine 0.90, Estimated Creat Clear 68, Estimated GFR 66, Est GFR ( Amer) 80, Glucose 153 H D, Calcium 8.0 L D, Total Bilirubin 2.0 H, AST 36, ALT 22, Alkaline Phosphatase 77, Total Protein 5.1 L, Albumin 2.7 L D, Globulin 2.4, Albumin/Globulin Ratio 1.1 05/11/20 11:10: POC Glucose 136 H 05/11/20 16:08: POC Glucose 112 H 05/11/20 20:06: POC Glucose 209 H 05/12/20 05:09: POC Glucose 150 H I & O for Last 24 hours: Intake & Output 05/09/20 05/10/20 05/11/20 05/12/20 23:59 23:59 23:59 23:59 Intake Total 480 / 480 600 / 600 Output Total 650 / 650 Balance 480 / 480 -50 / -50 Weight 132.506 kg 132.449 kg Microbiology Reports for the Last 24 Hours: Microbiology 05/10/20 12:30 Blood Blood Culture - Preliminary 05/10/20 18:48 Urine,Clean Catch Urine Culture - Preliminary Gram Negative Rods - Constitutional no acute distress, obese - *Routine HEENT Exam Head: Present: normocephalic Eye: Present: EOMI, PERRL ENT: Present: mucous membranes moist - *Routine Neck Exam Present: supple. Absent: lymphadenopathy - *Routine Respiratory Exam Present: CTA bilaterally - *Routine Cardiovascular Exam Present: RRR - *Routine Abdominal Exam Present: soft, normoactive bowel sounds. Absent: tenderness - *Routine Extremities Exam Absent: cyanosis, clubbing, edema - *Routine Skin Exam Present: warm, wounds (left lower extremity, minimal surrounding erythema). Absent: rash - *Routine Neurological Exam Present: alert, oriented X3 Assessment and Plan (1) Cellulitis Status: Acute Category: Medical Code(s): L03.90 - Cellulitis, unspecified (2) Cat bite of ankle Status: Acute Category: Medical Code(s): S91.059A - Open bite, unspecified ankle, initial encounter; W55.01XA - Bitten by cat, initial encounter (3) Sepsis Status: Acute Category: Medical Code(s): A41.9 - Sepsis, unspecified organism (4) Diabetes mellitus type 2 in obese Status: Acute Category: Medical Code(s): E11.69 - Type 2 diabetes mellitus with other specified complication; E66.9 - Obesity, unspecified (5) UTI (urinary tract infection) Status: Acute Category: Medical Code(s): N39.0 - Urinary tract infection, site not specified - Assessment and plan all Dx Assessment and Plan for all problems:: 54-year-old female with sepsis, cat bite left lower leg, UTI. Still awaiting cultures to speciate with sensitivity to de-escalate antibiotic regimen. Discontinue IV fluids today. Once able to narrow antibiotics and transition to oral regimen, patient will be stable for discharge home. Anticipate discharge tomorrow with
[2020-05-12 07:56] LABS: Basophils % 0.2 % (0.1-2.0); Eosinophils # 0.1 K/mm3 (0.0-0.4); Eosinophils % 2.2 % (0.1-12.0); Hematocrit 32.4 % (37.0-47.0); Hemoglobin 10.6 g/dL (12.2-16.2); Lymphocytes # 0.9 K/mm3 (0.7-4.5); Lymphocytes % 28.4 % (10-50); Mean Corpuscular HGB Conc 32.8 g/dL (31.8-35.4); Mean Corpuscular Hemoglobin 30.4 pg (27.0-31.2); Mean Corpuscular Volume 92.7 fl (81-99); Mean Platelet Volume 11.2 fl (7.4-10.4); Monocytes # 0.2 K/mm3 (0.1-1.0); Monocytes % 6.4 % (1.7-9.3); Neutrophils % 62.8 % (37.0-80.0); Platelet Count 69 K/mm3 (142-424); Red Blood Count 3.49 M/mm3 (4.20-5.40); Red Cell Distribution Width 13.7 % (11.5-17.5); White Blood Count 3.2 K/mm3 (4.8-10.8)
[2020-05-12 08:00] VITALS: BP 90/54; PULSE 77; RESP 17; TEMP 36.8; O2SAT 97
[2020-05-12 08:04] LABS: Anion Gap 9.1 mEq/L (5-15); Blood Urea Nitrogen 19 mg/dl (7-17); Calcium 7.8 mg/dl (8.4-10.2); Carbon Dioxide 20 mmol/L (22.0-30.0); Chloride 111 mmol/L (98-107); Creatinine Clearance Estimated 77 mL/min (50-200); Estimated Glomerular Filt Rate 75 ml/min (>60); GFR (African American) 91 ML/MIN (>60); Glucose 152 mg/dl (74-100); Potassium 4.1 mmoL/L (3.5-5.1); Sodium 136 mmol/L (136-145)
[2020-05-12 12:00] LABS: POC Glucose,Bedside 197 (70-110)
[2020-05-12 13:43] VITALS: BMI 46.7
[2020-05-12 15:07] LABS: Vancomycin,Trough 18.8 ug/mL (5.0-10.0)
--- NOTE | 2020-05-12 15:25 | HMH.PHACONS ---
- Pharmacy Consult Date: 05/12/20 Time: 15:25 Referring provider: DR. TIJERINA Reason for Consult:: BASED ON PATIENT FACTORS AND VANCOMYCIN TROUGH LEVEL, RECOMMEND CONTINUING VANCOMYCIN 2 GM IV Q12H. PHARMACY WILL CONTINUE TO MONITOR DAILY AND ADJUST APPROPRIATE. Allergies and ADEs:: Allergies Allergy/AdvReac Type Severity Reaction Status Date / Time levofloxacin [From Levaquin] Allergy hallucinate Verified 02/28/20 15:41 s Penicillins Allergy itching Verified 02/28/20 15:41 Home Medications:: Home Medications Medication Instructions Recorded Confirmed Type hydrocodone 7.5 mg-acetaminophen 1 tab PO Q8HP PRN 03/26/17 05/10/20 History 325 mg tablet ondansetron HCl 4 mg tablet 4 mg PO Q8HP PRN tab 06/11/17 05/10/20 History oxybutynin chloride 5 mg tablet 5 mg PO QID 06/11/17 05/11/20 History Duloxetine HCl 60 mg PO DAILY 02/10/19 05/10/20 History Ergocalciferol (Vitamin D2) 50,000 units PO WEEKLY 02/10/19 05/10/20 History [Drisdol 50,000 units (1.25mg) capsule] Furosemide [Furosemide 40MG tAB*] 40 mg PO DAILYP PRN 02/10/19 05/11/20 History Ibuprofen/Famotidine [Duexis 1 tab PO TIDWM PRN 02/10/19 05/10/20 History 800-26.6 mg Tablet] Semaglutide [Ozempic] 0.5 mg SQ WEEKLY 02/10/19 05/10/20 History Albuterol Sulfate [Proair Hfa 2 puffs IH TIDP PRN 02/11/19 05/10/20 History 90mcg/puff Inh] Gabapentin 600 mg PO QID 02/11/19 05/11/20 History Loratadine [Claritin 10mg 10 mg PO DAILY 02/11/19 05/10/20 History Tablet] Ropinirole HCl 1 mg PO HSP PRN 02/11/19 05/11/20 History Tizanidine HCl 4 mg PO BIDP PRN 02/11/19 05/10/20 History Fluticasone Propionate [Flonase 2 spr NS DAILY 02/17/19 05/10/20 History 50mcg nasal spray 16gm] Amitriptyline HCl [Elavil 50mg 50 mg PO HS 05/11/20 05/11/20 History tablet] Height: 1.68 m Weight: 132 kg Laboratory Results:: Laboratory Results - last 24 hr 05/10/20 12:30: Lactate 1.3 05/11/20 16:08: POC Glucose 112 H 05/11/20 20:06: POC Glucose 209 H 05/12/20 05:09: POC Glucose 150 H 05/12/20 07:45: WBC 3.2 L D, RBC 3.49 L, Hgb 10.6 L, Hct 32.4 L, MCV 92.7, MCH 30.4, MCHC 32.8, RDW 13.7, Plt Count 69 L, MPV 11.2 H, Neut % (Auto) 62.8, Lymph % (Auto) 28.4, [place] % (Auto) 6.4, Eos % (Auto) 2.2, Baso % (Auto) 0.2, Neut # (Auto) 2.0, Lymph # (Auto) 0.9, [place] # (Auto) 0.2, Eos # (Auto) 0.1, Baso # (Auto) 0.0 05/12/20 07:45: Sodium 136, Potassium 4.1, Chloride 111 H, Carbon Dioxide 20 L, Anion Gap 9.1, BUN 19 H, Creatinine 0.80, Estimated Creat Clear 77, Estimated GFR 75, Est GFR ( Amer) 91, Glucose 152 H, Calcium 7.8 L 05/12/20 11:03: POC Glucose 197 H 05/12/20 14:29: Vancomycin Trough 18.8 H Medical History: Reports:: Diabetes Mellitus Type 2, Gastroesophageal Reflux Disease(GERD), Hypertension, Internal Pacemaker, Kidney Stones Denies:: Cancer, Diabetes Mellitus Type 1, Lung Disease, MRSA, Seizures Assessment and Plan (1) Cellulitis Status: Acute Category: Medical Code(s): L03.90 - Cellulitis, unspecified (2) Cat bite of ankle Status: Acute Category: Medical Code(s): S91.059A - Open bite, unspecified ankle, initial encounter; W55.01XA - Bitten by cat, initial encounter (3) Sepsis Status: Acute Category: Medical Code(s): A41.9 - Sepsis, unspecified organism (4) Diabetes mellitus type 2 in obese Status: Acute Category: Medical Code(s): E11.69 - Type 2 diabetes mellitus with other specified complication; E66.9 - Obesity, unspecified (5) UTI (urinary tract infection) Status: Acute Category: Medical Code(s): N39.0 - Urinary tract infection, site not specified
[2020-05-12 16:00] VITALS: BP 101/60; PULSE 78; RESP 18; TEMP 36.3; O2SAT 98
[2020-05-12 17:12] LABS: POC Glucose,Bedside 174 (70-110)
--- NOTE | 2020-05-12 18:40 | PC.NURSE ---
SHE IS AOX4, ABLE TO MAKE NEEDS KNOWN TO STAFF, TOLERATING ROOM AIR WELL, HAS BEEN UP TO CHAIR FOR MOST OF SHIFT.
[2020-05-12 19:58] VITALS: BP 132/68; PULSE 83; RESP 17; TEMP 36.4; O2SAT 99
[2020-05-12 20:00] VITALS: O2SAT 99
[2020-05-12 20:41] LABS: POC Glucose,Bedside 135 (70-110)
--- NOTE | 2020-05-12 22:17 | PC.NURSE ---
She is A&Ox4. She is sitting up in her chair and states that she prefers to sleep in the chair. Left foot with 2+ non-pitting edema and right foot with 1+ non-pitting edema. LLE has erythema and two DSG on the medial aspect of her leg. She continues on RA. Denies pain.
[2020-05-13 04:00] VITALS: BP 103/61; PULSE 69; RESP 18; TEMP 36.5; O2SAT 97
[2020-05-13 04:13] VITALS: BMI 48.7
[2020-05-13 04:53] LABS: POC Glucose,Bedside 125 (70-110)
[2020-05-13 07:10] LABS: Basophils % 0.4 % (0.1-2.0); Eosinophils # 0.1 K/mm3 (0.0-0.4); Eosinophils % 2.4 % (0.1-12.0); Hematocrit 35.8 % (37.0-47.0); Hemoglobin 11.3 g/dL (12.2-16.2); Lymphocytes # 0.7 K/mm3 (0.7-4.5); Lymphocytes % 31.4 % (10-50); Mean Corpuscular HGB Conc 31.7 g/dL (31.8-35.4); Mean Corpuscular Hemoglobin 29.6 pg (27.0-31.2); Mean Corpuscular Volume 93.5 fl (81-99); Mean Platelet Volume 10.2 fl (7.4-10.4); Monocytes # 0.1 K/mm3 (0.1-1.0); Monocytes % 6.1 % (1.7-9.3); Neutrophils # 1.3 K/mm3 (1.8-7.8); Neutrophils % 59.7 % (37.0-80.0); Platelet Count 75 K/mm3 (142-424); Red Blood Count 3.83 M/mm3 (4.20-5.40); Red Cell Distribution Width 13.5 % (11.5-17.5); White Blood Count 2.2 K/mm3 (4.8-10.8)
[2020-05-13 07:14] LABS: Anion Gap 8.5 mEq/L (5-15); Blood Urea Nitrogen 16 mg/dl (7-17); Calcium 8.4 mg/dl (8.4-10.2); Carbon Dioxide 25 mmol/L (22.0-30.0); Chloride 111 mmol/L (98-107); Creatinine Clearance Estimated 68 mL/min (50-200); Estimated Glomerular Filt Rate 66 ml/min (>60); GFR (African American) 80 ML/MIN (>60); Glucose 126 mg/dl (74-100); Potassium 4.5 mmoL/L (3.5-5.1); Sodium 140 mmol/L (136-145)
[2020-05-13 08:00] VITALS: BP 150/56; PULSE 95; RESP 20; TEMP 36.5; O2SAT 100
--- NOTE | 2020-05-13 08:28 | HMH.DCSUM ---
General - General Admission date:: 05/10/20 Discharge date: 05/13/20 HPI HPI: 54-year-old white female with diabetes, morbid obesity who presented to the office with nausea, vomiting and febrile symptoms with chills, of note approximately 2 days ago had a cat bite to her left ankle. She reports the bite was somewhat painful and there is red streaking up into the medial aspect of the left calf. In the office she was found to be tachycardic, nauseated, dry oriented mucosa, admitted to hospital for IV fluids, blood cultures, IV antibiotics as she meets diagnostic criteria for sepsis. Hospital Course Hospital Course: Ms. Cosby was admitted for UTI and cellulitis of her lower leg. Met sepsis criteria on admission. Noted to grow Klebsiella in her urine. Single blood culture and anaerobic bottle grew staph intermedius (determined to be contaminant). Tolerated her broad-spectrum IV antibiotic regimen well during admission. Sepsis resolved within the first 24 hours. Patient unfortunately developed some edema during admission necessitating diuresis with daily Lasix. Overall doing better by day of discharge. Remained afebrile, stable on room air. Given sensitivities of urine culture, transition to Bactrim. Will treat twice a day for the next week to cover both urinary source as well as cellulitis in her lower leg from cat bite. We will plan for close follow-up with her in the office later this week to assess response to antibiotics and resolution of her symptoms. Recommended Lasix daily for the next 3 days to address volume status and edema. Patient has this medication at home already. Denies chest pain, shortness of breath, nausea or vomiting. Does complain of some chronic back and leg pain made worse by her edema. Will address this in the outpatient setting. Stable for discharge home. Objective Vital signs: Temp Pulse Resp BP Pulse Ox 97.7 F 69 18 103/61 L 97 05/13/20 04:00 05/13/20 04:00 05/13/20 04:00 05/13/20 04:00 05/13/20 04:00 no acute distress, morbidly obese - *Routine HEENT Exam Head: Present: normocephalic Eye: Present: EOMI, PERRL ENT: Present: mucous membranes moist - *Routine Neck Exam Present: supple - *Routine Respiratory Exam Present: CTA bilaterally - *Routine Cardiovascular Exam Present: RRR - *Routine Abdominal Exam Present: soft, normoactive bowel sounds. Absent: tenderness - *Routine Extremities Exam Present: edema (2+, Left > Right, minimal erythema of left lower luz maria.). Absent: cyanosis, clubbing Comments: Puncture wounds healing, minimal bloody discharge. No significant erythema around wounds. - *Routine Skin Exam Present: warm. Absent: rash Results Labs on day of discharge: Labs from last 24 hours 05/13/20 05/13/20 05/13/20 06:07 06:07 04:42 WBC 2.2 L D RBC 3.83 L Hgb 11.3 L Hct 35.8 L MCV 93.5 MCH 29.6 MCHC 31.7 L RDW 13.5 Plt Count 75 L MPV 10.2 Neut % (Auto) 59.7 Lymph % (Auto) 31.4 [place] % (Auto) 6.1 Eos % (Auto) 2.4 Baso % (Auto) 0.4 Neut # (Auto) 1.3 L Lymph # (Auto) 0.7 [place] # (Auto) 0.1 Eos # (Auto) 0.1 Baso # (Auto) 0.0 Sodium 140 Potassium 4.5 Chloride 111 H Carbon Dioxide 25 D Anion Gap 8.5 BUN 16 Creatinine 0.90 Estimated Creat Clear 68 Estimated GFR 66 Est GFR ( Amer) 80 Glucose 126 H POC Glucose 125 H Lactate Calcium 8.4 Vancomycin Trough 05/12/20 05/12/20 05/12/20 20:01 16:30 14:29 WBC RBC Hgb Hct MCV MCH MCHC RDW Plt Count MPV Neut % (Auto) Lymph % (Auto) [place] % (Auto) Eos % (Auto) Baso % (Auto) Neut # (Auto) Lymph # (Auto) [place] # (Auto) Eos # (Auto) Baso # (Auto) Sodium Potassium Chloride Carbon Dioxide Anion Gap BUN Creatinine Estimated Creat Clear Estimated GFR Est GFR ( A
== END 2020-05-13 12:30 | disposition home or self-care (01) | DRG 605 ==
PROVIDERS: Internal Medicine Adolescent Medicine; Admitting Provider Internal Medicine Adolescent Medicine; PCP Internal Medicine Adolescent Medicine; Visit Provider Internal Medicine Adolescent Medicine
DX: S91.052A Open bite, left ankle, initial encounter (principal); L03.116 Cellulitis of left lower limb; Z68.42 Body mass index [BMI] 45.0-49.9, adult; N39.0 Urinary tract infection, site not specified; W55.01XA Bitten by cat, initial encounter; E66.9 Obesity, unspecified; E11.9 Type 2 diabetes mellitus without complications; Z79.84 Long term (current) use of oral hypoglycemic drugs; Z88.0 Allergy status to penicillin; Z88.1 Allergy status to other antibiotic agents; Z95.0 Presence of cardiac pacemaker; I10 Essential (primary) hypertension
CPT/HCPCS: 36415; 71046; 80048; 80053; 80202; 81001; 82962; 83605; 85007; 85025; 87040; 87077; 87086; 87088; 87186; 93005; J1335; J3370; U0003

== ENCOUNTER → 2020-08-09 16:22 | Outpatient (CLI) | payer BC, SELFPAY | PROVIDERS: Visit Provider Nurse Practitioner Family | DX: R30.0 Dysuria (principal) | CPT/HCPCS: 87086; 87088; 87186 ==

== ENCOUNTER → 2020-08-22 15:34 | Outpatient (CLI) | payer BC, SELFPAY ==
[2020-08-22 16:30] LABS: Chloride 106 mmol/L (98-107)
[2020-08-22 16:31] LABS: Potassium 5.2 mmoL/L (3.5-5.1); Sodium 141 mmol/L (136-145)
[2020-08-22 16:34] LABS: Anion Gap 12.2 mEq/L (5-15); Blood Urea Nitrogen 19 mg/dl (7-17); Calcium 9.1 mg/dl (8.4-10.2); Carbon Dioxide 28 mmol/L (22.0-30.0); Estimated Glomerular Filt Rate 75 ml/min (>60); GFR (African American) 91 ML/MIN (>60); Glucose 179 mg/dl (74-100)
== END ==
PROVIDERS: Visit Provider Urology
DX: N39.0 Urinary tract infection, site not specified (principal); N39.41 Urge incontinence
CPT/HCPCS: 80048; 87086; 87088; 87186

== ENCOUNTER → 2020-09-07 16:04 | Outpatient (CLI) | payer BC, SELFPAY ==
[2020-09-07 16:38] LABS: Chloride 108 mmol/L (98-107); Potassium 4.3 mmoL/L (3.5-5.1); Sodium 141 mmol/L (136-145)
[2020-09-07 16:41] LABS: Anion Gap 8.3 mEq/L (5-15); Blood Urea Nitrogen 16 mg/dl (7-17); Calcium 8.5 mg/dl (8.4-10.2); Carbon Dioxide 29 mmol/L (22.0-30.0); Estimated Glomerular Filt Rate 75 ml/min (>60); GFR (African American) 91 ML/MIN (>60); Glucose 175 mg/dl (74-100)
== END ==
PROVIDERS: Visit Provider Urology
DX: N30.20 Other chronic cystitis without hematuria (principal); N39.44 Nocturnal enuresis
CPT/HCPCS: 36415; 80048

== ENCOUNTER → 2020-10-13 10:28 | Outpatient (CLI) | payer BC, SELFPAY ==
[2020-10-13 11:05] LABS: Basophils % 0.7 % (0.1-2.0); Eosinophils # 0.2 K/mm3 (0.0-0.4); Eosinophils % 3.4 % (0.1-12.0); Hemoglobin 12.7 g/dL (12.2-16.2); Lymphocytes # 1.6 K/mm3 (0.7-4.5); Lymphocytes % 28.8 % (10-50); Mean Corpuscular HGB Conc 33.4 g/dL (31.8-35.4); Mean Platelet Volume 9.7 fl (7.4-10.4); Monocytes # 0.4 K/mm3 (0.1-1.0); Neutrophils # 3.4 K/mm3 (1.8-7.8); Neutrophils % 60.1 % (37.0-80.0); Platelet Count 116 K/mm3 (142-424); Red Blood Count 4.36 M/mm3 (4.20-5.40); Red Cell Distribution Width 13.8 % (11.5-17.5); White Blood Count 5.6 K/mm3 (4.8-10.8)
[2020-10-13 12:10] LABS: 25-OH Vitamin D, Total 34.8 ng/mL (30-100)
[2020-10-13 12:23] LABS: Hemoglobin A1C 7.1 % (4.0-6.0)
[2020-10-13 17:42] LABS: Chloride 104 mmol/L (98-107); Potassium 4.8 mmoL/L (3.5-5.1); Sodium 140 mmol/L (136-145)
[2020-10-13 17:45] LABS: Alanine Aminotransferase 21 U/L (12-78); Albumin Level 3.9 g/dl (3.5-5.0); Albumin/Globulin Ratio 1.5 (1.1-1.8); Alkaline Phosphatase 114 U/L (38-126); Anion Gap 12.8 mEq/L (5-15); Aspartate Amino Transferase 33 U/L (14-36); Bilirubin,Total 1.1 mg/dl (0.2-1.3); Blood Urea Nitrogen 18 mg/dl (7-17); Calcium 8.7 mg/dl (8.4-10.2); Carbon Dioxide 28 mmol/L (22.0-30.0); Estimated Glomerular Filt Rate 58 ml/min (>60); GFR (African American) 70 ML/MIN (>60); Globulin 2.6 g/dL (1.3-3.2); Glucose 189 mg/dl (74-100); Total Protein,Serum 6.5 g/dl (6.3-8.2)
== END ==
PROVIDERS: Visit Provider Internal Medicine Adolescent Medicine
DX: I10 Essential (primary) hypertension (principal); E11.8 Type 2 diabetes mellitus with unspecified complications; E55.9 Vitamin D deficiency, unspecified
CPT/HCPCS: 36415; 80053; 82306; 83036; 85025

== ENCOUNTER → 2021-01-23 14:22 | Outpatient (CLI) | payer BC, SELFPAY | PROVIDERS: Visit Provider Internal Medicine Adolescent Medicine | DX: R30.0 Dysuria (principal); B96.20 Unspecified Escherichia coli [E. coli] as the cause of diseases classified elsewhere | CPT/HCPCS: 87086; 87186 ==

== ENCOUNTER → 2021-02-22 07:59 | Outpatient (CLI) | payer BC, SELFPAY ==
[2021-02-22 09:45] LABS: Blood Urea Nitrogen 20 mg/dl (7-17); Estimated Glomerular Filt Rate 65 ml/min (>60); GFR (African American) 79 ML/MIN (>60)
== END ==
PROVIDERS: Visit Provider Internal Medicine Adolescent Medicine
DX: R10.30 Lower abdominal pain, unspecified (principal)
CPT/HCPCS: 36415; 82565; 84520

== ENCOUNTER → 2021-03-02 08:07 | Outpatient (CLI) | payer BC, SELFPAY ==
--- NOTE | 2021-03-02 08:13 | CT_ITS ---
PROCEDURE INFORMATION: Exam: CT Abdomen And Pelvis Without And With Contrast Exam date and time: 03/02/2021 8:13 AM Age: 55 years old Clinical indication: Abdominal tenderness; Additional info: Lower abd pain TECHNIQUE: Imaging protocol: Computed tomography of the abdomen and pelvis without and with contrast. Radiation optimization: All CT scans at this facility use at least one of these dose optimization techniques: automated exposure control; mA and/or kV adjustment per patient size (includes targeted exams where dose is matched to clinical indication); or iterative reconstruction. Contrast material: ISOVUE; Contrast volume: 75 ml; Contrast route: INTRAVENOUS (IV); COMPARISON: CT ABDOMEN PELVIS WO CON 02/10/2019 12:13 PM FINDINGS: Lungs: Calcified right lower lobe granuloma. Liver: Cirrhotic morphology of the liver. Gallbladder and bile ducts: Cholecystectomy. Pancreas: Normal. No ductal dilation. Spleen: Mild splenomegaly. Adrenal glands: Normal. No mass. Kidneys and ureters: Normal. No hydronephrosis. Stomach and bowel: Changes of prior Rafal-en-Y gastric bypass. No bowel obstruction. Appendix: No evidence of appendicitis. Intraperitoneal space: Unremarkable. No free air. No significant fluid collection. Vasculature: Recanalization of the umbilical vein. Lymph nodes: Unremarkable. No enlarged lymph nodes. Urinary bladder: Unremarkable as visualized. Reproductive: Unremarkable as visualized. Bones/joints: Unremarkable. No acute fracture. Soft tissues: Unremarkable. IMPRESSION: 1. No acute findings in the abdomen or pelvis. 2. Cirrhotic morphology of the liver with evidence of portal hypertension.
== END ==
LOC: RAD 08:08
PROVIDERS: PCP Internal Medicine Adolescent Medicine; Visit Provider Internal Medicine Adolescent Medicine
DX: R10.30 Lower abdominal pain, unspecified (principal)
CPT/HCPCS: 74178; Q9967

== ENCOUNTER → 2021-04-05 11:02 | Outpatient (CLI) | payer SELFPAY ==
--- NOTE | 2021-04-05 11:08 | US_ITS ---
FINAL REPORT CLINICAL HISTORY: FATTY LIVER, CIRRHOSIS OF LIVER, HISTORY OF COLONIC POLYPS-- gb surg absent FINDINGS: RIGHT UPPER QUADRANT ULTRASOUND: Ultrasound images of right upper quadrant were obtained. Limited images of the pancreas are obscured by bowel gas. The portal vein is borderline dilated at 13 mm. There is mild fatty infiltration of the liver. The gallbladder is absent. The common duct is normal measuring 5 mm. Limited images of right kidney are unremarkable. IMPRESSION: Mild fatty liver. Portal vein is borderline dilated. Reviewed, Interpreted and Dictated by Александр Cardona III, MD Transcribed by Keturah Encarnacion Authenticated by Александр Cardona III, MD on 04/05/2021 01:00:[address] [facility]
[2021-04-05 12:16] LABS: Basophils % 0.9 % (0.1-2.0); Eosinophils # 0.2 K/mm3 (0.0-0.4); Eosinophils % 4.3 % (0.1-12.0); Hematocrit 41.5 % (37.0-47.0); Hemoglobin 12.9 g/dL (12.2-16.2); Lymphocytes % 23.4 % (10-50); Mean Corpuscular HGB Conc 31.1 g/dL (31.8-35.4); Mean Corpuscular Hemoglobin 28.4 pg (27.0-31.2); Mean Corpuscular Volume 91.1 fl (81-99); Mean Platelet Volume 11.2 fl (7.4-10.4); Monocytes # 0.3 K/mm3 (0.1-1.0); Monocytes % 7.4 % (1.7-9.3); Neutrophils # 2.8 K/mm3 (1.8-7.8); Platelet Count 111 K/mm3 (142-424); Red Blood Count 4.55 M/mm3 (4.20-5.40); Red Cell Distribution Width 13.8 % (11.5-17.5); White Blood Count 4.4 K/mm3 (4.8-10.8)
[2021-04-05 12:23] LABS: INR 0.97 (0.9-1.1)
[2021-04-05 12:58] LABS: Chloride 100 mmol/L (98-107); Potassium 4.9 mmoL/L (3.5-5.1); Sodium 132 mmol/L (136-145)
[2021-04-05 13:00] LABS: Alanine Aminotransferase 33 U/L (12-78); Alkaline Phosphatase 119 U/L (38-126); Anion Gap 8.9 mEq/L (5-15); Aspartate Amino Transferase 54 U/L (14-36); Bilirubin,Total 1.7 mg/dl (0.2-1.3); Blood Urea Nitrogen 15 mg/dl (7-17); Carbon Dioxide 28 mmol/L (22.0-30.0); Estimated Glomerular Filt Rate 75 ml/min (>60); GFR (African American) 91 ML/MIN (>60); Iron 95 ug/dL (37-170)
[2021-04-05 13:01] LABS: Albumin Level 3.7 g/dl (3.5-5.0); Albumin/Globulin Ratio 1.6 (1.1-1.8); Calcium 8.7 mg/dl (8.4-10.2); Globulin 2.3 g/dL (1.3-3.2); Glucose 218 mg/dl (74-100)
[2021-04-05 13:10] LABS: Total Iron Binding Capacity 426 ug/dL (265-497)
[2021-04-05 13:36] LABS: Ferritin 11.4 ng/ml (11.1-264)
[2021-04-05 15:25] LABS: Hemoglobin A1C 8.8 % (4.0-6.0)
[2021-04-07 08:15] LABS: Ceruloplasmin 18.5 mg/dL (19.0-39.0); Immunoglobulin A, Qn 275 mg/dL (87-352); Immunoglobulin G, Qn 700 mg/dL (586-1602); Immunoglobulin M, Qn 142 mg/dL (26-217)
[2021-04-07 13:09] LABS: Actin (Smooth Muscle) Antibody 6 Units (0-19); Liver-Kidney Microsomal Ab <1.0 Units (0.0-20.0); Mitochondrial (M2) Antibody <20.0 Units (0.0-20.0)
[2021-04-07 14:10] LABS: Deamidated Gliadin Abs, IgA 6 units (0-19); Deamidated Gliadin Abs, IgG 2 units (0-19); Tissue Transglutaminase IgA Ab <2 U/mL (0-3); Tissue Transglutaminase IgG Ab <2 U/mL (0-5)
[2021-04-08 15:08] LABS: Endomysial IgA Antibody Negative (Negative)
[2021-04-09 13:14] LABS: Angiotensin Converting Enzyme 23 U/L (14-82)
[2021-04-10 02:08] LABS: ALT (SGPT) P5P 35 IU/L (0-40); AST (SGOT) P5P 45 IU/L (0-40); Alpha 2-Macroglobulins, Qn 347 mg/dL (110-276); Apolipoprotein A-1 146 mg/dL (116-209); Bilirubin, Total 1.4 mg/dL (0.0-1.2); Cholesterol, Total 152 mg/dL (100-199); Fibrosis Score 0.68 (0.00-0.21); GGT 34 IU/L (0-60); Glucose 222 mg/dL (65-99); Haptoglobin 79 mg/dL (33-346); NASH Score 0.75 (0.25); Steatosis Score 0.55 (0.00-0.30); Triglycerides 91 mg/dL (0-149)
[2021-04-10 14:19] LABS: Alpha-1-Antitrypsin 131 mg/dL (101-187)
[2021-04-11 06:37] LABS: Reticulin IgA Antibody Negative titer (Neg:<1:2.5)
[2021-04-19 15:33] LABS: Antinuclear Antibodies (ANA) POSITIVE
== END ==
PROVIDERS: PCP Internal Medicine Adolescent Medicine; Visit Provider Nurse Practitioner Family
DX: K76.0 Fatty (change of) liver, not elsewhere classified (principal); K74.69 Other cirrhosis of liver; Z86.010 Personal history of colon polyps
CPT/HCPCS: 36415; 76705; 80053; 82103; 82104; 82164; 82390; 82728; 82784; 83036; 83516; 83540; 83550; 85025; 85610; 86038; 86255; 86256; 86376

== ENCOUNTER 2021-06-09 18:00 | Emergency (ER) | payer SELFPAY ==
[2021-06-09 18:51] VITALS: BP 119/74; PULSE 94; RESP 19; TEMP 37; O2SAT 100; BMI 52.4
--- NOTE | 2021-06-09 18:54 | XR_ITS ---
PROCEDURE INFORMATION: Exam: XR Lumbosacral Spine Exam date and time: 06/09/2021 7:03 PM Age: 55 years old Clinical indication: Injury or trauma; Fall; Blunt trauma (contusions or hematomas); Additional info: Fall pain leftr low back TECHNIQUE: Imaging protocol: XR of the lumbosacral spine. Views: 2 or 3 views. COMPARISON: MR LUMBAR SPINE WO CON 03/30/2020 8:00 AM FINDINGS: Bones/joints: Normal. No acute fracture. Normal alignment. Soft tissues: Unremarkable. Intraperitoneal space: Cholecystectomy clips. IMPRESSION: No acute findings.
--- NOTE | 2021-06-09 18:54 | XR_ITS ---
PROCEDURE INFORMATION: Exam: XR Left Shoulder Exam date and time: 06/09/2021 6:57 PM Age: 55 years old Clinical indication: Injury or trauma; Fall; Blunt trauma (contusions or hematomas); Shoulder; Left TECHNIQUE: Imaging protocol: XR Left shoulder. Views: 2 or more views. COMPARISON: CR XR CHEST 2V 05/10/2020 1:41 PM FINDINGS: Bones/joints: No acute fracture or dislocation. Soft tissues: Normal. IMPRESSION: No acute fracture or dislocation.
--- NOTE | 2021-06-09 18:54 | XR_ITS ---
PROCEDURE INFORMATION: Exam: XR Left Knee Exam date and time: 06/09/2021 7:00 PM Age: 55 years old Clinical indication: Injury or trauma; Fall; Blunt trauma; Knee; Left TECHNIQUE: Imaging protocol: XR Left knee. Views: 3 views. COMPARISON: CR Knee L 09/01/2018 3:28 PM FINDINGS: Bones/joints: Mild tricompartmental osteoarthrosis. No acute fracture or dislocation. Soft tissues: [id number] widespread soft tissue edema. IMPRESSION: No acute fracture or dislocation.
--- NOTE | 2021-06-09 19:29 | HMH.EDUTC ---
[facility] Disposition Clinical Impression: Fall Qualifiers: Encounter type: initial encounter Qualified Code(s): W19.XXXA - Unspecified fall, initial encounter Low back pain Qualifiers: Chronicity: acute Back pain laterality: bilateral Sciatica presence: without sciatica Qualified Code(s): M54.50 - Low back pain, unspecified Left shoulder pain Qualifiers: Chronicity: acute Qualified Code(s): M25.512 - Pain in left shoulder Left knee pain Qualifiers: Chronicity: acute Qualified Code(s): M25.562 - Pain in left knee Disposition: Home, Self-Care Condition on Discharge: Good Instructions: DI for Low Back Pain, DI for Shoulder Pain, DI for Knee Pain Additional Instructions: Rest the extremity, apply ice for 15 minutes as tolerated three or four times per day, Wear the rafia wrap for compression, Elevate the extremity as tolerated while you are resting. Take ibuprofen for pain. I sent in a prescription to your pharmacy. Follow up with Dr. Palumbo (orthopedics). Sometimes there can be fractures that don't show up well on the first set of x-rays. So, you should follow up if you continue to have symptoms. I put in a referral but you need to call his office and schedule an appointment. Follow up with your regular doctor. GO TO THE ER FOR ANY WORSENING SYMPTOMS Referrals: Victor Manuel Campbell MD [Primary Care Provider] - Aquilino Palumbo MD [Staff Physician] - Time of Disposition: 20:47 Medical Decision Making - Medical Records Medical records reviewed: No: I reviewed the patient's medical records. - Stefan Inquiry Pt receiving controlled substance: No Vital Signs: 06/09/21 18:51 06/09/21 20:43 Temperature 98.6 F 98.6 F Temperature Source Oral Pulse Rate 94 H Pulse Rate [Left] 94 H Respiratory Rate 19 19 Blood Pressure 119/74 Blood Pressure [Right Arm] 119/74 Blood Pressure Mean [Right Arm] 89 02 Sat by Pulse Oximetry 100 [facility] HPI - General Stated complaint: back pain,fall Time Seen by Provider: 06/09/21 19:44 Mode of Arrival: Ambulatory Source of Information: Patient Limitations: No Limitations Description of Symptoms (Recalled from Triage Doc. by RN): pt states she fell in the bathroom last night. pt c/o lower back pain, L knee, and L shoulder pain. HEENT Symptoms (Recalled from RN notes): No Resp Symptoms (Recalled from RN notes): No Skin Symptoms (Recalled from RN notes): No MS Symptoms (Recalled from RN notes): Yes Functional Status (Recalled from RN notes): wnl - History of Present Illness Provider Complaint: She fell last night in her bathroom. Today, she has been having right knee, right arm and right shoulder pain. She denies any other injury. She denies any head injury or neck injury. - Related Data Home Medications Medication Instructions Recorded Confirmed hydrocodone 7.5 mg-acetaminophen 1 tab PO Q8HP PRN 03/26/17 02/08/21 325 mg tablet ondansetron HCl 4 mg tablet 4 mg PO Q8HP PRN tab 06/11/17 02/08/21 oxybutynin chloride 5 mg tablet 5 mg PO QID 06/11/17 02/08/21 Duloxetine HCl 60 mg PO DAILY 02/10/19 02/08/21 Ergocalciferol (Vitamin D2) 50,000 units PO WEEKLY 02/10/19 02/08/21 [Drisdol 50,000 units (1.25mg) capsule] Furosemide [Furosemide 40MG tAB*] 40 mg PO DAILYP PRN 02/10/19 02/08/21 Ibuprofen/Famotidine [Duexis 1 tab PO TIDWM PRN 02/10/19 02/08/21 800-26.6 mg Tablet] Semaglutide [Ozempic] 0.5 mg SQ WEEKLY 02/10/19 02/08/21 Albuterol Sulfate [Proair Hfa 2 puffs IH TIDP PRN 02/11/19 02/08/21 90mcg/puff Inh] Gabapentin 600 mg PO QID 02/11/19 02/08/21 Loratadine [Claritin 10mg 10 mg PO DAILY 02/11/19 02/08/21 Tablet] Ropinirole HCl 1 mg PO HSP PRN 02/11/19 02/08/21 Tizanidine HCl 4 mg PO BIDP PRN 02/11/19 02/08/21 Fluticasone Propionate [Flonase 2 spr NS DAILY 02/17/19 02/08/21 50mcg nasal spray 16gm] Amitriptyline HCl [Elavil 50mg 50 mg PO HS 05/11/20 02/08/21 tablet] amitriptyline 50 mg tablet 50 mg PO DAILY 08/22/20 02/08/21 benzonatate
[2021-06-09 20:43] VITALS: BP 119/74; PULSE 94; RESP 19; TEMP 37
== END 2021-06-09 21:00 | disposition home or self-care (01) ==
PROVIDERS: Emergency Provider Nurse Practitioner Family; PCP Internal Medicine Adolescent Medicine
DX: N39.0 Urinary tract infection, site not specified (principal); M54.50 Low back pain, unspecified; M25.562 Pain in left knee; M25.512 Pain in left shoulder; D64.9 Anemia, unspecified; K21.9 Gastro-esophageal reflux disease without esophagitis; E11.9 Type 2 diabetes mellitus without complications; E66.01 Morbid (severe) obesity due to excess calories; M19.90 Unspecified osteoarthritis, unspecified site; J44.9 Chronic obstructive pulmonary disease, unspecified; Z79.1 Long term (current) use of non-steroidal anti-inflammatories (NSAID); Z79.51 Long term (current) use of inhaled steroids; Z88.0 Allergy status to penicillin; Z88.2 Allergy status to sulfonamides; Z88.8 Allergy status to other drugs, medicaments and biological substances; Z82.49 Family history of ischemic heart disease and other diseases of the circulatory system; Z95.0 Presence of cardiac pacemaker; Z83.3 Family history of diabetes mellitus; Z68.43 Body mass index [BMI] 50.0-59.9, adult; W19.XXXA Unspecified fall, initial encounter
CPT/HCPCS: 72100; 73030; 73562; 99213; G0463

== ENCOUNTER → 2021-12-17 08:27 | Outpatient (CLI) | payer BC, SELFPAY ==
--- NOTE | 2021-12-17 08:32 | US_ITS ---
FINAL REPORT CLINICAL HISTORY: CIRRHOSIS OF LIVER.....(ALVES). FINDINGS: Sonographic images of the right upper quadrant were obtained. The pancreas is partially obscured. There is a coarsened hepatic echotexture that may represent cirrhosis. The portal vein is dilated. There are presumed varices in the right abdomen. The gallbladder is surgically absent.There is no evidence of biliary ductal dilatation.The common duct measures 6 mm. Limited images of the right kidney are unremarkable. IMPRESSION: Coarsened hepatic echotexture may represent cirrhosis. Dilated portal vein with presumed varices in the right abdomen. Absent gallbladder. Reviewed, Interpreted and Dictated by Александр Cardona III, MD Transcribed by Tee Alvarez Authenticated and [facility]
== END ==
LOC: RAD 08:27
PROVIDERS: PCP Internal Medicine Adolescent Medicine; Visit Provider Nurse Practitioner Family
DX: K75.81 Nonalcoholic steatohepatitis (NASH) (principal); K74.69 Other cirrhosis of liver; E83.00 Disorder of copper metabolism, unspecified; Z86.010 Personal history of colon polyps; Z12.11 Encounter for screening for malignant neoplasm of colon
CPT/HCPCS: 76705

== ENCOUNTER → 2021-12-17 09:05 | Outpatient (CLI) | payer BC, SELFPAY ==
[2021-12-17 10:51] LABS: Basophils % 0.5 % (0.1-2.0); Eosinophils # 0.1 K/mm3 (0.0-0.4); Eosinophils % 2.9 % (0.1-12.0); Hematocrit 42.2 % (37.0-47.0); Hemoglobin 13.2 g/dL (12.2-16.2); Lymphocytes # 0.8 K/mm3 (0.7-4.5); Lymphocytes % 23.7 % (10-50); Mean Corpuscular HGB Conc 31.3 g/dL (31.8-35.4); Mean Corpuscular Hemoglobin 29.6 pg (27.0-31.2); Mean Corpuscular Volume 94.6 fl (81-99); Mean Platelet Volume 10.6 fl (7.4-10.4); Monocytes # 0.2 K/mm3 (0.1-1.0); Neutrophils # 2.3 K/mm3 (1.8-7.8); Neutrophils % 66.9 % (37.0-80.0); Platelet Count 107 K/mm3 (142-424); Red Blood Count 4.47 M/mm3 (4.20-5.40); White Blood Count 3.4 K/mm3 (4.8-10.8)
[2021-12-17 11:02] LABS: INR 1.01 (0.9-1.1); Prothrombin Time 10.9 seconds (10.1-12.5)
[2021-12-17 11:28] LABS: Chloride 103 mmol/L (98-107); Potassium 4.6 mmoL/L (3.5-5.1); Sodium 139 mmol/L (136-145)
[2021-12-17 11:30] LABS: Blood Urea Nitrogen 12 mg/dl (7-17); Estimated Glomerular Filt Rate 87 ml/min (>60); GFR (African American) 106 ML/MIN (>60)
[2021-12-17 11:31] LABS: Alanine Aminotransferase 30 U/L (12-78); Albumin Level 3.4 g/dl (3.5-5.0); Albumin/Globulin Ratio 1.4 (1.1-1.8); Alkaline Phosphatase 123 U/L (38-126); Anion Gap 10.6 mEq/L (5-15); Aspartate Amino Transferase 56 U/L (14-36); Bilirubin,Total 1.1 mg/dl (0.2-1.3); Calcium 8.4 mg/dl (8.4-10.2); Carbon Dioxide 30 mmol/L (22.0-30.0); Globulin 2.4 g/dL (1.3-3.2); Glucose 208 mg/dl (74-100); Iron 73 ug/dL (37-170); Total Protein,Serum 5.8 g/dl (6.3-8.2)
[2021-12-17 11:41] LABS: Total Iron Binding Capacity 375 ug/dL (265-497)
[2021-12-17 12:06] LABS: Ferritin 26.4 ng/ml (11.1-264)
[2021-12-17 16:28] LABS: Ammonia 49 umol/L (9-30)
[2021-12-18 08:53] LABS: AFP, Tumor Marker 2.1 ng/mL (0.0-9.2)
== END ==
PROVIDERS: PCP Nurse Practitioner Family; Visit Provider Nurse Practitioner Family
DX: K75.81 Nonalcoholic steatohepatitis (NASH) (principal); K74.69 Other cirrhosis of liver; E83.00 Disorder of copper metabolism, unspecified; Z86.010 Personal history of colon polyps; Z12.11 Encounter for screening for malignant neoplasm of colon
CPT/HCPCS: 36415; 80053; 82105; 82140; 82728; 83540; 83550; 85025; 85610

== ENCOUNTER → 2021-12-28 16:25 | Outpatient (CLI) | payer BC, SELFPAY ==
[2022-01-02 16:31] LABS: Copper, Urine 17 ug/L (Not Estab.); Copper,Urine 24 Hr 5 ug/24 hr (3-35); Copper/Crt Ratio 12 ug/g creat (0-49); Creatinine(Crt),U 1.43 g/L (0.30-3.00)
== END ==
PROVIDERS: PCP Nurse Practitioner Family; Visit Provider Nurse Practitioner Family
DX: K76.81 Hepatopulmonary syndrome (principal); K74.69 Other cirrhosis of liver; E83.00 Disorder of copper metabolism, unspecified; Z86.010 Personal history of colon polyps; Z12.11 Encounter for screening for malignant neoplasm of colon
CPT/HCPCS: 82525; 82570

== ENCOUNTER 2022-02-06 16:00 | Outpatient (CLI) | payer BC, SELFPAY | END 2022-02-06 16:39 | disposition home or self-care (01) | LOC: INF 16:28 | PROVIDERS: PCP Nurse Practitioner Family; Visit Provider Internal Medicine Infectious Disease | DX: Z45.2 Encounter for adjustment and management of vascular access device (principal) | CPT/HCPCS: G0463 ==

== ENCOUNTER → 2022-06-20 07:58 | Outpatient (CLI) | payer BC, SELFPAY ==
--- NOTE | 2022-06-20 08:04 | US_ITS ---
FINAL REPORT CLINICAL HISTORY: CIRRHOSIS,STEATOHEPATITIS,LOW CERULOPLASMIN COMPARISON: 12/17/2021 FINDINGS: Sonographic images of the right upper quadrant were obtained. The pancreas is partially obscured. There is a coarsened hepatic echotexture with lobular liver contour worrisome for cirrhosis. The portal vein is patent with normal direction of flow. Portal vein now measures 10 mm in diameter, was 16 mm. There is presumed varix noted in the anterior abdomen. Gallbladder is absent. The common duct measures 5 mm. Limited images of the right kidney are unremarkable. IMPRESSION: Abnormal appearance of the liver consistent with cirrhosis. Dilated varix anterior abdomen consistent with portal hypertension. Reviewed, Interpreted and Dictated by Александр Cardona III, MD Transcribed by Alissa Cano Authenticated and . [facility]
[2022-06-20 09:43] LABS: Basophils % 0.6 % (0.1-2.0); Eosinophils # 0.2 K/mm3 (0.0-0.4); Eosinophils % 3.1 % (0.1-12.0); Hemoglobin 14.5 g/dL (12.2-16.2); Lymphocytes # 1.6 K/mm3 (0.7-4.5); Lymphocytes % 22.9 % (10-50); Mean Corpuscular HGB Conc 32.2 g/dL (31.8-35.4); Mean Corpuscular Hemoglobin 30.5 pg (27.0-31.2); Mean Corpuscular Volume 94.6 fl (81-99); Mean Platelet Volume 9.6 fl (7.4-10.4); Monocytes # 0.3 K/mm3 (0.1-1.0); Monocytes % 4.4 % (1.7-9.3); Neutrophils # 4.8 K/mm3 (1.8-7.8); Platelet Count 159 K/mm3 (142-424); Red Blood Count 4.75 M/mm3 (4.20-5.40)
[2022-06-20 09:53] LABS: Ammonia 71 umol/L (9-30)
[2022-06-20 09:54] LABS: INR 1.01 (0.9-1.1); Prothrombin Time 10.9 seconds (10.1-12.5)
[2022-06-20 10:18] LABS: Alanine Aminotransferase 24 U/L (12-78); Albumin Level 3.2 g/dl (3.5-5.0); Albumin/Globulin Ratio 1.2 (1.1-1.8); Alkaline Phosphatase 131 U/L (38-126); Anion Gap 11.4 mEq/L (5-15); Aspartate Amino Transferase 42 U/L (14-36); Bilirubin,Total 1.5 mg/dl (0.2-1.3); Blood Urea Nitrogen 16 mg/dl (7-17); Calcium 8.7 mg/dl (8.4-10.2); Carbon Dioxide 29 mmol/L (22.0-30.0); Chloride 100 mmol/L (98-107); Estimated Glomerular Filt Rate 58 ml/min (>60); GFR (African American) 70 ML/MIN (>60); Globulin 2.7 g/dL (1.3-3.2); Glucose 309 mg/dl (74-100); Potassium 5.4 mmoL/L (3.5-5.1); Sodium 135 mmol/L (136-145); Total Protein,Serum 5.9 g/dl (6.3-8.2)
[2022-06-20 11:53] LABS: Iron 110 ug/dL (37-170)
[2022-06-20 12:03] LABS: Total Iron Binding Capacity 244 ug/dL (265-497)
[2022-06-20 12:29] LABS: Ferritin 158 ng/ml (11.1-264)
[2022-06-21 12:09] LABS: AFP, Tumor Marker <1.8 ng/mL (0.0-9.2)
== END ==
LOC: RAD 07:59
PROVIDERS: PCP Nurse Practitioner Family; Visit Provider Nurse Practitioner Family
DX: K75.81 Nonalcoholic steatohepatitis (NASH) (principal); K74.69 Other cirrhosis of liver; E83.00 Disorder of copper metabolism, unspecified; K72.90 Hepatic failure, unspecified without coma; I86.8 Varicose veins of other specified sites
CPT/HCPCS: 36415; 76705; 80053; 82105; 82140; 82728; 83540; 83550; 85025; 85610

== ENCOUNTER → 2022-08-13 15:05 | Outpatient (CLI) | payer BC, SELFPAY ==
[2022-08-13 15:50] LABS: Ammonia 72 umol/L (9-30)
== END ==
PROVIDERS: PCP Internal Medicine Adolescent Medicine; Visit Provider Nurse Practitioner Family
DX: R94.5 Abnormal results of liver function studies (principal); K75.81 Nonalcoholic steatohepatitis (NASH); K74.69 Other cirrhosis of liver; K72.90 Hepatic failure, unspecified without coma; E83.00 Disorder of copper metabolism, unspecified
CPT/HCPCS: 36415; 82140

== ENCOUNTER → 2022-12-25 08:52 | Outpatient (CLI) | payer BC, SELFPAY ==
--- NOTE | 2022-12-25 08:55 | US_ITS ---
FINAL REPORT CLINICAL HISTORY: ABN LFT,CIRRHOSIS,HEPATIC ENCEPHALOPATHY COMPARISON: 06/20/2022 FINDINGS: Sonographic images of the right upper quadrant were obtained. The pancreas is partially obscured. The liver is small with coarsening of the echotexture compatible with cirrhosis, overall appearance stable since the prior ultrasound. The gallbladder has been surgically removed. The common duct measures 9 mm, was 5 mm on the prior examination of June. While this may represent post cholecystectomy change, other causes for common bile duct dilation cannot be excluded.. Limited images of the right kidney are unremarkable. A prominent collateral vessel is once again noted in the anterior abdomen consistent with the diagnosis of portal hypertension. IMPRESSION: Appearance of the liver is compatible with cirrhosis, stable since June. The common bile duct has enlarged since the prior ultrasound, now measures 9 mm. While this may represent postoperative change, would suggest if indicated clinically and MRCP. Prominent collateral vessel once again noted in the anterior abdomen, consistent with the patient's clinical history of portal hypertension. Reviewed, Interpreted and Dictated by Александр Cardona III, MD Transcribed by Judy Golden Authenticated and [facility]
[2022-12-25 10:33] LABS: Ammonia 33 umol/L (9-30)
[2022-12-25 10:37] LABS: INR 1.08 (0.9-1.1); Prothrombin Time 11.6 seconds (10.1-12.5)
[2022-12-26 11:56] LABS: AFP, Tumor Marker <1.8 ng/mL (0.0-9.2)
== END ==
PROVIDERS: PCP Internal Medicine Adolescent Medicine; Visit Provider Nurse Practitioner Family
DX: R94.5 Abnormal results of liver function studies (principal); K75.81 Nonalcoholic steatohepatitis (NASH); K74.69 Other cirrhosis of liver; K72.90 Hepatic failure, unspecified without coma; E83.00 Disorder of copper metabolism, unspecified
CPT/HCPCS: 36415; 76705; 82105; 82140; 85610

== ENCOUNTER 2023-02-19 18:07 | Emergency (ER) | payer BC, SELFPAY ==
[2023-02-19 18:40] VITALS: BP 118/78; PULSE 86; RESP 19; TEMP 36.7; O2SAT 98; BMI 58.1
--- NOTE | 2023-02-19 18:47 | EXP.UTC ---
Discharge Plan Disposition Patient Disposition: Home, Self-Care Condition: Good Prescriptions Prescriptions: New azithromycin [Zithromax] 250 mg tablet 250 mg PO UD DOSE PK Qty: 6 0RF Rx Instructions: Take two (2) tablets today, then one (1) tablet days #2 thru #5 benzonatate [benzonatate] 100 mg capsule 100 mg PO TIDP PRN (Reason: Cough) Qty: 30 0RF methylprednisolone 4 mg Tablets,Dose Pack 4 mg PO DIRECTED Qty: 21 0RF No Action oxybutynin chloride 5 mg tablet 5 mg PO QID Ozempic 2 mg/dose (8 mg/3 mL) pen injector 2 mg SQ WEEKLY Xifaxan 550 mg tablet 550 mg PO BID insulin glargine [Basaglar KwikPen U-100 Insulin] 100 unit/mL (3 mL) insulin pen 10 unit SQ HS lactulose 10 gram/15 mL solution 10 g PO DAILY methenamine hippurate 1 gram tablet 1 g PO BID nitrofurantoin macrocrystal 100 mg capsule 100 mg PO HS Rx Instructions: must administer with a meal/food nystatin 100,000 unit/mL suspension 1 ml PO DAILY Rx Instructions: swish and swallow oxybutynin chloride 10 mg tablet extended release 24hr 10 mg PO Patient Comments: TAKE ONE TABLET BY MOUTH EVERY DAY desmopressin 0.2 mg tablet 0.2 mg PO Ozempic 1 mg/dose (2 mg/1.5 mL) pen injector 1 mg SQ WEEKLY lisinopril 5 mg tablet 5 mg PO DAILY estradiol [Estrace] 0.01 % (0.1 mg/gram) cream 1 g VG .COMPLEX Qty: 42.5 2RF Rx Instructions: 1 g vaginal; apply blueberry size amount of cream to vagina twice weekly furosemide 40 tablet 40 mg PO DAILYP PRN (Reason: Edema) ergocalciferol (vitamin D2) 50,000 capsule 50,000 units PO WEEKLY duloxetine 60 MG capsule,delayed release(DR/EC) 60 mg PO DAILY albuterol sulfate 8.5 GM HFA aerosol inhaler 2 puffs IH TIDP PRN (Reason: Shortness Of Breath Or Wheezing) gabapentin 600 tablet 600 mg PO QID tizanidine 4 MG tablet 4 mg PO BIDP PRN (Reason: Muscle Spasm) Patient Comments: TAKE 1 TABLET BY MOUTH TWICE A DAY NEEDED fluticasone propionate 120 SPR/BOT bottle 2 spr NS DAILY nadolol 20 mg tablet 20 mg PO DAILY Patient Comments: TAKE ONE TABLET BY MOUTH EVERY DAY IN THE MORNING hydrocodone-acetaminophen 7.5-325 mg tablet See Rx Instructions .ROUTE .COMPLEX Patient Comments: TAKE ONE TABLET BY MOUTH EVERY 6 HOURS MAY CAUSE DROWSINESS Rx Instructions: TAKE ONE TABLET BY MOUTH EVERY 6 HOURS MAY CAUSE DROWSINESS albuterol sulfate 90 mcg/actuation HFA aerosol inhaler See Rx Instructions .ROUTE .COMPLEX Patient Comments: inhale 2 puffs BY MOUTH FOUR TIMES DAILY NEEDED Rx Instructions: inhale 2 puffs BY MOUTH FOUR TIMES DAILY NEEDED Mounjaro 7.5 mg/0.5 mL pen injector See Rx Instructions .ROUTE .COMPLEX Patient Comments: INJECT THE contents of 1 pen (7.5 MG / 0.5 ML) SUBCUTANEOUSLY ONCE a WEEK Rx Instructions: INJECT THE contents of 1 pen (7.5 MG / 0.5 ML) SUBCUTANEOUSLY ONCE a WEEK Referrals Follow up/Referrals: Flako Merino MD [Primary Care Provider] - See instructions Activity Restrictions/Add. Instructions Additional Instructions/Restrictions: Drink plenty of fluids. Take tylenol or ibuprofen for pain or fever. Take the medications as directed. Follow up with your regular doctor. GO TO THE ER FOR ANY WORSENING SYMPTOMS Clinical Impressions Clinical Impression: Bronchitis Instructions Patient Instructions: Acute Bronchitis, DI for Acute Bronchitis Discharge ED Provider: Victor Manuel Lin [facility] HPI General Stated complaint: cough, congestion, bilateral ear pain Time Seen by Provider: 02/19/23 18:47 History of Present Illness Provider Complaint: She states that for the past 2 weeks she has had sinus congestion. She states that her symptoms are worsening. Related Data Home Medications Medication Instructions Recorded Confirmed [email or web address]
[2023-02-19 19:42] VITALS: BP 118/78; PULSE 86; RESP 18; TEMP 36.7; O2SAT 98
== END 2023-02-19 19:42 | disposition home or self-care (01) ==
PROVIDERS: Emergency Provider Nurse Practitioner Family; PCP Internal Medicine Adolescent Medicine
DX: J20.9 Acute bronchitis, unspecified (principal); H92.09 Otalgia, unspecified ear; R05.9 Cough, unspecified; R09.89 Other specified symptoms and signs involving the circulatory and respiratory systems
CPT/HCPCS: 99212; 99214; G0463

== ENCOUNTER 2023-04-29 16:00 | Outpatient (RCR) | payer BC, SELFPAY ==
--- NOTE | 2023-02-27 13:53 | HMH.PTOPWND ---
Rehab Outpt Wound Evaluation Rehab OP Wound Evaluation Start: 02/27/23 13:29 Freq: Status: Active Protocol: Document 02/27/23 13:45 PHOANTONY (Rec: 02/27/23 13:53 PHORNE [id number]) E-signed By Clifford Conde, PT Subjective/History History History This is the initial PT eval for Dipti Cosby, 57 yowf who presents with c/o B LE edema x ~ 1 yr, gradually worsening, and now with multiple blisters. She presents with significant hyperkeratosis to B LE, worse on the R. 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 She reports difficulty ambulating for several years now due to her multiple medical problems. Subjective Subjective Currently she has 1/4 TTP to B lower legs. Severe blanchable erythema noted to B lower legs with Moderate hyperkeratosis and mild lipodermatosclerosis. several open sores noted to B LE which appear to be de-roofed bullae . New diagnosis of cancer in past 12 No months? Lymphedema Eval Classification of Lymphedema Secondary Lymphedema Yes Stemmer's sign Stemmer's Sign no Stage of Lymphedema Lymphedema stages Stage II (Pitting edema, increased fibrosis w/ decreased pitting) Skin Changes Dry Skin Yes Taut, Shiny Skin Yes Skin Folds Yes Hyperkeratosis Yes Papillomatosis Yes Redness Yes Blisters Yes Wounds Yes Brittle Uneven Nails Yes Discoloration of Skin Yes Other Changes Yes Affected Extremities Areas Affected by Lymphedema/Edema Right Lower Extremity,Left Lower Extremity Manual Lymphatic Drainage Treatment Area MLD Treatment Area Right Lower Extremity,Left Lower Extremity Wound Problems/Impairments Impairments Problems/Impairmments Palpation Tenderness,Impaired Walking,Impaired Standing, Increased Edema,Lymphedema Present,Wound Care Needs, Subjective C/O Pain,Impaired Self Care/Self Management Prognosis Rehab Potential Good Clinical Impression Consistent with Diagnosis Yes Short Term Goals Number of Weeks 2 Decrease Edema Yes: No pitting edema to B LE Decrease Wound Area Yes: by 25% Patient to Understand Lymphedema Yes Treatment and Exercises Decrease Girth Measurments by (cm) Yes: B LE total by 5 cm ea Usp Goals Number of Weeks 4 Decreased Palpation Tenderness Yes: B LE 0/4 Improve Ability For Household Care Yes Decrease Lymphedema Yes: Minimal fibrotic edema Decrease Wound Area Yes: by 75% Patient to be Ind w/ HEP Yes Patient to be Ind w/ Donning/Vicco Yes Compression Garments Patient to Adhere Lymphedema Precautions Yes Decrease Girth Measurments by (cm) Yes: B LE total by 15 cm Outpatient Therapy Plan of Care Treatment Plan May Include Therapeutic Exercise Including Home Yes Exercise Program Manual Therapy Techniques Yes Neuromuscular Re-education Yes Therapeutic Activities to Return to Yes Previous Functional/Work Level ADL/Self Care Education Yes Orthotics/Bracing/Splinting Yes Manual Lymphatic Drainage Yes Eval/Re-Eval Yes Frequency Times per week 2 Duration Number of Weeks 4 Addendums This patient is a candidate for social No or vocational rehab? Patient/Guardian verbally acknowledges Yes understanding of treatment program and consents to further treatment? Patient/Guardian verbally acknowledges Yes understanding of diagnosis, prognosis and goals for treatment? Eval Complexity PT Charges 33660 - High Complexity PHYSICIAN CERTIFICATION: I certify the specified therapy services for Dipti Cosby are required, authorized, and reviewed every 30 days.
--- NOTE | 2023-03-28 16:13 | HMH.RHREAS ---
Rehab Reassessment Rehab OP Re-assessment Start: 02/27/23 13:29 Freq: Status: Active Protocol: Document 03/28/23 16:08 RENEMesfinRUBIA (Rec: 03/28/23 16:12 PHORRUBIA [id number]) E-signed By Clifford Conde, PT Rehab Re-assessment Subjective Subjective Pt reports, I've just had some issues to deal with and I couldn't make it in. When they are wrapped, they feel a lot better. Objective Objective Notes Circumferential Measurements: R LE total is 189.5 cm L LE total is 195.0 cm Pt has been present for only 1 treatment since her initial eval date. Minimal improvement in B LE edema, wounds and TTP noted as she has not been able to receive any treatment. Assessment Progress Assessment Slower Than Expected Assessment Notes Pt has been unable to attend therapy appointments and therefore has minimal, if any, progress toward goals. She continues to need skilled intervention to return to prior level of function. Patient goals met none Goals Not Met All STG and LTG Plan Plan Continue per initial POC. Frequency of Therapy 2 x/wk Duration of therapy 4 wks Time and Billing Re-Eval Time 13 Re-Eval Billing Units 1 PHYSICIAN CERTIFICATION: I certify the specified therapy services for Dipti Cosby are required, authorized, and reviewed every 30 days.
== END 2023-04-29 17:20 | disposition home or self-care (01) ==
LOC: PT 16:00
PROVIDERS: PCP Internal Medicine Adolescent Medicine; Visit Provider Internal Medicine Adolescent Medicine
DX: I89.0 Lymphedema, not elsewhere classified (principal)
CPT/HCPCS: 97140; 97163; 97164; 97760

== ENCOUNTER 2023-05-30 11:05 | Emergency (ER) | payer BC, SELFPAY ==
[2023-05-30] VITALS (11 sets, daily range): BP systolic 95–129; BP diastolic 53–85; PULSE 78–106; RESP 16; TEMP 36.4–36.6; O2SAT 90–100; BMI 56.5
--- NOTE | 2023-05-30 11:37 | XR_ITS ---
FINAL REPORT CLINICAL HISTORY: fall, LLE pain FINDINGS: Left knee Two views were obtained. There is a severely comminuted displaced fracture of the distal femoral diaphysis. There is full shaft width lateral displacement of the distal fracture fragment. There is marked anterior angulation of the distal fracture fragment. There is no intra-articular extension seen. IMPRESSION: Fracture as above. Reviewed, Interpreted and Dictated by Byron Hallman MD Transcribed by Keturah Encarnacion Authenticated and . [facility]
--- NOTE | 2023-05-30 11:37 | XR_ITS ---
FINAL REPORT CLINICAL HISTORY: fall, LLE pain FINDINGS: Left hip Four views were obtained. There is no acute fracture or dislocation. The joint spaces appear normal. No soft tissue abnormality is identified. IMPRESSION: No acute process. Reviewed, Interpreted and Dictated by Byron Hallman MD Transcribed by Keturah Encarnacion Authenticated and [facility]
--- NOTE | 2023-05-30 11:37 | XR_ITS ---
FINAL REPORT CLINICAL HISTORY: fall, LLE pain FINDINGS: Left femur Two views were obtained. There is a severely comminuted displaced fracture of the distal femoral diaphysis. There is full shaft width lateral displacement of the distal fracture fragment. There is marked anterior angulation of the distal fracture fragment. There is no intra-articular extension seen. IMPRESSION: Fracture as above. Reviewed, Interpreted and Dictated by Byron Hallman MD Transcribed by Keturah Encarnacion Authenticated and [facility]
--- NOTE | 2023-05-30 11:39 | HMH.EDGENADL ---
Discharge Plan Disposition Chief Complaint: Fall Prescriptions Prescriptions: No Action oxybutynin chloride 5 mg tablet 5 mg PO QID Ozempic 2 mg/dose (8 mg/3 mL) pen injector 2 mg SQ WEEKLY Xifaxan 550 mg tablet 550 mg PO BID insulin glargine [Basaglar KwikPen U-100 Insulin] 100 unit/mL (3 mL) insulin pen 10 unit SQ HS lactulose 10 gram/15 mL solution 10 g PO DAILY methenamine hippurate 1 gram tablet 1 g PO BID nitrofurantoin macrocrystal 100 mg capsule 100 mg PO HS Rx Instructions: must administer with a meal/food nystatin 100,000 unit/mL suspension 1 ml PO DAILY Rx Instructions: swish and swallow oxybutynin chloride 10 mg tablet extended release 24hr 10 mg PO Patient Comments: TAKE ONE TABLET BY MOUTH EVERY DAY desmopressin 0.2 mg tablet 0.2 mg PO Ozempic 1 mg/dose (2 mg/1.5 mL) pen injector 1 mg SQ WEEKLY lisinopril 5 mg tablet 5 mg PO DAILY estradiol [Estrace] 0.01 % (0.1 mg/gram) cream 1 g VG .COMPLEX Qty: 42.5 2RF Rx Instructions: 1 g vaginal; apply blueberry size amount of cream to vagina twice weekly furosemide 40 tablet 40 mg PO DAILYP PRN (Reason: Edema) ergocalciferol (vitamin D2) 50,000 capsule 50,000 units PO WEEKLY duloxetine 60 MG capsule,delayed release(DR/EC) 60 mg PO DAILY albuterol sulfate 8.5 GM HFA aerosol inhaler 2 puffs IH TIDP PRN (Reason: Shortness Of Breath Or Wheezing) gabapentin 600 tablet 600 mg PO QID tizanidine 4 MG tablet 4 mg PO BIDP PRN (Reason: Muscle Spasm) Patient Comments: TAKE 1 TABLET BY MOUTH TWICE A DAY NEEDED fluticasone propionate 120 SPR/BOT bottle 2 spr NS DAILY nadolol 20 mg tablet 20 mg PO DAILY Patient Comments: TAKE ONE TABLET BY MOUTH EVERY DAY IN THE MORNING hydrocodone-acetaminophen 7.5-325 mg tablet See Rx Instructions .ROUTE .COMPLEX Patient Comments: TAKE ONE TABLET BY MOUTH EVERY 6 HOURS MAY CAUSE DROWSINESS Rx Instructions: TAKE ONE TABLET BY MOUTH EVERY 6 HOURS MAY CAUSE DROWSINESS albuterol sulfate 90 mcg/actuation HFA aerosol inhaler See Rx Instructions .ROUTE .COMPLEX Patient Comments: inhale 2 puffs BY MOUTH FOUR TIMES DAILY NEEDED Rx Instructions: inhale 2 puffs BY MOUTH FOUR TIMES DAILY NEEDED Mounjaro 7.5 mg/0.5 mL pen injector See Rx Instructions .ROUTE .COMPLEX Patient Comments: INJECT THE contents of 1 pen (7.5 MG / 0.5 ML) SUBCUTANEOUSLY ONCE a WEEK Rx Instructions: INJECT THE contents of 1 pen (7.5 MG / 0.5 ML) SUBCUTANEOUSLY ONCE a WEEK azithromycin [Zithromax] 250 mg tablet 250 mg PO UD DOSE PK Qty: 6 0RF Rx Instructions: Take two (2) tablets today, then one (1) tablet days #2 thru #5 benzonatate [benzonatate] 100 mg capsule 100 mg PO TIDP PRN (Reason: Cough) Qty: 30 0RF methylprednisolone 4 mg Tablets,Dose Pack 4 mg PO DIRECTED Qty: 21 0RF Clinical Impressions Clinical Impression: Closed femur fracture Stand Alone Forms Stand Alone Forms: Transfer Record - ED Discharge ED Provider: Jonathan Ramirez General Adult HPI General Chief complaint: Fall Stated complaint: fall Time Seen by Provider: 05/30/23 11:29 Mode of Arrival: EMS Source of Information: Patient Limitations: No Limitations Description of Symptoms (Recalled from ER Triage Doc. by RN): pt states fell from the standing position. pt reports she was reaching for something when she lost her balance. pts main complaint is pain in her L femur region. pt reports hitting the posterior side of her head when she fell. However, pt denies LOC or pain. pt is A&O X4 with a GCS of 15. pt states she takes 7.5mg loratab q6h, pt states she took that and an additional half. History of Present Illness HPI narrative: Patient is a 57-year-old female with history of Simmons cirrhosis, HTN, HLD, diabetes, lymphedema who presents due to leg pain. Patient's was present to help provide history. Patient states she tripped over her own feet at home, experiencing a mechanical fall and injuring her left leg. States she felt immediate pain in her left knee region and was not willing to put any weight on the leg. States she did experience mild trauma to the head however did not lose consciousness. Localizes her pain to the left knee region at this time. Denies any pain elsewhere. Denies any nausea or vomiting. States she took Lortab prior to arrival. Denies any blood thinner use. Related Data Home Medications Medication Instructions Recorded Confirmed oxybutynin chloride 5 mg tablet 5 mg PO QID overactive bladder 06/11/17 11/21/21 duloxetine 60 mg capsule,delayed 60 mg PO DAILY FIBROMYALGIA 02/10/19 02/19/23 release ergocalciferol (vitamin D2) 1,250 50,000 units PO WEEKLY Supplement 02/10/19 11/21/21 mcg (50,000 unit) capsule furosemide 40 mg tablet 40 mg PO DAILYP PRN Edema 02/10/19 11/21/21 albuterol sulfate 90 mcg/actuation 2 puffs inhalation TIDP PRN 02/11/19 02/19/23 aerosol inhaler Shortness Of Breath Or Wheezing gabapentin 600 mg tablet 600 mg PO QID Neuropathy 02/11/19 02/19/23 tizanidine 4 mg tablet 4 mg PO BIDP PRN Muscle Spasm 02/11/19 02/19/23 fluticasone propionate 50 2 spr intranasal DAILY nasal 02/17/19 02/19/23 mcg/actuation nasal allergies spray,suspension nitrofurantoin macrocrystal 100 mg 100 mg PO HS 08/22/20 11/21/21 capsule nystatin 100,000 unit/mL oral 1 ml PO DAILY 08/22/20 11/21/21 suspension desmopressin 0.2 mg tablet 0.2 mg PO 11/20/20 11/21/21 lisinopril 5 mg tablet 5 mg PO DAILY 11/20/20 02/19/23 oxybutynin chloride 10 mg 10 mg PO 11/20/20 11/21/21 tablet,extended release 24 hr semaglutide 1 mg/dose (2 mg/1.5 1 mg SQ WEEKLY 11/20/20 11/21/21 mL) subcutaneous pen injector (Ozempic) semaglutide 2 mg/dose (8 mg/3 mL) 2 mg SQ WEEKLY 10/18/21 11/21/21 subcutaneous pen injector (Ozempic) insulin glargine 100 unit/mL (3 10 unit SQ HS 11/21/21 02/19/23 mL) subcutaneous pen (Mireille Yi U-100 Insulin) lactulose 10 gram/15 mL oral 10 g PO DAILY 11/21/21 02/19/23 solution methenamine hippurate 1 gram tablet 1 g PO BID 11/21/21 02/19/23 rifaximin 550 mg tablet (Xifaxan) 550 mg PO BID 11/21/21 02/19/23 albuterol sulfate 90 mcg/actuation See Rx Instructions .Route .COMPLEX 02/19/23 02/19/23 aerosol inhaler hydrocodone 7.5 mg-acetaminophen See Rx Instructions .Route .COMPLEX 02/19/23 02/19/23 325 mg tablet nadolol 20 mg tablet 20 mg PO DAILY 02/19/23 02/19/23 tirzepatide 7.5 mg/0.5 mL See Rx Instructions .Route .COMPLEX 02/19/23 02/19/23 subcutaneous pen injector (Teresa) Previous Rx's Medication Instructions Recorded estradiol 0.01% (0.1 mg/gram) 1 g vaginal .COMPLEX #42.5 grams 01/15/22 vaginal cream (Estrace) azithromycin 250 mg tablet 250 mg PO UD DOSE PK #6 tabs 02/19/23 (Zithromax) benzonatate 100 mg capsule 100 mg PO TIDP PRN Cough #30 caps 02/19/23 methylprednisolone 4 mg tablets in 4 mg PO DIRECTED #21 tabs 02/19/23 a dose pack Allergies Allergy/AdvReac Type Severity Reaction Status Date / Time levofloxacin [From Levaquin] Allergy hallucinate Verified 05/30/23 11:25 s NSAIDS (Non-Steroidal Allergy Verified 05/30/23 11:25 Anti-Inflamma Penicillins Allergy itching Verified 05/30/23 11:25 sulfamethoxazole Allergy Verified 05/30/23 11:25 [From Bactrim] trimethoprim [From Bactrim] Allergy Verified 05/30/23 11:25 PFSH PFSH Disclaimer: The information contained in this section may have been updated after the patient was seen, as this information can be updated by other users. Social History Smoking Status: Never smoker alcohol intake: current counseling provided: provider counseling substance use type: denies use current occupational status: employed Travel in the last 8 weeks: None household members: spouse housing: house current occupation: [employer] current occupational exposures/hazards: No caffeine: Yes ROS Obtained: Yes All systems reviewed & no additional complaints except as documented Musculoskeletal Musculoskeletal: Reports arthralgias Physical Exam General General appearance: alert, in no apparent distress and obese Head Head exam: atraumatic, normocephalic and normal inspection Eye Eye exam: Present normal appearance, PERRL and EOMI ENT ENT exam: Present normal exam, normal oropharynx, mucous membranes moist, TM's normal bilaterally and normal external ear exam Neck Neck exam: Present normal inspection, full ROM and trachea midline; Absent meningismus or lymphadenopathy Chest Chest inspection: Present normal inspection and symmetric chest wall rise; Absent tenderness Respiratory Respiratory exam: Present normal lung sounds bilaterally; Absent respiratory distress Cardiovascular Cardiovascular exam: Present regular rate and normal rhythm; Absent JVD Abdominal Exam Abdominal exam: Present soft and normal bowel sounds; Absent distention, tenderness or guarding Extremities Exam Extremities exam: Present normal inspection, full ROM, tenderness and normal capillary refill; Absent calf tenderness Back Exam Back exam: Present normal inspection; Absent tenderness Neurological Exam Neurological exam: Present alert and oriented X3 Psychiatric Psychiatric exam: Present normal affect and normal mood Skin Skin exam: Present warm, dry, intact and normal color Lymphatic Lymphatic Findings: no adenopathy Medical Decision Making Stefan Inquiry Pt receiving controlled substance: No Stefan was queried for this patient: No Vital Signs: 05/30/23 11:12 05/30/23 11:15 05/30/23 11:31 Temperature 97.5 F L Temperature Source Oral Pulse Rate 78 91 H Pulse Rate [Left] 94 H Respiratory Rate 16 Blood Pressure 110/67 Blood Pressure [Right Arm] 95/74 L Blood Pressure Mean [Right Arm] 81 Blood Pressure Source [Right Arm] Automatic Cuff Blood Pressure Position [Right Arm] Sitting 02 Sat by Pulse Oximetry 100 100 100 Oxygen Delivery Method Room Air 05/30/23 12:30 05/30/23 13:15 05/30/23 13:31 Temperature Temperature Source Pulse Rate 96 H 99 H 95 H Pulse Rate [Left] Respiratory Rate Blood Pressure 121/60 129/67 112/57 L Blood Pressure [Right Arm] Blood Pressure Mean [Right Arm] Blood Pressure Source [Right Arm] Blood Pressure Position [Right Arm] 02 Sat by Pulse Oximetry 99 100 100 Oxygen Delivery Method 05/30/23 14:00 Temperature Temperature Source Pulse Rate 100 H Pulse Rate [Left] Respiratory Rate Blood Pressure 110/69 Blood Pressure [Right Arm] Blood Pressure Mean [Right Arm] Blood Pressure Source [Right Arm] Blood Pressure Position [Right Arm] 02 Sat by Pulse Oximetry 100 Oxygen Delivery Method Orders (Tests/Meds): ED MEDICATIONS Discontinued Medications Generic Name Dose Route Start Last Admin Trade Name Ry PRN Reason Stop Dose Admin Morphine Sulfate 4 mg 05/30/23 12:15 05/30/23 12:42 Morphine 4mg/Ml Syringe IV 05/30/23 12:16 4 mg ONCE ONE Administration ORDERS Category Date Time Status CT femur LT wo con Stat Cat Scan 05/30/23 12:15 Completed Femur XR left 2 views [XR femur LT 2V] Stat Exams 05/30/23 11:37 Completed Hip XR left minimum 2 views [XR hip LT 2-3V w/pelvis] Exams 05/30/23 11:37 Completed Stat Knee XR left 2 views [XR knee LT 2V] Stat Exams 05/30/23 11:37 Completed Medical Decision Narrative: In summary, patient is a 57-year-old female, evaluated in the emergency department today due to fall with left leg pain. On arrival, patient is hemodynamically stable with normal vital signs. On examination, patient has tenderness to palpation of left knee and lower thigh. Differential diagnosis includes but is not limited to fracture, dislocation, musculoskeletal strain. Patient given IV morphine. Workup initiated including x-rays of left hip/femur/knee, CT left femur without contrast. Imaging independently interpreted by me and significant for x-ray of left femur demonstrating comminuted displaced distal femur fracture. CT left femur reviewed also demonstrating comminuted displaced distal femur fracture. On reevaluation, patient's pain is improved. Orthopedics contacted, unable to take patient. Will plan for transfer. transfer center contacted. Patient accepted for transfer to [facility] by Dr. Zacarias. Patient agreeable to transfer. Additional history was provided by family. Critical Care Critical Care Time Critical Care Time: No
--- NOTE | 2023-05-30 12:15 | CT_ITS ---
FINAL REPORT TECHNIQUE: Thin section axial CT images with coronal and sagittal reformats were performed of the left femur. This study was performed with techniques to keep radiation doses as low as reasonably achievable (ALARA). Individualized dose reduction techniques using automated exposure control or adjustment of mA and/or kV according to the patient''s size were employed. CLINICAL HISTORY: femur fx COMPARISON: None FINDINGS: There is a severely comminuted fracture of the distal femoral diaphysis. There is full shaft width lateral displacement of the distal fracture fragments. There are multiple comminuted fragments at the level of the fracture. On the sagittal view, there is anterior angulation of the distal fracture fragment. There is no definite extension to the articular surface. The distal extension of the fracture terminates along the lateral aspect of the lateral femoral condyle. There are no masses or fluid collections. There are no soft tissue abnormalities. IMPRESSION: Severely comminuted fracture distal femoral diaphysis with no definite extension to the articular surface. Reviewed, Interpreted and Dictated by Byron Hallman MD Transcribed by Alissa Cano Authenticated and [facility]
[2023-05-30] MEDS: MORPHINE 4MG/ML SYRINGE 4 MG IV ×2 (12:42→16:09)
--- NOTE | 2023-05-30 12:58 | PC.NURSE ---
placed a pure wick. pt states she does not need anything at this time. pt is visiting with family.
--- NOTE | 2023-05-30 13:00 | PC.NURSE ---
Called Dr Cifuentes office, no answer, called well servicing rig operator to have him paged.
--- NOTE | 2023-05-30 13:25 | PC.NURSE ---
I informed the pt/family that we are waiting to hear back from .
--- NOTE | 2023-05-30 14:30 | PC.NURSE ---
Zac RN speaking with call center for ortho doctor
--- NOTE | 2023-05-30 14:32 | PC.NURSE ---
radiology transferring images to [facility]
--- NOTE | 2023-05-30 14:33 | PC.NURSE ---
speaking with ortho
--- NOTE | 2023-05-30 14:40 | PC.NURSE ---
pt accepted by Dr. Redd for ortho at
--- NOTE | 2023-05-30 14:47 | PC.NURSE ---
Report called to Kendrick BLANCO at [facility].
[2023-05-30] MEDS: ONDANSETRON 4MG/2ML VIAL 4 MG IV ×2 (16:09→17:16)
--- NOTE | 2023-05-30 16:18 | PC.NURSE ---
updated pt and family about ems on a transfer and as soon as they clear she will be taken to [place]
[2023-05-30] MEDS: HYDROMORPHONE 2MG/ML SYRINGE 1 MG IV (17:16)
--- NOTE | 2023-05-30 17:22 | PC.NURSE ---
Pt was ready to be transported, pt stated that pain was coming back. ASked Dr Jain for verbal order, she stated 1 mg dilaudid and 4 zofran.
== END 2023-05-30 17:44 | disposition short-term general hospital (02) ==
PROVIDERS: Emergency Provider Student in an Organized Health Care Education/Training Program; PCP Internal Medicine Adolescent Medicine
DX: S72.352A Displaced comminuted fracture of shaft of left femur, initial encounter for closed fracture (principal); I10 Essential (primary) hypertension; E78.5 Hyperlipidemia, unspecified; E11.9 Type 2 diabetes mellitus without complications; K75.81 Nonalcoholic steatohepatitis (NASH); W01.10XA Fall on same level from slipping, tripping and stumbling with subsequent striking against unspecified object, initial encounter; Z79.4 Long term (current) use of insulin; Z79.85 Long-term (current) use of injectable non-insulin antidiabetic drugs
CPT/HCPCS: 73502; 73552; 73560; 73700; 96374; 96375; 96376; 99285; J2405